=== PATIENT | female | born 1940 | race Caucasian/White ===

== ENCOUNTER 2017-11-19 22:36 | Inpatient (IN) | payer MEDICARE, OTHER, SELFPAY ==
[2017-11-19 22:40] VITALS: BP 149/77; PULSE 97; RESP 15; TEMP 36.3; O2SAT 97; BMI 29.2
--- NOTE | 2017-11-19 23:02 | ED.ABDPAIN ---
HPI - Abdominal Pain General Chief Complaint: Abdominal Pain Stated Complaint: BACK AND STOMACH PAIN Time Seen by Provider: 11/19/17 23:02 Source: patient and family Mode of arrival: ambulatory Limitations: no limitations History of Present Illness HPI narrative: Patient presents to the emergency department with a chief complaint of worsening generalized abdominal pain with nausea and vomiting since noon today. She has a history of small-bowel obstruction and states this feels similar. Patient denies fever but has had chills at home. MD complaint: abdominal pain Onset (ago): hour(s) Pain Consistency: constant Location: diffuse Severity: severe Severity scale (1-10): 10 Quality: stabbing and aching Radiation: none Migration to: no migration Relieving factors: nothing Exacerbating factors: nothing Related Data Home Medications Medication Instructions Recorded Confirmed CA PANTOTHENATE/FOLIC ACID/VIT 1 tab PO QDAY #0 tab 02/02/13 (MULTIVITAMIN) Glucosamine Sulfate (GLUCOSAMINE) 1,000 mg PO BID #0 02/02/13 [FATOUMATA RED] 300 mg PO QDAY #0 02/02/13 [POMEGRANATE] 1 cap PO BID #0 02/02/13 Previous Rx's Medication Instructions Recorded ASPIRIN (Aspirin EC) 81 mg PO DAILY #90 07/14/12 simvastatin 40 mg PO QDAYPM #90 tab 12/23/16 lisinopril 10 mg PO Q DAY #90 tab 01/21/17 carvedilol [Coreg] 3.125 mg PO BID #60 tab 02/09/17 diclofenac sodium 50 mg PO QDAY #90 tab 04/07/17 albuterol sulfate [Proventil HFA] 2 puff INH Q4HP PRN #1 inh 09/01/17 azithromycin [Zithromax] 0 OR SEE INSTRUCTIONS #6 tab 09/01/17 Allergies Allergy/AdvReac Type Severity Reaction Status Date / Time No Known Drug Allergies Allergy Verified 11/19/17 22:40 Review of Systems Review of Systems All systems reviewed & are unremarkable except as noted in HPI and below Constitutional Denies chills, Denies fever(s), Denies lethargy and Denies weakness Eyes Denies change in vision, Denies eye discharge, Denies irritation and Denies loss of vision ENT Ears, Nose, Mouth, and Throat: Denies change in voice, Denies neck pain and Denies sore throat Cardiovascular Denies chest pain, Denies irregular heart rhythm, Denies lightheadedness, Denies palpitations, Denies dyspnea, Denies dyspnea on exertion and Denies orthopnea Respiratory Denies cough, Denies dyspnea, Denies dyspnea on exertion and Denies wheezing Gastrointestinal Gastrointestinal: Reports abdominal pain, Denies change in bowel habits, Denies diarrhea, Reports nausea and Reports vomiting Genitourinary Denies hematuria, Denies flank pain, Denies urinary incontinence and Denies urinary urgency Musculoskeletal Denies neck pain Integumentary/Breasts Denies pruritus, Denies erythema, Denies rash and Denies wounds Neurologic Denies confusion, Denies loss of vision and Denies weakness Psychiatric Denies anxiety, Denies confusion, Denies depression, Denies homicidal ideation and Denies suicidal ideation Endocrine Denies palpitations Hematologic/Lymphatic Denies easy bruising Allergic/Immunologic Denies wheezing PFSH Surgical History Status post colonoscopy Status post hysterectomy Family History Brother Colorectal cancer, Onset Age: 68 Mother CAD (coronary artery disease) Social History Smoking Status: Never smoker Exam Narrative Exam Narrative: Pleasant 77-year-old female in significant distress, pacing in the room clutching her abdomen Initial Vital Signs Initial Vital Signs: Vital Signs Temperature 97.4 F L 11/19/17 22:40 Pulse Rate 97 H 11/19/17 22:40 Respiratory Rate 15 11/19/17 22:40 Blood Pressure 149/77 H 11/19/17 22:40 Pulse Oximetry 97 11/19/17 22:40 Const General: cooperative, well developed and acute distress Nutritional Appearance: well nourished Orientation: alert, awake, oriented x3 and not confused [facility] Head: normocephalic and atraumatic Ears: external ears normal and TM's normal bilaterally Nose: external nose normal and No nasal discharge Face and sinus: sinuses nontender, face symmetric, no sinus tenderness and No dry mucous membranes Mouth: oral mucosae normal and moist mucous membranes Teeth and gingiva: dentition normal Throat: tonsils normal and uvula midline Eyes General: appearance normal, both eyes and all related structures Eyelids: eyelids normal Conjunctivae: conjunctivae normal Sclera: sclerae normal Pupils: PERRL EOM: EOM intact bilaterally Chest Chest: normal inspection of the chest Cardio Rate: regular rate Rhythm: regular rhythm Heart Sounds: no click, no gallops, no murmurs and no rubs Pulses: normal peripheral pulses GI Inspection: distended Palpation: soft, no hepatosplenomegaly, No guarding, No pulsatile mass and tender Auscultation: normal bowel sounds Skin General: no rashes or lesions noted, No jaundice and No petechiae Neuro General: alert, oriented x3, gait normal and no focal motor deficits Speech: speech normal Course Orders Ordered: ED Orders 11/19/17 23:42 Complete Blood Count AUTO DIFF Stat Comprehensive Metabolic Panel Stat Lipase Stat 11/19/17 23:43 XR acute abdomen series Stat Troponin I Stat 11/19/17 23:53 Urinalysis and Microscopic Stat 11/20/17 00:52 CT abdomen pelvis w con Stat Ondansetron HCl (Zofran) 4 mg IV Q4HR PRN PRN Reason: Nausea And Vomiting Last Admin: 11/20/17 00:24 Dose: 4 mg Discontinued Medications Hydromorphone HCl (Dilaudid) 0.5 mg IV NOW ONE Stop: 11/19/17 23:44 Last Admin: 11/20/17 00:24 Dose: 0.5 mg Sodium Chloride (Normal Saline 0.9%) 1,000 mls @ 1,000 mls/hr IV BOLUS ONE Stop: 11/20/17 00:42 Last Infusion: 11/20/17 01:40 Dose: 0 mls/hr Admin: 11/20/17 00:24 Dose: 1,000 mls/hr Reevaluation(s) Reevaluation #1: Patient feeling tremendous improvement after Dilaudid Consultations Consultation #1: call to recreational therapy aide Gen Surgery (Dr. Dumont) regarding admission whom is happy to accept and asks that we place an NG tube prior to sending upstairs Vital Signs - 8 hr 11/19/17 22:40 Temperature 97.4 F L Pulse Rate 97 H Respiratory Rate 15 Blood Pressure 149/77 H Pulse Oximetry 97 MDM - Abdominal Pain Lab Data Result diagrams: 11/20/17 00:20 11/20/17 00:20 Lab Results 11/20/17 11/20/17 11/20/17 Range/Units 00:20 00:20 00:20 WBC 11.4 H (4.5-11.0) X10^3/uL RBC 4.90 (4.0-5.2) X10^6/uL Hgb 14.3 (12.0-16.0) g/dL Hct 43.5 (36-46) % MCV 88.8 (80-100) fL MCH 29.2 (26-34) PG MCHC 32.8 (30-36) % RDW 14.5 (11.6-14.8) % Plt Count 260 (150-400) X10^3/uL Neut % (Auto) 79.2 H (50-75) % Lymph % (Auto) 13.4 L (25-40) % [facility] % (Auto) 6.4 (3-14) % Eos % (Auto) 0.5 L (2-4) % Baso % (Auto) 0.5 (0-2) % Neut # (Auto) 9000 H (1210-5128) /uL Sodium 143 (137-145) mmol/L Potassium 4.7 (3.4-5.1) mmol/L Chloride 106 (98-107) mmol/L Carbon Dioxide 24 (22-32) mmol/L BUN 22 H (7-17) mg/dL Creatinine 0.70 (0.52-1.04) mg/dL Estimated GFR > 60.0 (>60) mL/min BUN/Creatinine Ratio 31.4 H (6-22) Glucose 156 H (80-110) mg/dL Calcium 9.4 (8.4-10.2) mg/dL Total Bilirubin 0.5 (0.2-1.3) mg/dL AST 34 (14-36) IU/L ALT 32 (9-52) IU/L Alkaline Phosphatase 70 (38-126) U/L Troponin I < 0.012 (0.01-0.034) ng/mL Total Protein 7.5 (6.3-8.2) g/dL Albumin 4.3 (3.5-5.0) g/dL Globulin 3.2 (1.7-4.1) g/dL Albumin/Globulin Ratio 1.3 (1.0-2.8) Lipase 96 (23-300) U/L Discharge Plan Departure Patient Disposition: Admitted As Inpatient Clinical Impression: Small bowel obstruction
--- NOTE | 2017-11-19 23:43 | DI.RAD.S_ITS ---
PROCEDURE: XR ACUTE ABDOMEN SERIES INDICATIONS: Abdominal pain, history of small bowel obstruction TECHNIQUE: One view chest and two views of the abdomen were acquired. COMPARISON: [facility], , ABDOMEN ACUTE SERIES, 02/06/2017, 20:52. FINDINGS: Surgical changes and devices: None. Chest: Lungs are clear. Heart size is normal. No pleural effusions. No pneumoperitoneum. Abdomen: There are air-fluid levels in the mid abdomen. The moderate amount of stool in proximal colon and paucity of bowel gas in distal colon. No suspicious calcifications. Visualized solid organ contours appear normal. Bones: No suspicious bony lesions. Scoliosis and degenerative changes in lumbar spine. IMPRESSION: Suspected early small bowel obstruction. Dictated by: Bahman Jsohua M.D. on 11/20/2017 at 7:43 Approved by: Bahman Joshua M.D. on 11/20/2017 at 7:44
[2017-11-20] VITALS (13 sets, daily range): BP systolic 95–157; BP diastolic 41–76; PULSE 71–92; RESP 11–18; TEMP 36.5–37.6; O2SAT 93–99; BMI 29.2
--- NOTE | 2017-11-20 | PATH_ITS ---
[facility] Accession Number: [id number] . 01 Material submitted: . SMALL BOWEL SEGMENT, POSSIBLE MASS . 02 Diagnosis: Segment of Small Bowel (6.2 cm in length): Localized ulcer measuring 2.1 x 0.3 cm with underlying fibrosis. Remainder of small bowel appears unremarkable. Negative for malignancy and significant atypia. Seven benign mesenteric lymph nodes. MRV/11/25/2017 . 02 Electronically signed: . Shashank Oneill MD, Pathologist NPI- [id number] . 01 Gross description: . Received in formalin, labeled [place], [place] and small bowel segment consists of a segment of small bowel, 6.2 cm in length and 3 cm in diameter. The segment has been previously opened. Each resection margin is received stapled closed with a long suture designating the proximal margin. There is a suture near the area of previous opening that designates an area of thickening. The radial margin is inked black. Opening of the segment reveals a slightly ulcerated area without folds at the area of designated wall thickening. The ulceration is 2.1 x 0.3 cm. The ulceration is 3.3 cm to the proximal margin and 2.2 cm to the distal margin. This ulceration is 3.2 cm to the nearest radial margin. 0.6 cm distal to the lesion is an area of submucosal pigmentation. The remainder of the mucosa has the usual felix folds. Sectioning and palpation of the attached fat reveals multiple possible lymph nodes. Sofa Cover Inspector sections of the specimen are submitted as follows: A1-proximal margin; A2-distal margin; A3-radial margin, en face; R7-4-kqfpybzoge and submucosal pigmentation; L5-6-wxzdnyfv lymph nodes in toto. (ELAINE:[id number]) /MRV . 02 Pathologist provided ICD-10: K63.3 . 02 CPT . 163185 Performed at: 01 [facility] [address] [place] [address], [place], [place] [id number] MD Mark Carson MD Phone: [phone] Performed at: 02 [facility] [address] [place], [place] [id number] MD Robin Salvador MD Phone: [phone]
[2017-11-20] MEDS: SODIUM CHLORIDE 0.9% 1,000 ML 1000 ML IV (00:24)
[2017-11-20] MEDS: ONDANSETRON 4 MG/2 ML INJ IV ×3 (00:24→13:32)
[2017-11-20] MEDS: HYDROMORPHONE 0.5 MG INJ IV ×2 (00:24→03:22)
[2017-11-20 00:32] LABS: Add Manual Diff / Slide Review NO; Basophils Percent Auto 0.5 % (0-2); Eosinophils Percent Auto 0.5 % (2-4); Hematocrit 43.5 % (36-46); Hemoglobin 14.3 g/dL (12.0-16.0); Lymphocytes Percent Auto 13.4 % (25-40); Mean Corpuscular HGB Conc 32.8 % (30-36); Mean Corpuscular Hemoglobin 29.2 PG (26-34); Mean Corpuscular Volume 88.8 fL (80-100); Monocytes Percent Auto 6.4 % (3-14); Neutrophils Absolute Auto 9000 /uL (3000-5900); Neutrophils Percent Auto 79.2 % (50-75); Platelet Count 260 X10^3/uL (150-400); Red Cell Distribution Width 14.5 % (11.6-14.8); White Blood Cell Count 11.4 X10^3/uL (4.5-11.0)
[2017-11-20 00:44] LABS: Alanine Aminotransferase 32 IU/L (9-52); Albumin 4.3 g/dL (3.5-5.0); Albumin Globulin Ratio 1.3 (1.0-2.8); Alkaline Phosphatase 70 U/L (38-126); Aspartate Aminotransferase 34 IU/L (14-36); BUN Creatinine Ratio 31.4 (6-22); Bilirubin Total 0.5 mg/dL (0.2-1.3); Blood Urea Nitrogen 22 mg/dL (7-17); Calcium 9.4 mg/dL (8.4-10.2); Carbon Dioxide 24 mmol/L (22-32); Chloride 106 mmol/L (98-107); Estimated Glomerular Filt Rate > 60.0 mL/min (>60); Globulin 3.2 g/dL (1.7-4.1); Glucose 156 mg/dL (80-110); HEMOLYSIS < 15 (0-50); Lipase 96 U/L (23-300); Potassium 4.7 mmol/L (3.4-5.1); Sodium 143 mmol/L (137-145); Total Protein 7.5 g/dL (6.3-8.2)
--- NOTE | 2017-11-20 00:52 | DI.CT.S_ITS ---
PROCEDURE: CT ABDOMEN PELVIS W CON INDICATIONS: severe abdominal pain,nausea, vomiting, history of obstruction TECHNIQUE: After the administration of intravenous contrast, 5 mm thick sections acquired from the diaphragm to the symphysis. 5 mm coronal and sagittal reformats were acquired. For radiation dose reduction, the following was used: automated exposure control, adjustment of mA and/or kV according to patient size. COMPARISON: [facility], CT, ABDOMEN/PELVIS WITH CONTRAST, 07/19/2017, 10:36. [facility], CR, XR ACUTE ABDOMEN SERIES, 11/19/2017, 23:24. FINDINGS: Image quality: Excellent. ABDOMEN: Lung bases: Lung bases are clear. Heart size is normal. Solid organs: Liver is normal in size and enhancement. Gallbladder is absent. Biliary system is non dilated. Pancreas enhances normally. Spleen is normal in size and enhancement. No adrenal nodules. Kidneys demonstrate normal size and enhancement, without hydronephrosis. Peritoneum and bowel: Stomach and proximal small bowel loops are filled with fluid and mildly distended. Proximal small bowel with measure up to 3.5 cm in diameter. Distal small bowel loops and colon loops are decompressed. The transitional zone is in the right lower quadrant. Appendix is not identified. There is a small amount of free fluid. No free air. Nodes and vessels: No retroperitoneal or mesenteric adenopathy by size criteria. Aorta and inferior vena cava are normal in size. Miscellaneous: No ventral hernias. PELVIS: Genitourinary: Bladder wall thickness is normal. Uterus is absent consistent with hysterectomy. No adnexal mass. A small amount of free fluid is noted in the cul-de-sac.. Miscellaneous: No inguinal hernias or adenopathy. Bones: No suspicious bony lesions. No vertebral body compression fractures. Scoliosis. There are degenerative changes in lumbar spine. IMPRESSION: 1. The CT findings are consistent with small bowel fashion. The transitional zone is in the right lower quadrant, presumably involving the distal ileum. 2. Small amount of free fluid. No free air. 3. Hysterectomy. No significant discrepancy with the monitoring tech radiology preliminary report. Dictated by: Bahman Joshua M.D. on 11/20/2017 at 7:53 Approved by: Bahman Joshua M.D. on 11/20/2017 at 8:00
[2017-11-20 00:56] LABS: Troponin I < 0.012 ng/mL (0.01-0.034)
--- NOTE | 2017-11-20 02:56 | DI.RAD.S_ITS ---
PROCEDURE: XR ABDOMEN 1V INDICATIONS: NG placement TECHNIQUE: One view of the abdomen acquired. COMPARISON: [facility], CR, XR ACUTE ABDOMEN SERIES, 11/19/2017, 23:24. FINDINGS: There is a nasogastric tube with the tip in the proximal stomach. The sidehole of the NG tube is at the GE junction. Surgical changes and devices: None. Bowel: Small bowel loops are mildly distended. Soft tissues: No suspicious abdominal calcifications. Visualized solid organ contours appear normal in size. Bones: No suspicious bony lesions. Scoliosis and degenerative changes in lumbar spine. IMPRESSION: NG tube is in the proximal stomach. Dictated by: Bahman Joshua M.D. on 11/20/2017 at 7:48 Approved by: Bahman Joshua M.D. on 11/20/2017 at 7:49
[2017-11-20] MEDS: SODIUM CHLORIDE 0.9% 1,000 ML 125 ML IV ×2 (04:13→11:36)
--- NOTE | 2017-11-20 04:38 | PC.NURSE ---
Pt admitted to unit AxOx3. Telemetry placed. NPO. IVF and FINISHING MACHINE OPERATOR connected as ordered. No complaints of pain at this time. No nausea/vomitting. NGT is a 16Fr connected to low intermittent suction. Pt states she is a exercise/diet controlled diabetic with some numbness in bilateral feet at baseline. Ambulatory. Bed alarm on. [place] blanchable skin to b/l buttocks. T&P q2h. Continuous pulse ox connected, tolerating room air at 95% with no resp distress noted. Call chisholm in reach.
[2017-11-20] MEDS: HYDROMORPHONE PCA 6 MG/30 ML PCA.VIAL IV (06:51)
--- NOTE | 2017-11-20 11:11 | PM.HP.1 ---
History of Present Illness Date Patient Seen: 11/20/17 Time Patient Seen: 09:00 Chief complaint: BACK AND STOMACH PAIN Narrative: 76-year-old female known to me from prior admissions for acute onset of abdominal pain, nausea, and vomiting consistent with small-bowel obstruction who presented several hours ago to the emergency department here at [facility] with recurrent such symptoms. She states that her episode began at approximately noon yesterday of acute onset. She was in her normal state of health yesterday morning. In the early afternoon yesterday she began to experience diffuse abdominal pain and nausea. Nausea persisted and is still present. She did have 1 episode emesis. She attempted to eat some crackers at approximately 1 o'clock yesterday afternoon but did not find this agreeable. She has since been anorexic and avoiding any type of oral intake. Pain progressed significantly and is now mainly in the right lower quadrant radiating to the back. Pain is described as sharp but intermittently cramping and unrelenting. Last bowel movement was reportedly normal yesterday morning. However, she has not really passed any significant flatus since then. Denies any dysuria or hematuria. She has been unable to find a comfortable position either sitting or lying down. Currently her pain is improving with intravenous narcotic medications. Denies any subjective fever or chills. Feels mildly subjectively distended currently. Patient History Medical History Coronary artery disease (Acute) Diabetic neuropathy (Acute) Hyperlipidemia (Acute) Myocardial infarction (Acute) Type 2 diabetes mellitus (Acute) Surgical History History of cholecystectomy (Acute) History of coronary artery stent placement (Acute) Status post coronary angiogram (Acute) Status post colonoscopy Status post hysterectomy Family & Social History Family History: Reviewed 11/20/17 by Nate Vo MD Social History: household members spouse Prior Living Arrangements House Safety & Behavioral: Feels Safe in Current Yes Environment Been Physically Hurt or No Threatened By a Person Suicidal Ideation Description None Suicide Plan Description No Plan Tobacco & Substance use: Smoking Status Never smoker alcohol intake frequency 0-2 drinks per day Substance Use Type does not use Meds Home Medications Medication Instructions Recorded Confirmed Type ASPIRIN (Aspirin EC) 81 mg PO DAILY #90 07/14/12 11/20/17 Rx CA PANTOTHENATE/FOLIC ACID/VIT 1 tab PO QDAY #0 tab 02/02/13 11/20/17 History (MULTIVITAMIN) Glucosamine Sulfate (GLUCOSAMINE) 1,000 mg PO BID #0 02/02/13 11/20/17 History [FATOUMATA RED] 300 mg PO QDAY #0 02/02/13 11/20/17 History [POMEGRANATE] 1 cap PO BID #0 02/02/13 11/20/17 History simvastatin 40 mg PO QDAYPM #90 tab 12/23/16 11/20/17 Rx lisinopril 10 mg PO Q DAY #90 tab 01/21/17 11/20/17 Rx carvedilol [Coreg] 3.125 mg PO BID #60 tab 02/09/17 11/20/17 Rx diclofenac sodium 50 mg PO QDAY #90 tab 04/07/17 11/20/17 Rx albuterol sulfate [Proventil HFA] 2 puff INH Q4HP PRN #1 inh 09/01/17 11/20/17 Rx Allergies Allergy/AdvReac Type Severity Reaction Status Date / Time No Known Drug Allergies Allergy Verified 11/19/17 22:40 Review of Systems Constitutional Constitutional: Denies chills, Reports fatigue, Denies fever(s) and Reports poor appetite Eyes Eyes: Denies change in vision and Reports requires corrective lenses ENT Ears, Nose, Mouth, and Throat: No change in voice and No throat swelling Cardiovascular Cardiovascular: Denies chest pain at rest, Denies chest pain with activity, Denies rapid, pounding, or irregular heartbeat and Denies shortness of breath Respiratory Respiratory: Denies dyspnea and Denies wheezing Gastrointestinal Gastrointestinal: Reports as per HPI, Denies melena and Denies hematochezia Genitourinary Genitourinary: Denies urinary hesitancy Musculoskeletal Musculoskeletal: Reports joint swelling, Denies numbness and Denies tingling Integumentary/Breasts Skin/Breast: Denies change in breast shape and Denies unusual bruising Neurologic Neurologic: Denies numbness, Denies tingling and Denies tremor(s) Psychiatric Psychiatric: Denies anxiety and Denies depression Endocrine Endocrine: Reports fatigue and Denies palpitations Hematologic/Lymphatic Hematologic/Lymphatic: Denies easy bleeding and Denies easy bruising Allergic/Immunologic Allergic/Immunologic: Denies throat swelling and Denies wheezing Exam Vital Signs (past 8 hours): - 11/20/17 03:39 11/20/17 08:00 Temperature 98.3 F 98.1 F Pulse Rate 79 71 Respiratory Rate 18 14 Blood Pressure 149/73 H 157/70 H Pulse Oximetry 94 96 Oxygen Delivery Method Room Air Narrative Exam Narrative: Well-nourished well-developed elderly female in no acute distress but does appear acutely ill. Lying in bed. She appears mildly uncomfortable. Alert oriented x3. Daughter is at the bedside for my entire visit. She has no fevers or tachycardia since admission Sclera nonicteric Nasogastric tube is present draining blood tinged bilious fluid. From the record I believe she has had approximately 600 cc output from the nasogastric tube since approximately 3 o'clock this morning. Neck is supple Chest clear to auscultation bilaterally. No crackles or wheezes. Regular rate and rhythm. Abdomen is distended and mildly tympanitic. She has hyperactive bowel sounds. She is focally tender in the right lateral abdomen with no involuntary guarding but she clearly has some element of voluntary guarding with deeper palpation. No masses. No hepatomegaly. Extremities show no clubbing, cyanosis, or edema. Dorsal pedis pulses are palpable bilaterally Objective Labs Result Diagrams: 11/20/17 00:20 11/20/17 00:20 Labs: Laboratory Results - last 24 hr 11/20/17 11/20/17 11/20/17 00:20 00:20 00:20 WBC 11.4 H RBC 4.90 Hgb 14.3 Hct 43.5 MCV 88.8 MCH 29.2 MCHC 32.8 RDW 14.5 Plt Count 260 Neut % (Auto) 79.2 H Lymph % (Auto) 13.4 L [place] % (Auto) 6.4 Eos % (Auto) 0.5 L Baso % (Auto) 0.5 Neut # (Auto) 9000 H Sodium 143 Potassium 4.7 Chloride 106 Carbon Dioxide 24 BUN 22 H Creatinine 0.70 Estimated GFR > 60.0 BUN/Creatinine Ratio 31.4 H Glucose 156 H Calcium 9.4 Total Bilirubin 0.5 AST 34 ALT 32 Alkaline Phosphatase 70 Troponin I < 0.012 Total Protein 7.5 Albumin 4.3 Globulin 3.2 Albumin/Globulin Ratio 1.3 Lipase 96 I have personally reviewed her acute abdominal series as well as her CT scan of the abdomen and pelvis done in the emergency department earlier this morning. Findings are consistent with small-bowel obstruction with air-fluid levels and dilated small bowel. There is some small amount of free fluid in the pelvis. No free air. No significant bowel wall thickening. 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 She has been symptomatic intermittently multiple times throughout the last 12 months. She has required hospitalization on a couple of occasions for such as well. She now has evidence of a significant bowel obstruction with associated mild leukocytosis and tenderness. I suspect the etiology is likely postoperative adhesions from prior surgeries. I discussed the findings and pathophysiology of small-bowel obstruction with the patient and her family once again. She clearly requires ongoing nasogastric tube decompression and IV fluid resuscitation. However, I suspect that she will require laparotomy with lysis of adhesions and possible bowel resection this admission. I discussed this with her at length. Technical details of such an operation were explained. Risks, benefits, alternatives were discussed. The alternative of observation only remains, but she has now failed to truly remain symptom free over the last several month's. Risks including but not limited to anesthesia, aspiration, bleeding, pain, need for transfusion, scars, infection, poor wound healing, need for bowel resection, anastomotic leak, need for ostomy, need for drains, bladder injury, ureter injury, liver injury small-bowel injury, colon injury, and need for further major abdominal surgery were explained at length. She also understands that she could have recurrent small-bowel obstructions in the future despite successful surgery this admission. Possibility of cardiopulmonary event was also explained. Anticipated postoperative course and recovery were reviewed as well. All questions were answered to her satisfaction, and she voiced understanding. She was agreeable to the plan. Orders were written. We will continue current regimen and resuscitation and I will reassess later today. If she shows no signs of improvement then surgery would be indicated. Quality VTE Deep Vein Thrombosis/Pulmonary Embolism Present on Admission: No
--- NOTE | 2017-11-20 12:28 | RT ---
When doing patients pre op EKG the results stated that there was anteroseptal myocardial infarction and that it was probaly recent I informed Huber WU of the results and he paged doctor Gilda immediately.
--- NOTE | 2017-11-20 15:18 | PC.NURSE ---
Addendum entered by Geoff Vargas R.N. 11/20/17 17:48: report was called to Karey WU in ICU. Original Note: Addendum entered by Geoff Vargas R.N. 11/20/17 17:44: patient is off the unit for surgery at this time, notified that patient will be going to ICU post-op from surgery. Family has been notified of room change and belongings were taken down to unit by nurse Sun. Original Note: Patient is A&O x3 pleasant and cooperative w/ staff and able to make needs known when nec. Patient denies any pain at this time but states nausea is still present dispite tx given. NG tube is set to intermed. suction, drainage is dark brick red in color. CERAMIC RESTORER Dilaudid at bedside patient has yet to use any. Sched. for surgery at some point this afternoon/evening. Patient is concerned that they have yet to come get her for surgery. Surgerical nurse arrived to room at 1532 to turkey picker patietn and trans. to surg. Patient was awake and talking when left, VSS, 99% on RA. Suction was unhooked and IV was saline locked for departure to surgery.
--- NOTE | 2017-11-20 15:26 | CM.DANOTE ---
DCP Chart Review Patient is a 77 year old female who was admitted on 11/20/17 for Back Pain. Pt has MCR and TEAM for insurance and her PCP is Dr. Espinoza. EMR was reviewed. Per MD, pt to have urgent surgery this afternoon and pt has had multiple admits for her bowel issues. SW unable to complete bedside assessment today due to pt being off the floor for surgical procedure. Pt has a hx of admits for similar medical needs and has been able to d/c home with no SW needs. Pt lives at home in [place] with her and is Independent with ADL's at baseline and does not use equipment to ambulate and still drives. Plan: SW to follow closely for bedside assessment tomorrow after her surgical procedure today towards determining d/c planning needs. ALFREDO Chavez
[2017-11-20] MEDS: LACTATED RINGERS 1,000 ML 1000 ML IV ×2 (15:45→17:17)
[2017-11-20] MEDS: CEFOTETAN 2 GM/50 ML PIGGYBACK IV (16:06)
--- NOTE | 2017-11-20 16:39 | SUR.OPER ---
Supine on padded OR bed, head on pillow, arms secured on padded arm boards at <90 degrees abduction, legs uncrossed, safety belt at thigh, tape over blanket over lower legs. gel pad under heels.
--- NOTE | 2017-11-20 17:30 | PM.PROC.1 ---
Procedures Date/Time Date of procedure: 11/20/17 Time of procedure: 15:48 General Procedure description: Thoracic epidural performed for post-op pain control after laparotomy, requested by General Surgery, Dr. Vo. Patient was taken into OR and sat up with ASA monitoring. 50mcg fentanyl and 1mg Versed were given for procedural sedation. Skin prepped with chlorhexidine and allowed to fully dry. Sterile drapes, gloves and mask used. 1% lidocaine was injected at T8-9 to make skin wheal. 18ga Saya[place]ead needle with canula was engaged into spinal ligaments in left paramedian approach. Saline loss of resistance technique used to locate epidural space. SHAKIR at 4.5 cm from skin. Catheter threaded to 9cm and taped to skin using large tegaderm. Cather was aspirated with negative draw back. 3mL of 1.5% lidocaine with epinephrine was injected for test dosing. Negative test dose. Patient tolerated the procedure well. No complications.
--- NOTE | 2017-11-20 17:37 | P.PCN_ITS ---
Procedures Date/Time Date of procedure: 11/20/17 Time of procedure: 15:48 General Procedure description: Thoracic epidural performed for post-op pain control after laparotomy, requested by General Surgery, Dr. Vo. Patient was taken into OR and sat up with ASA monitoring. 50mcg fentanyl and 1mg Versed were given for procedural sedation. Skin prepped with chlorhexidine and allowed to fully dry. Sterile drapes, gloves and mask used. 1% lidocaine was injected at T8 -9 to make skin wheal. 18ga [place] [employer] needle with canula was engaged into spinal ligaments in left paramedian approach. Saline loss of resistance technique used to locate epidural space. SHAKIR at 4.5 cm from skin. Catheter threaded to 9cm and taped to skin using large tegaderm. Cather was aspirated with negative draw back. 3mL of 1.5% lidocaine with epinephrine was injected for test dosing. Negative test dose. Patient tolerated the procedure well. No complications.
[2017-11-20] MEDS: SODIUM CHLORIDE 0.9% 1,000 ML 100 ML IV (18:58)
--- NOTE | 2017-11-20 19:06 | P.OP_ITS ---
Operative Date/Time/Diagnoses - Date of procedure: 11/20/17 Time of procedure: 18:51 Post-op diagnosis: same Procedure & Clinicians Procedure: 1. Exploratory laparotomy 2. Lysis of adhesions 3. Segmental small bowel resection of the ileum 4. Primary small bowel anastomosis Same procedure as scheduled: Yes Indications: 77-year-old female who presented earlier this morning in the emergency department with nausea, vomiting, anorexia, and progressive abdominal pain. She had not had flatus or bowel movement since yesterday. Examination and evaluation were consistent with bowel obstruction. This is actually her 3rd or 4th episode of such within the last year or so. She was therefore recommended to undergo laparotomy. Surgeon: Nate Vo Click Yes if Unassisted: Yes Anesthesia Type: General and Epidural (Placed per Anesthesiology for postoperative analgesia) Operative Notes Findings: 1. Pelvic adhesion between the sigmoid colon and right fallopian tube serving as point of obstruction within the ileum 2. Completely viable small bowel and colon 3. Small amount of serous fluid in the pelvis but no purulent material 4. 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 Widely patent small-bowel anastomosis at the conclusion of the case Specimen(s): other (Segment of small bowel) Implants & Drains: None Estimated Blood Loss (mL): 25 Blood products transfused: none Procedure in detail: After obtaining informed consent the patient was brought to the operating room placed supine on the table. After placement of the epidural catheter per Anesthesiology Service a Perez catheter was inserted once she had been placed under general anesthesia. Please see the anesthesia record for details. Abdomen was prepped and draped in usual sterile fashion. All pressure points were padded appropriately prior to the case as well. A SCOAP time-out was performed per standard protocol. Vertical midline incision was created with a 10. Scalpel blade from just above the umbilicus incorporating the upper portion of the existing midline hysterectomy scar. Bovie was used to achieve hemostasis and carried the dissection down to the subcutaneous tissue to the rectus fascia. Fascia was divided in the midline above the umbilicus in the surgeon's finger was inserted into the abdominal cavity. Remaining portion of the fascia for the length of the incision was opened with the Bovie over the Surgeons inserted fingers. Manual retraction was achieved with Da Silva retractors and the abdomen was explored. Findings are as above. Fluid was suctioned from the pelvis. The small bowel point of obstruction was easily reduced from the adhesion in the adhesion divided easily with the Bovie. Fallopian tubes and ovaries bilaterally were examined and noted be completely normal consistent with age. No evidence of masses. Small bowel was subsequently examined from the ligament of Treitz to the ileocecal valve. In fact, I examined the bowel on 3 separate occasions due to the findings of the possible stricture at the point of obstruction. Cecum, ascending colon, transverse colon, descending colon, and sigmoid colon to the rectosigmoid junction showed diverticulosis but no evidence of inflammation or palpable masses. No retroperitoneal masses were palpable. Stomach was normal with a nasogastric tube in good position. Liver could not be visualized due to significant adhesions from prior open cholecystectomy. Omentum was otherwise unremarkable as well. Pelvis was without masses. No other significant adhesions were identified. The questionable area of the small bowel at the point of obstruction was again meticulously examined and palpated. There appeared to be an associated stricture intraluminally but no obvious masses or other disease along the serosal surface. Entire small bowel mesentery was normal without masses or lymphadenopathy. Because of the small isolated segment of the small bowel that appeared to be strictured I elected to resect this portion and perform a primary anastomosis. Hemostats were used to create defect along the mesentery proximally and distally through which the 60 mm FINESSE stapler was inserted and fired. After dividing the bowel proximally and distally the mesentery was taken down between hemostats using Metzenbaum scissors. Three 0 silk ties were used to achieve hemostasis. Bowel was quite viable and there was adequate bleeding from the staple lines. Specimen was opened on the back table with a 15. Scalpel blade and again findings are as above. There was clearly a visible area of stricture within the mucosa and submucosa extending into the bowel wall. Again, however, this did not appear to be consistent with neoplasm but was obvious a point of obstruction. Gowns and gloves were changed. Primary anastomosis between the proximal and distal ileum was then performed by approximating the anti mesenteric sides of the bowel with interrupted 3 0 silk seromuscular Lembert sutures. Anti mesenteric corners of the staple lines proximally and distally were removed with curved Rai scissors and separate limbs of the 60 mm FINESSE stapler were then inserted and fired. The anastomosis was then performed in a [id number] fashion. Hemostasis was verified along the staple line. Great care was taken to avoid torsion of the bowel or inclusion of any part of the mesentery within the staple line at the anastomosis. The residual defect at the anastomosis was then closed with an inner running layer of 2 individual 3 0 Vicryl suture using [place] technique. The proximal and distal sutures were tied in the midline. The mucosa imbricated nicely. Sec layer of the anastomosis was then completed with interrupted 3 0 silk seromuscular Lembert sutures. The residual staple lines were also oversewn in a similar fashion. Mesenteric defect was closed with 2 individual figure-of- eight interrupted 3 0 silk sutures. Again, the bowel was noted to be without any tension whatsoever and was completely viable. Anastomosis was noted to be widely patent by palpation. In fact, enteric contents were easily milked through the anastomosis. Gloves and instruments were again changed. After verifying hemostasis bowel was replaced into the abdominal cavity and gently curving loops. Abdomen was irrigated with copious amounts of sterile saline solution which was suctioned and noted to be clear. Omentum was placed over the bowel and fascia was closed with 2 individual running #1 Prolene sutures tied in the midline. Subcutaneous tissue was irrigated and noted to be hemostatic. Skin was closed with meek. Sterile dressing was applied. Anesthesia was reversed and patient extubated in the operating room. She was taken recovery in stable condition. Complications: none Condition: stable Disposition: PACU Plan for aftercare: 1. Admit to ICU per hospital protocol due to epidural catheter 2. Await bowel function
[2017-11-20] MEDS: FENT 2MCG/BUPIV 0.125% EPI 2 MCG/100 ML PLAST..BAG 6 MCG EPIDURAL (19:45)
--- NOTE | 2017-11-20 19:50 | PC.NURSE ---
1850- Pt arrived via bed from PACU. Pt is alert and talking. Pt reports she is not having any pain. Pt abdomen has a dressing that is clean dry and intact. Pt is on 2l cannula saturation 97%. Perez draining clear yellow urine. Awaiting arrival of Dr. Mendoza to start the Epidural infusion. No pharmacist here to mix drip so Dr. Iyer is on his way. Pt able to move both lower extremities and states she has thigh sensation. lungs are clear to auscultation. Family is at bedside. Pt is in NSR. Will Monitor
[2017-11-21] VITALS (10 sets, daily range): BP systolic 112–125; BP diastolic 48–60; PULSE 75–96; RESP 15–20; TEMP 36.6–38; O2SAT 93–96
[2017-11-21] MEDS: SODIUM CHLORIDE 0.9% 1,000 ML 100 ML IV ×3 (01:17→21:24)
[2017-11-21] MEDS: INSULIN ASPART 100 UNIT/ML INSULN PEN SUBCUT ×3 (01:18→13:02)
[2017-11-21 05:47] LABS: Blood Urea Nitrogen 12 mg/dL (7-17); Calcium 7.7 mg/dL (8.4-10.2); Carbon Dioxide 30 mmol/L (22-32); Chloride 103 mmol/L (98-107); Estimated Glomerular Filt Rate > 60.0 mL/min (>60); Glucose 151 mg/dL (80-110); HEMOLYSIS < 15 (0-50); Potassium 3.8 mmol/L (3.4-5.1); Sodium 140 mmol/L (137-145)
[2017-11-21 05:48] LABS: Add Manual Diff / Slide Review NO; Basophils Percent Auto 0.1 % (0-2); Hematocrit 36.7 % (36-46); Hemoglobin 12.2 g/dL (12.0-16.0); Lymphocytes Percent Auto 10.4 % (25-40); Mean Corpuscular HGB Conc 33.1 % (30-36); Mean Corpuscular Hemoglobin 29.7 PG (26-34); Mean Corpuscular Volume 89.6 fL (80-100); Monocytes Percent Auto 9.4 % (3-14); Neutrophils Absolute Auto 8600 /uL (3000-5900); Neutrophils Percent Auto 80.1 % (50-75); Platelet Count 178 X10^3/uL (150-400); Red Cell Distribution Width 14.5 % (11.6-14.8); White Blood Cell Count 10.8 X10^3/uL (4.5-11.0)
[2017-11-21] MEDS: FENT 2MCG/BUPIV 0.125% EPI 2 MCG/100 ML PLAST..BAG 6 MCG EPIDURAL (08:25)
[2017-11-21] MEDS: ENOXAPARIN 40 MG/0.4 ML SYRINGE SUBCUT (09:42)
[2017-11-21] MEDS: PANTOPRAZOLE 40 MG VIAL IV (09:43)
--- NOTE | 2017-11-21 10:48 | CM.DANOTE ---
Discharge Planning/Care Management CM Discharge Assessment Start: 11/21/17 10:47 Freq: Status: Active Protocol: Document 11/21/17 10:47 (Rec: 11/21/17 10:48 [id number]) Discharge Planning Assessment History Provided By Patient Friend Significant Other Medical Record Has Patient been admitted in last 30 No days? Is this patient on Medicare? Yes Prior Living Arrangements House Household Members spouse Type of transporation used prior to Drives own vehicle admit Independent with ADL's Yes Is patient alert and oriented? Yes Referrals Initiated None needed Discharge Plan Home Review Status In Process Next Review Type Continued Stay Review Met with patient ,spouse and good friend: Patient reports no needs will be needed at discharge as she has a large family (3 kids, 13 grandchildren) who would assist with anything if needed. At this time patient is in ICU with NG tube in place. CM team to follow as needed.
--- NOTE | 2017-11-21 10:57 | P.PN_ITS ---
Subjective Date Patient Seen: 11/21/17 Time Patient Seen: 10:51 Interval history: Patient denies any pain. The epidural catheter is working well. No numbness or tingling in the lower extremities. She has ambulated this morning with assistance. Denies nausea or vomiting. No flatus. Denies chest pain or shortness of breath. Exam Vital Signs (past 8 hours): - 11/21/17 04:00 11/21/17 06:00 11/21/17 07:51 Temperature 99 F 100.1 F H Pulse Rate 96 H 94 H 92 H Respiratory Rate 15 16 18 Blood Pressure 117/48 L 113/53 L 112/52 L Pulse Oximetry 96 96 94 Oxygen Delivery Method Nasal Cannula Oxygen Flow Rate 1 Narrative Exam Narrative: Well-nourished well-developed elderly female sitting comfortably in the bedside chair in no acute distress. Alert oriented x3. Nasogastric tube is in good position draining bilious fluid. Total output has been approximately 1400 cc since surgery. Chest clear to auscultation bilaterally with regular rate and rhythm. No murmurs. No crackles or wheezes. Abdomen is distended and soft. She is appropriately tender with no guarding or rebound. Dressing is clean, dry, and intact. No bowel sounds. Extremities show no clubbing or cyanosis Perez catheter is in place draining clear yellow urine. Urine output has been adequate throughout the night. Objective Labs Result Diagrams: 11/21/17 05:00 11/21/17 05:00 Labs: Laboratory Results - last 24 hr 11/20/17 11/20/17 11/21/17 12:30 18:50 05:00 WBC 10.8 RBC 4.10 Hgb 12.2 Hct 36.7 MCV 89.6 MCH 29.7 MCHC 33.1 RDW 14.5 Plt Count 178 Neut % (Auto) 80.1 H Lymph % (Auto) 10.4 L Reeves % (Auto) 9.4 Eos % (Auto) 0.0 L Baso % (Auto) 0.1 Neut # (Auto) 8600 H Sodium Potassium Chloride Carbon Dioxide BUN Creatinine Estimated GFR BUN/Creatinine Ratio Glucose Calcium Nasal Screen MRSA (PCR) Negative for mrsa Blood Type A Positive Antibody Screen Negative 11/21/17 05:00 WBC RBC Hgb Hct MCV MCH MCHC RDW Plt Count Neut % (Auto) Lymph % (Auto) Reeves % (Auto) Eos % (Auto) Baso % (Auto) Neut # (Auto) Sodium 140 Potassium 3.8 Chloride 103 Carbon Dioxide 30 BUN 12 Creatinine 0.80 Estimated GFR > 60.0 BUN/Creatinine Ratio 15.0 Glucose 151 H Calcium 7.7 L Nasal Screen MRSA (PCR) Blood Type Antibody Screen No new radiographic studies for review Assessment & Plan Plan: Assessment/Plan Narrative: 77-year-old female postoperative day 1 from exploratory laparotomy with lysis of adhesions and partial small-bowel resection who is currently stable and doing well overall. She has ongoing anticipated postoperative ileus. Low- grade fever likely secondary to atelectasis. Encouraged ambulation and incentive spirometry today. I would discussed in detail the intraoperative findings and procedure with the patient at length. I will change the dressing tomorrow. Laboratory studies currently show no significant abnormalities. Her blood glucose is controlled on sliding scale insulin. Epidural catheter is working quite well. Continue the epidural and pain management per anesthesiology services. DVT prophylaxis consisting of SCDs and Lovenox are in place. Lovenox 1st dose was given today following epidural insertion. Await bowel function. Will discontinue the Perez catheter once the epidural catheter has been discontinued over the next 2-3 days. All the above discussed with the patient in detail. All questions answered to her satisfaction, and she voiced understanding. Quality VTE Deep Vein Thrombosis/Pulmonary Embolism Present on Admission: No
[2017-11-21] MEDS: HYDROMORPHONE 0.5 MG INJ IV (23:10)
[2017-11-21] MEDS: FENT 2MCG/BUPIV 0.125% EPI 2 MCG/100 ML PLAST..BAG 8 MCG EPIDURAL (23:35)
[2017-11-22] VITALS (7 sets, daily range): BP systolic 110–150; BP diastolic 47–65; PULSE 73–82; RESP 16–18; TEMP 36.4–38; O2SAT 91–97
--- NOTE | 2017-11-22 00:21 | PC.NURSE ---
Epidural running at 8ml/hr at 2330 assessment and was told by Thomas Shirley RN she had recieved an order to increase epidural gtt from Dr. Hurtado by phone. When trying to hang new bag was unable as order had not been entered, nursing co-ordinator called as well as [facility]. Order entered.
[2017-11-22] MEDS: INSULIN ASPART 100 UNIT/ML INSULN PEN SUBCUT ×2 (06:24→12:18)
[2017-11-22] MEDS: SODIUM CHLORIDE 0.9% 1,000 ML 100 ML IV (07:39)
[2017-11-22] MEDS: ENOXAPARIN 40 MG/0.4 ML SYRINGE SUBCUT (09:11)
[2017-11-22] MEDS: PANTOPRAZOLE 40 MG VIAL IV (09:11)
--- NOTE | 2017-11-22 10:31 | PM.PN.1 ---
Subjective Date Patient Seen: 11/22/17 Time Patient Seen: 08:00 Interval history: Patient slept well overnight. She has slightly increased discomfort today but no significant pain. No nausea or vomiting. No chest pain or shortness of breath. She does have some mild desaturations while sleeping which quickly corrects when she is awake. Denies flatus or bowel movement. No subjective fever or chills. Exam Vital Signs (past 8 hours): - 11/22/17 05:15 11/22/17 07:55 Temperature 100.4 F H 98.2 F Pulse Rate 82 81 Respiratory Rate 16 18 Blood Pressure 120/58 L 129/55 H Pulse Oximetry 97 95 Oxygen Delivery Method Nasal Cannula Oxygen Flow Rate 3 Narrative Exam Narrative: Well-nourished well-developed female in no acute distress lying comfortably in the bed. Alert oriented x3. Low-grade temperature but now 98.2. No tachycardia. Blood pressure normal. Urine output adequate Nasogastric tube output 600 cc overnight. Fluid remains bilious. Chest clear to auscultation bilaterally Abdomen is slightly distended and tympanitic but soft. She is appropriately tender. Incision is clean, dry, and intact without erythema or ecchymoses. I personally change the dressing. Extremities show no clubbing, cyanosis, or edema Objective Labs Result Diagrams: 11/21/17 05:00 11/21/17 05:00 Labs: No new laboratory radiographic studies for review today Assessment & Plan Plan: Assessment/Plan Narrative: 77-year-old female now postoperative day 2 from exploratory laparotomy with lysis of adhesions and partial small-bowel resection for small-bowel obstruction who is overall doing well. Low-grade temperature likely secondary to atelectasis. I discussed this with her and encouraged coughing, deep breathing, and incentive spirometry. We will repeat her laboratory studies tomorrow. Change IV fluids to maintenance and discontinue the normal saline. Decrease IV fluid rate currently. Continue to monitor urine output. Continue nasogastric tube until she has signs of returning bowel function. She continues to have postoperative ileus which is not unanticipated. Continue sliding scale insulin and DVT prophylaxis. Appreciate epidural catheter management per anesthesiology service. Pain control is optimal. I discussed all the above with the patient and the nursing staff in detail. All questions were answered to the patient's satisfaction, and she voiced understanding. Orders were written. Quality VTE Deep Vein Thrombosis/Pulmonary Embolism Present on Admission: No
[2017-11-22] MEDS: DEXTROSE 5%-0.45NS W/KCL 40MEQ 1,000 ML 84 MEQ IV (12:17)
[2017-11-22] MEDS: FENT 2MCG/BUPIV 0.125% EPI 2 MCG/100 ML PLAST..BAG 8 MCG EPIDURAL ×2 (12:22→23:57)
[2017-11-23] MEDS: DEXTROSE 5%-0.45NS W/KCL 40MEQ 1,000 ML 84 MEQ IV ×2 (00:30→12:28)
[2017-11-23 05:00] VITALS: BP 128/53; PULSE 80; RESP 16; TEMP 37.1; O2SAT 92
--- NOTE | 2017-11-23 05:38 | PC.NURSE ---
mini shifter: 0230, pt awake for assist to reposition. Pt continues to feel dull numbness to abdomen and is now reporting some increased soreness to lower abdomen. This RN checked MAR to see available PRN pain control options and when pt observed again, she was resting and appeared comfortable Will allow to sleep and not disturb at this time. NG to LIS with clear pinkish orange drainage.
[2017-11-23] MEDS: INSULIN ASPART 100 UNIT/ML INSULN PEN SUBCUT ×3 (06:34→18:05)
[2017-11-23 07:37] VITALS: BP 137/49; PULSE 65; RESP 16; TEMP 36.6; O2SAT 92
--- NOTE | 2017-11-23 08:42 | PM.PN.1 ---
Subjective Date Patient Seen: 11/23/17 Time Patient Seen: 08:42 Interval history: Denies nausea or vomiting. Small amount of flatus but no bowel movement. Pain controlled. Did have some bloody saturation of her dressing yesterday but this has resolved overnight. Denies chest pain or shortness of breath. Exam Vital Signs (past 8 hours): - 11/23/17 05:00 11/23/17 07:37 Temperature 98.7 F 97.9 F Pulse Rate 80 65 Respiratory Rate 16 16 Blood Pressure 128/53 H 137/49 H Pulse Oximetry 92 92 Oxygen Delivery Method Room Air Oxygen Flow Rate 0 Narrative Exam Narrative: Well-nourished well-developed female lying comfortably in bed in no acute distress. Alert oriented x3. Remains afebrile and hemodynamically stable without tachycardia. Blood pressure normal. Stable on room air currently with saturations of approximately 92-94%. Nasogastric tube output is more clear and much less bilious today. Output is not completely reliable due to her intake of ice chips orally. However, output has significantly diminished since surgery. Good urine output which remains clear within the Perez bag. Chest clear to auscultation bilaterally with regular rate and rhythm. No murmurs, gallops, rubs. No crackles or wheezes. Abdomen is relatively quiet with minimal hypoactive bowel sounds. She is less distended today however. Minimally tympanitic. Dressing is clean, dry, and intact currently. I did not change it this morning as it was just done recently by the nursing staff. She is appropriately tender to palpation without guarding or rebound. Extremities show no clubbing or cyanosis Objective Labs Result Diagrams: 11/21/17 05:00 11/21/17 05:00 Labs: No new laboratory or radiographic studies review Her fingerstick blood sugars remain less than 180 consistently Assessment & Plan Plan: Assessment/Plan Narrative: 77-year-old female now postoperative day 3 from laparotomy with lysis of adhesions and partial small bowel resection for obstruction who is doing quite well. I will hold the Lovenox due to the bleeding incident. In addition, we will begin to wean the epidural and plan to remove it within the next 12-24 hours per anesthesiology. I will discuss this with them. Check laboratory studies tomorrow. Dressing changes as needed. Clamp the NG tube today and see how she does with regard any nausea or vomiting. If she continues to have returning bowel function with toleration of NG tube clamping then possibly discontinue the tube tomorrow. Continue current sliding scale insulin and IV fluid resuscitation. Once the epidural is out she will likely need a [employer] MANAGER for pain control. I discussed this with her in detail. Otherwise continue aggressive ambulation and pulmonary toilet. All questions were answered to her satisfaction, and she voiced understanding. Orders were written. Quality VTE Deep Vein Thrombosis/Pulmonary Embolism Present on Admission: No
--- NOTE | 2017-11-23 08:47 | P.PN_ITS ---
Subjective Date Patient Seen: 11/23/17 Time Patient Seen: 08:42 Interval history: Denies nausea or vomiting. Small amount of flatus but no bowel movement. Pain controlled. Did have some bloody saturation of her dressing yesterday but this has resolved overnight. Denies chest pain or shortness of breath. Exam Vital Signs (past 8 hours): - 11/23/17 05:00 11/23/17 07:37 Temperature 98.7 F 97.9 F Pulse Rate 80 65 Respiratory Rate 16 16 Blood Pressure 128/53 H 137/49 H Pulse Oximetry 92 92 Oxygen Delivery Method Room Air Oxygen Flow Rate 0 Narrative Exam Narrative: Well-nourished well-developed female lying comfortably in bed in no acute distress. Alert oriented x3. Remains afebrile and hemodynamically stable without tachycardia. Blood pressure normal. Stable on room air currently with saturations of approximately 92-94%. Nasogastric tube output is more clear and much less bilious today. Output is not completely reliable due to her intake of ice chips orally. However, output has significantly diminished since surgery. Good urine output which remains clear within the Perez bag. Chest clear to auscultation bilaterally with regular rate and rhythm. No murmurs , gallops, rubs. No crackles or wheezes. Abdomen is relatively quiet with minimal hypoactive bowel sounds. She is less distended today however. Minimally tympanitic. Dressing is clean, dry, and intact currently. I did not change it this morning as it was just done recently by the nursing staff. She is appropriately tender to palpation without guarding or rebound. Extremities show no clubbing or cyanosis Objective Labs Result Diagrams: 11/21/17 05:00 11/21/17 05:00 Labs: No new laboratory or radiographic studies review Her fingerstick blood sugars remain less than 180 consistently Assessment & Plan Plan: Assessment/Plan Narrative: 77-year-old female now postoperative day 3 from laparotomy with lysis of adhesions and partial small bowel resection for obstruction who is doing quite well. I will hold the Lovenox due to the bleeding incident. In addition, we will begin to wean the epidural and plan to remove it within the next 12-24 hours per anesthesiology. I will discuss this with them. Check laboratory studies tomorrow. Dressing changes as needed. Clamp the NG tube today and see how she does with regard any nausea or vomiting. If she continues to have returning bowel function with toleration of NG tube clamping then possibly discontinue the tube tomorrow. Continue current sliding scale insulin and IV fluid resuscitation. Once the epidural is out she will likely need a INTERNAL REVENUE SERVICE AGENT for pain control. I discussed this with her in detail. Otherwise continue aggressive ambulation and pulmonary toilet. All questions were answered to her satisfaction, and she voiced understanding. Orders were written. Quality VTE Deep Vein Thrombosis/Pulmonary Embolism Present on Admission: No
[2017-11-23] MEDS: PANTOPRAZOLE 40 MG VIAL IV (09:28)
[2017-11-23 12:10] VITALS: BP 142/55; PULSE 60; RESP 20; TEMP 36.6; O2SAT 95
--- NOTE | 2017-11-23 13:30 | PC.NURSE ---
Day Shift Note Pt up and walking in halls with FWW, SBA. Steady on feet. Epidural stopped and capped at [address] Hurtado. At 1300 pt reported increase in pain in my back and lower abdomen, unable to rate on pain scale but reported pain was manageable but there. Dr. Hurtado notified and order received to reconnect epidural with rate at 8 ml/hr. Pt resting in bed at this time. Dressing to abdomen is C/D/I, no saturation noted.
[2017-11-23] MEDS: FENT 2MCG/BUPIV 0.125% EPI 2 MCG/100 ML PLAST..BAG 8 MCG EPIDURAL (14:31)
[2017-11-23 14:45] VITALS: BMI 31.1
--- NOTE | 2017-11-23 15:08 | CM.DPC ---
DCP/continued: Reviewed chart. Patient remains in room# 106. Patient currently with epidural and NG tube. At this time d/c date unknown. Current plan is for patient to return home. Notes report patient has family support. P: CM team to follow closely for any d/c planning needs that may arise. ALFREDO Ahuja
[2017-11-23 16:08] VITALS: BP 141/56; PULSE 60; RESP 14; TEMP 37; O2SAT 97
[2017-11-23 19:59] VITALS: BP 138/59; PULSE 63; RESP 16; TEMP 37.7; O2SAT 92
[2017-11-24] VITALS (7 sets, daily range): BP systolic 134–152; BP diastolic 54–79; PULSE 52–68; RESP 16–20; TEMP 36.3–37.3; O2SAT 92–95
[2017-11-24] MEDS: DEXTROSE 5%-0.45NS W/KCL 40MEQ 1,000 ML 84 MEQ IV ×2 (00:37→12:32)
[2017-11-24] MEDS: FENT 2MCG/BUPIV 0.125% EPI 2 MCG/100 ML PLAST..BAG 8 MCG EPIDURAL (02:26)
[2017-11-24 05:17] LABS: Add Manual Diff / Slide Review NO; Basophils Percent Auto 0.6 % (0-2); Eosinophils Percent Auto 6.7 % (2-4); Hematocrit 30.5 % (36-46); Hemoglobin 10.1 g/dL (12.0-16.0); Lymphocytes Percent Auto 23.2 % (25-40); Mean Corpuscular Hemoglobin 29.5 PG (26-34); Mean Corpuscular Volume 89.4 fL (80-100); Monocytes Percent Auto 9.4 % (3-14); Neutrophils Absolute Auto 4000 /uL (3000-5900); Neutrophils Percent Auto 60.1 % (50-75); Platelet Count 154 X10^3/uL (150-400); Red Blood Cell Count 3.41 X10^6/uL (4.0-5.2); Red Cell Distribution Width 13.8 % (11.6-14.8); White Blood Cell Count 6.6 X10^3/uL (4.5-11.0)
[2017-11-24 05:25] LABS: BUN Creatinine Ratio 11.4 (6-22); Blood Urea Nitrogen 8 mg/dL (7-17); Carbon Dioxide 29 mmol/L (22-32); Chloride 102 mmol/L (98-107); Estimated Glomerular Filt Rate > 60.0 mL/min (>60); Glucose 138 mg/dL (80-110); HEMOLYSIS < 15 (0-50); Potassium 4.3 mmol/L (3.4-5.1); Sodium 138 mmol/L (137-145)
[2017-11-24] MEDS: INSULIN ASPART 100 UNIT/ML INSULN PEN SUBCUT ×3 (06:08→18:01)
[2017-11-24] MEDS: PANTOPRAZOLE 40 MG VIAL IV (09:02)
--- NOTE | 2017-11-24 09:32 | CM.DPC ---
DCP Cont: Per MD, pt continues to progress and attempt weaning of NG and epidural. Per RN, pt's NG is clamped and epidural to come out today sometime and still no bowel movement and pt currently NPO still. Pt has been ambulating halls well and supportive family bedside. Plan: SW to continue to follow after epidural removed and for eventual advancement of diet towards likely d/c home with lots of supportive family when medically stable. ALFREDO Chavez
[2017-11-24] MEDS: HYDROMORPHONE PCA 6 MG/30 ML PCA.VIAL IV ×2 (13:41→22:41)
--- NOTE | 2017-11-24 13:51 | PC.NURSE ---
Day Shift Note Epidural stopped and capped at [address] Hurt[address]. Dilaudid LIVE GAMES DEALER initiated at this time as well (0.2). Pt instructed on LIVE GAMES DEALER use and acknowledged understanding. Pt reports pain at acceptable level this afternoon (-07/03). Epidural discontinued at [address] Tse. Catheter tip intact, pt tolerated well. Walking in halls SBA w/ FWW, steady on feet. Dressing removed by Dr. Tse and is open to air at this time. No leaking from incision noted, meek intact. Currently sitting up in chair. Call light within reach.
--- NOTE | 2017-11-24 16:46 | P.PN_ITS ---
Subjective Date Patient Seen: 11/24/17 Time Patient Seen: 10:24 Interval history: Improving after laparotomy with short segment small bowel resection for bowel obstruction. Feeling better every day. NGT has been clamped since yesterday afternoon. Mccoy catheter is draining clear yellow fluid. Epidural has been turned off and patient is tolerating it well. She has a Dilaudid CENTRAL STERILE SUPPLY TECHNICIAN now and has used it only once. Exam Vital Signs (past 8 hours): - 11/24/17 12:02 11/24/17 15:50 Temperature 97.3 F L 98.3 F Pulse Rate 63 52 L Respiratory Rate 18 18 Blood Pressure 152/79 H 134/54 H Pulse Oximetry 94 93 Oxygen Delivery Method Room Air Oxygen Flow Rate 0 Narrative Exam Narrative: Lungs: clear bilaterally CV: RRR Abd: soft, wounds are clean and dry and there is no evidence of continued oozing. Minimal drainage on the dressing. No erythema or drainage. Active bowel sounds. Objective Labs Result Diagrams: 11/24/17 04:45 11/24/17 04:45 Labs: Laboratory Results - last 24 hr 11/24/17 11/24/17 04:45 04:45 WBC 6.6 RBC 3.41 L Hgb 10.1 L Hct 30.5 L MCV 89.4 MCH 29.5 MCHC 33.0 RDW 13.8 Plt Count 154 Neut % (Auto) 60.1 Lymph % (Auto) 23.2 L Dixon % (Auto) 9.4 Eos % (Auto) 6.7 H Baso % (Auto) 0.6 Neut # (Auto) 4000 Sodium 138 Potassium 4.3 Chloride 102 Carbon Dioxide 29 BUN 8 Creatinine 0.70 Estimated GFR > 60.0 BUN/Creatinine Ratio 11.4 Glucose 138 H Calcium 8.0 L Assessment & Plan Plan: Assessment/Plan Narrative: 1. Remove NGT 2. Remove Epidural and then mccoy catheter later this afternoon 3. OK to shower and pat the wound dry Quality VTE Deep Vein Thrombosis/Pulmonary Embolism Present on Admission: No
--- NOTE | 2017-11-24 18:45 | PC.NURSE ---
1845- Patient to move to room 217. Report given to Justine WU. Patient is aware of her transfer. Stable
[2017-11-25] MEDS: DEXTROSE 5%-0.45NS W/KCL 40MEQ 1,000 ML 84 MEQ IV (00:27)
[2017-11-25] MEDS: INSULIN ASPART 100 UNIT/ML INSULN PEN SUBCUT ×2 (01:05→08:17)
[2017-11-25 06:05] VITALS: BP 147/70; PULSE 62; RESP 18; TEMP 36.4; O2SAT 97
[2017-11-25] MEDS: HYDROMORPHONE PCA 6 MG/30 ML PCA.VIAL IV (06:19)
--- NOTE | 2017-11-25 06:41 | PC.NURSE ---
Pt is AxOx3, resting comfortably. Positive for Flatus, No BM yet. NPO except ice chips Dilaudid KILN TENDER pump running, patient used 0.4mg for the shift, reporting no pain. IVF running as ordered. Truman to abdomen are clean, dry, and intact. No dressing present, open to air. Well Approximated. No drainage noted. Fingerstick checked and within normal range. No signs of hypoglycemia. SCD's bilaterally on. 1x assist to bathroom, No problems voiding.
[2017-11-25 07:55] VITALS: BP 146/57; PULSE 63; RESP 16; TEMP 36.6; O2SAT 94
[2017-11-25] MEDS: PANTOPRAZOLE 40 MG VIAL IV (08:18)
[2017-11-25] MEDS: ENOXAPARIN 40 MG/0.4 ML SYRINGE SUBCUT (08:18)
--- NOTE | 2017-11-25 08:20 | PM.PN.1 ---
Subjective Date Patient Seen: 11/25/17 Time Patient Seen: 08:21 Interval history: Denies pain. She actually only used her Dilaudid MEDICAL RECORDS TECHNICIAN twice in the last 12-14 hours. Denies nausea or vomiting. Passing flatus. No bowel movement as yet. Passing urine without difficulty following removal of the Perez catheter. No subjective fever or chills. Ambulating without difficulty. Showered yesterday. Feels much less distended. Exam Vital Signs (past 8 hours): - 11/25/17 06:05 Temperature 97.5 F L Pulse Rate 62 Respiratory Rate 18 Blood Pressure 147/70 H Pulse Oximetry 97 Oxygen Delivery Method Room Air Oxygen Flow Rate 0 Narrative Exam Narrative: Well-nourished well-developed elderly female sitting comfortably in bedside chair. Alert oriented x3. Chest clear to auscultation bilaterally without crackles or wheezes. Regular rate and rhythm. No murmurs. Abdomen is soft and much less distended. She is not tympanitic today. Incision is clean, dry, and intact without ecchymoses or erythema. No drainage or bleeding. She is minimally tender to palpation. No guarding or rebound. She has a few active bowel sounds. Extremities show no clubbing or cyanosis Objective Labs Result Diagrams: 11/24/17 04:45 11/24/17 04:45 Labs: No new laboratory or radiographic studies reviewed today. Assessment & Plan Plan: Assessment/Plan Narrative: 77-year-old female now postoperative day 5 from laparotomy with lysis of adhesions and partial small-bowel resection who is overall doing well. She is beginning to have some return of bowel function. We will assist bowel function today and place her on a bowel regimen. Allow clear liquids with no concentrated carbohydrates. Continue sliding scale insulin until we can restart her usual home medications, possibly tomorrow. If she tolerates clear liquids today and then would advance diet as tolerated to diabetic regimen. Discontinue the IV fluids and MEDICAL RECORDS TECHNICIAN. Convert oral analgesia. Continue to ambulate aggressively. I suspected if she continues to do this well she may be able to discharge home in the next 2 days or so. I discussed this with her. All questions were answered to her satisfaction, and she voiced understanding. Orders were written. Quality VTE Deep Vein Thrombosis/Pulmonary Embolism Present on Admission: No
--- NOTE | 2017-11-25 08:24 | P.PN_ITS ---
Subjective Date Patient Seen: 11/25/17 Time Patient Seen: 08:21 Interval history: Denies pain. She actually only used her Dilaudid ATTENDANT CAMPGROUND twice in the last 12-14 hours. Denies nausea or vomiting. Passing flatus. No bowel movement as yet. Passing urine without difficulty following removal of the Perez catheter. No subjective fever or chills. Ambulating without difficulty. Showered yesterday. Feels much less distended. Exam Vital Signs (past 8 hours): - 11/25/17 06:05 Temperature 97.5 F L Pulse Rate 62 Respiratory Rate 18 Blood Pressure 147/70 H Pulse Oximetry 97 Oxygen Delivery Method Room Air Oxygen Flow Rate 0 Narrative Exam Narrative: Well-nourished well-developed elderly female sitting comfortably in bedside chair. Alert oriented x3. Chest clear to auscultation bilaterally without crackles or wheezes. Regular rate and rhythm. No murmurs. Abdomen is soft and much less distended. She is not tympanitic today. Incision is clean, dry, and intact without ecchymoses or erythema. No drainage or bleeding. She is minimally tender to palpation. No guarding or rebound. She has a few active bowel sounds. Extremities show no clubbing or cyanosis Objective Labs Result Diagrams: 11/24/17 04:45 11/24/17 04:45 Labs: No new laboratory or radiographic studies reviewed today. Assessment & Plan Plan: Assessment/Plan Narrative: 77-year-old female now postoperative day 5 from laparotomy with lysis of adhesions and partial small-bowel resection who is overall doing well. She is beginning to have some return of bowel function. We will assist bowel function today and place her on a bowel regimen. Allow clear liquids with no concentrated carbohydrates. Continue sliding scale insulin until we can restart her usual home medications, possibly tomorrow. If she tolerates clear liquids today and then would advance diet as tolerated to diabetic regimen. Discontinue the IV fluids and ATTENDANT CAMPGROUND. Convert oral analgesia. Continue to ambulate aggressively. I suspected if she continues to do this well she may be able to discharge home in the next 2 days or so. I discussed this with her. All questions were answered to her satisfaction, and she voiced understanding. Orders were written. Quality VTE Deep Vein Thrombosis/Pulmonary Embolism Present on Admission: No
[2017-11-25] MEDS: MAGNESIUM HYDROXIDE 30 ML UDC PO (10:11)
[2017-11-25] MEDS: DOCUSATE 100 MG CAPSULE PO ×2 (10:11→20:39)
[2017-11-25 12:05] VITALS: BP 140/89; PULSE 59; RESP 16; TEMP 36.4; O2SAT 93
[2017-11-25 15:20] VITALS: BP 144/67; PULSE 57; RESP 16; TEMP 37.1; O2SAT 97
[2017-11-25 19:40] VITALS: BP 159/69; PULSE 63; RESP 17; TEMP 36.9; O2SAT 96
[2017-11-25] MEDS: SENNOSIDES 8.6 MG TABLET PO (20:39)
--- NOTE | 2017-11-25 20:54 | PC.NURSE ---
Olga Lidia shift note: Awake and alert, pleasant and cooperative. No c/o pain, nausea or vomiting. Tolerating clear liquid diet, no insulin coverage required this shift. Midline incision to mid abdomen, with well approximate edges/meek open to air, no abnormal drainage or bleeding. x3 soft/formed small BM. Up out of bed with 1 person assist. Voiding. VSS and afebrile.
[2017-11-25 23:59] VITALS: BP 159/54; PULSE 64; RESP 16; TEMP 36.9; O2SAT 96
[2017-11-26 06:00] VITALS: BP 145/67; PULSE 66; RESP 16; TEMP 36.7; O2SAT 97
--- NOTE | 2017-11-26 06:02 | PC.NURSE ---
Pt is AxOx3. No complaints of pain. Sutures to abdomen are clean, dry, and intact; open to air; well approximated; no drainage. Ambulates to bathroom with a standby assist. No nausea/vomiting. Tolerating Clear liquids. Vital signs stable. Small bowel movement this morning. Call chisholm within reach
[2017-11-26 07:30] VITALS: BP 151/71; PULSE 64; RESP 16; TEMP 36.7; O2SAT 97
[2017-11-26] MEDS: ENOXAPARIN 40 MG/0.4 ML SYRINGE SUBCUT (08:20)
[2017-11-26] MEDS: DOCUSATE 100 MG CAPSULE PO (08:21)
[2017-11-26] MEDS: PANTOPRAZOLE 40 MG VIAL IV (08:21)
[2017-11-26 12:00] VITALS: BP 150/70; PULSE 100; RESP 16; TEMP 36.3; O2SAT 100
--- NOTE | 2017-11-26 13:25 | PM.PN.1 ---
Subjective Date Patient Seen: 11/26/17 Time Patient Seen: 13:25 Interval history: Feeling pretty well today. Has tolerated clear liquids without difficulty. Denies any nausea. Continues to pass flatus. Has not been out of bed except to walk around in her room or to the bathroom. Exam Vital Signs (past 8 hours): - 11/26/17 06:00 11/26/17 07:30 11/26/17 12:00 Temperature 98.1 F 98.0 F 97.4 F L Pulse Rate 66 64 100 H Respiratory Rate 16 16 16 Blood Pressure 145/67 H 151/71 H 150/70 H Pulse Oximetry 97 97 100 Oxygen Delivery Method Room Air Oxygen Flow Rate 0 Narrative Exam Narrative: Lungs: Clear bilaterally no crackles Heart: Regular rate and rhythm Abdomen: Soft, incision is clean dry and intact with clips in place. No erythema or drainage. Active bowel sounds. Appropriate tenderness. Extremities: No edema Objective Labs Result Diagrams: 11/24/17 04:45 11/24/17 04:45 Assessment & Plan Plan: Assessment/Plan Narrative: 1. She must ambulate today in the halls 2. Change her to a diabetic diet 3. Discharge home in the next day or so if she continues to do well. Quality VTE Deep Vein Thrombosis/Pulmonary Embolism Present on Admission: No
[2017-11-26 15:20] VITALS: BP 151/78; PULSE 63; RESP 17; TEMP 37.2; O2SAT 96
[2017-11-26 19:30] VITALS: BP 125/61; PULSE 71; RESP 16; TEMP 37; O2SAT 95
[2017-11-26 23:38] VITALS: BP 157/73; PULSE 68; RESP 16; TEMP 36.6; O2SAT 94
[2017-11-27 05:56] VITALS: BP 157/70; PULSE 63; RESP 16; TEMP 37.1; O2SAT 97
[2017-11-27 08:00] VITALS: BP 149/74; PULSE 60; RESP 16; TEMP 37.1; O2SAT 96
[2017-11-27] MEDS: ENOXAPARIN 40 MG/0.4 ML SYRINGE SUBCUT (08:39)
--- NOTE | 2017-11-27 08:51 | P.DS_ITS ---
History of Present Illness Date Patient Seen: 11/27/17 Time Patient Seen: 08:48 Chief complaint: BACK AND STOMACH PAIN Narrative: Very pleasant 77-year-old lady presented to on the day of admission with abdominal pain and nausea and vomiting. She was diagnosed with small- bowel obstruction and admitted for care. Discharge Providers Date of admission: 11/20/17 03:48 Primary care physician: Riley Espinoza MD Consults: 11/20/17 16:36 Consult to Discharge Planning Routine Comment: Discharge provider: Yue Tse MD Summary Discharge Diagnosis: Small-bowel obstruction Hospital Course: Mrs. Russell was admitted on November 19 with the diagnosis of small-bowel obstruction. The problem was initially managed conservatively but when her symptoms became more concerning, she was taken to the operating room on November 20 for exploratory laparotomy with a segmental resection of the small bowel. Pathology revealed an ulceration but no ischemia or malignancy. Her postoperative course was predictable in fairly smooth. Today she is eating a regular diet, she has not been taking pain meds for several days, and she is able to walk carefully but unassisted. She is ready for discharge to her home in the care of her family. Status at Discharge Cognitive/behavioral status at discharge: Within normal limits Functional status at discharge: independent ambulation Time Spent with Patient Less than 30 minutes Exam Vital Signs (past 8 hours): - 11/27/17 05:56 Temperature 98.7 F Pulse Rate 63 Respiratory Rate 16 Blood Pressure 157/70 H Pulse Oximetry 97 Oxygen Delivery Method Room Air Oxygen Flow Rate 0 Narrative Exam Narrative: Well-nourished and well-developed elderly lady in no distress. She reports she slept well last night HEENT: Normocephalic and atraumatic, pupils equal round and reactive to light accommodation with anicteric sclera Lungs: Clear to auscultation bilaterally Heart: Regular rate and rhythm Abdomen: Soft, lower midline incision is well approximated without erythema or drainage, active bowel sounds. Extremities: Warm and well perfused. Objective Labs Result Diagrams: 11/24/17 04:45 11/24/17 04:45 Discharge Plan Discharge Plan Patient Disposition: Home, Self-Care Provider Discharge Instructions Diet: Diet as Tolerated Activity: Do not lift more than 5 pounds for at least 1 month. Increase activity only after discussion with your surgeon Cold/Heat Therapy: As desired Wound Care Report to your healthcare provider any signs of infection, such as:: chills, fever, night sweats, increased pain and unusual drainage Discharge Data Primary Care Provider: Riley Espinoza Attending Provider: Stan Dumont Admit Date/Time: 11/20/17 03:48 Quality VTE Deep Vein Thrombosis/Pulmonary Embolism Present on Admission: No
--- NOTE | 2017-11-27 12:12 | PC.NURSE ---
Pt given dc instructions on how to care for wound, no scripts required. Dtr will make appt on Wednesday. Pt taken by wheelchair to ER entrance.
--- NOTE | 2017-11-27 14:04 | CM.DPNOTE ---
DC Note: DC order in place, pt eager to return home and feeling relieved that there was some conclusion to 9 hard months of pain, discomfort, etc. Pt's dtr in the room with her and explains she feels confident about pt returning home. ELSIE was reviewed and signed by pt. Home w/family to assist prn. MARTY
== END 2017-11-27 11:00 | disposition home or self-care (01) | DRG 330 ==
LOC: ED 11-20 01:22 → AC 11-20 08:24 → ICU 11-21 14:35 → AC 11-22 10:58 → ICU 11-22 10:58 → AC 11-24 19:12
PROVIDERS: Surgery; Admitting Provider Surgery; Emergency Provider Emergency Medicine; Family Provider Family Medicine; PCP Family Medicine; Visit Provider Surgery
PROC: 0DNW0ZZ Release Peritoneum, Open Approach (ICD-10-PCS; CPT 49000; principal; 2017-11-20 15:45)
DX: K56.50 Intestinal adhesions [bands], unspecified as to partial versus complete obstruction (principal); K63.3 Ulcer of intestine; I25.10 Atherosclerotic heart disease of native coronary artery without angina pectoris; E78.5 Hyperlipidemia, unspecified; E11.40 Type 2 diabetes mellitus with diabetic neuropathy, unspecified
CPT/HCPCS: 36415; 36591; 36592; 43753; 74018; 74022; 74177; 80048; 80053; 82962; 83690; 84484; 85025; 86850; 86900; 86901; 87797; 88307; 93005; 94762; 99283; C9113; J1170; J1650; J2250; J2405; J2704; J3010; Q9967

== ENCOUNTER → 2018-03-29 11:30 | Outpatient (CLI) | payer MEDICARE, OTHER, SELFPAY ==
[2017-11-20 03:57] VITALS: BMI 29.2
[2018-03-29 12:16] LABS: Hemoglobin A1C% w Est Avg Glu 7.1 % (4.0-6.0)
[2018-03-29 12:24] LABS: Alanine Aminotransferase 39 IU/L (9-52); Albumin 4.4 g/dL (3.5-5.0); Albumin Globulin Ratio 1.6 (1.0-2.8); Alkaline Phosphatase 65 U/L (38-126); Aspartate Aminotransferase 33 IU/L (14-36); Bilirubin Total 0.3 mg/dL (0.2-1.3); Blood Urea Nitrogen 33 mg/dL (7-17); Calcium 9.3 mg/dL (8.4-10.2); Carbon Dioxide 26 mmol/L (22-32); Chloride 104 mmol/L (98-107); Cholesterol 152 mg/dL (140-199); Estimated Glomerular Filt Rate 53.5 mL/min (>60); Globulin 2.8 g/dL (1.7-4.1); Glucose 119 mg/dL (80-110); HDL Cholesterol 44 mg/dL (40-60); HEMOLYSIS < 15 (0-50); LDL Cholesterol Calculated 85 mg/dL (<100); Potassium 4.9 mmol/L (3.4-5.1); Sodium 143 mmol/L (137-145); Total Protein 7.2 g/dL (6.3-8.2); Triglycerides 113 mg/dL (35-150)
== END ==
PROVIDERS: Family Provider Internal Medicine Cardiovascular Disease; Visit Provider Internal Medicine
DX: E11.9 Type 2 diabetes mellitus without complications (principal); E78.2 Mixed hyperlipidemia
CPT/HCPCS: 36415; 80053; 80061; 83036

== ENCOUNTER → 2018-07-29 10:58 | Outpatient (CLI) | payer MEDICARE, OTHER, SELFPAY ==
[2017-11-20 03:57] VITALS: BMI 29.2
[2018-07-29 11:36] LABS: Alanine Aminotransferase 36 IU/L (9-52); Albumin 4.3 g/dL (3.5-5.0); Albumin Globulin Ratio 1.3 (1.0-2.8); Alkaline Phosphatase 69 U/L (38-126); Aspartate Aminotransferase 29 IU/L (14-36); Bilirubin Total 0.2 mg/dL (0.2-1.3); Blood Urea Nitrogen 31 mg/dL (7-17); Calcium 9.4 mg/dL (8.4-10.2); Carbon Dioxide 26 mmol/L (22-32); Chloride 105 mmol/L (98-107); Cholesterol 147 mg/dL (140-199); Estimated Glomerular Filt Rate 53.5 mL/min (>60); Globulin 3.2 g/dL (1.7-4.1); Glucose 137 mg/dL (80-110); HDL Cholesterol 44 mg/dL (40-60); HEMOLYSIS < 15 (0-50); LDL Cholesterol Calculated 79 mg/dL (<100); Potassium 5.2 mmol/L (3.4-5.1); Sodium 139 mmol/L (137-145); Total Protein 7.5 g/dL (6.3-8.2); Triglycerides 119 mg/dL (35-150)
== END ==
PROVIDERS: PCP Internal Medicine; Visit Provider Internal Medicine Cardiovascular Disease
DX: E78.2 Mixed hyperlipidemia (principal)
CPT/HCPCS: 36415; 80053; 80061

== ENCOUNTER → 2018-09-28 12:04 | Outpatient (CLI) | payer MEDICARE, OTHER, SELFPAY ==
[2017-11-20 03:57] VITALS: BMI 29.2
--- NOTE | 2018-09-28 12:09 | DI.RAD.S_ITS ---
PROCEDURE: XR CHEST 2V INDICATIONS: cough TECHNIQUE: 2 views of the chest were acquired. COMPARISON: [facility], , CHEST 1 VIEW, 10/09/2015, 22:56. FINDINGS: Surgical changes and devices: None. Lungs and pleura: Mild streaky opacities in the medial right lower lobe although technically age-indeterminate. No pleural effusions or pneumothorax. Mediastinum: Mediastinal contours are normal. Heart size is normal. Bones and chest wall: Scoliosis and diffuse spondylosis. IMPRESSION: Streaky opacities involving the right medial lower lobe, which could be mild scarring/atelectasis/aspiration. No acute consolidation. Dictated by: Dewey Lilly M.D. on 09/28/2018 at 15:42 Approved by: Dewey Lilly M.D. on 09/28/2018 at 15:59
== END ==
PROVIDERS: PCP Internal Medicine; Visit Provider Nurse Practitioner
DX: R05 Cough (principal)
CPT/HCPCS: 71046

== ENCOUNTER → 2018-10-04 11:50 | Outpatient (CLI) | payer MEDICARE, OTHER, SELFPAY ==
[2017-11-20 03:57] VITALS: BMI 29.2
[2018-10-04 12:43] LABS: Hemoglobin A1C% w Est Avg Glu 7.1 % (4.0-6.0)
[2018-10-04 13:26] LABS: Alanine Aminotransferase 30 IU/L (9-52); Albumin 4.3 g/dL (3.5-5.0); Albumin Globulin Ratio 1.3 (1.0-2.8); Alkaline Phosphatase 82 U/L (38-126); Aspartate Aminotransferase 31 IU/L (14-36); BUN Creatinine Ratio 42.2 (6-22); Bilirubin Total 0.4 mg/dL (0.2-1.3); Blood Urea Nitrogen 38 mg/dL (7-17); Carbon Dioxide 24 mmol/L (22-32); Chloride 104 mmol/L (98-107); Cholesterol 157 mg/dL (140-199); Estimated Glomerular Filt Rate > 60.0 mL/min (>60); Globulin 3.3 g/dL (1.7-4.1); Glucose 135 mg/dL (80-110); HDL Cholesterol 37 mg/dL (40-60); HEMOLYSIS < 15 (0-50); LDL Cholesterol Calculated 96 mg/dL (<100); Sodium 139 mmol/L (137-145); Total Protein 7.6 g/dL (6.3-8.2); Triglycerides 121 mg/dL (35-150)
[2018-10-04 13:30] LABS: Potassium 5.7 mmol/L (3.4-5.1)
[2018-10-04 14:37] LABS: Creatinine Urine Random 177.1 mg/dL
[2018-10-04 14:43] LABS: Microalbumi Creatinin Ratio Ur 7.3 ug/mg CR (<30); Microalbumin Urine Random 1.3 mg/dL (0-1.6)
== END ==
PROVIDERS: PCP Internal Medicine; Visit Provider Internal Medicine
DX: E11.40 Type 2 diabetes mellitus with diabetic neuropathy, unspecified (principal); E11.9 Type 2 diabetes mellitus without complications; E78.2 Mixed hyperlipidemia; I25.10 Atherosclerotic heart disease of native coronary artery without angina pectoris
CPT/HCPCS: 36415; 80053; 80061; 82043; 82570; 83036

== ENCOUNTER → 2018-12-03 09:03 | Outpatient (CLI) | payer MEDICARE, OTHER, SELFPAY ==
[2017-11-20 03:57] VITALS: BMI 29.2
[2018-12-03 10:18] LABS: BUN Creatinine Ratio 27.5 (6-22); Blood Urea Nitrogen 22 mg/dL (7-17); Calcium 9.3 mg/dL (8.4-10.2); Carbon Dioxide 28 mmol/L (22-32); Chloride 105 mmol/L (98-107); Estimated Glomerular Filt Rate > 60.0 mL/min (>60); Glucose 134 mg/dL (80-110); HEMOLYSIS < 15 (0-50); Potassium 4.2 mmol/L (3.4-5.1); Sodium 141 mmol/L (137-145)
== END ==
PROVIDERS: PCP Internal Medicine; Visit Provider Internal Medicine
DX: E11.9 Type 2 diabetes mellitus without complications (principal); E78.2 Mixed hyperlipidemia; I25.5 Ischemic cardiomyopathy
CPT/HCPCS: 36415; 80048

== ENCOUNTER 2018-12-14 22:35 | Inpatient (IN) | payer MEDICARE, OTHER, SELFPAY ==
[2017-11-20 03:57] VITALS: BMI 29.2
[2018-12-14 22:57] VITALS: BP 167/79; PULSE 90; RESP 18; TEMP 36.8; O2SAT 98; BMI 29.5
--- NOTE | 2018-12-14 23:02 | DI.RAD.S_ITS ---
PROCEDURE: XR CHEST 1V INDICATIONS: chest pain TECHNIQUE: One view of the chest was acquired. COMPARISON: [facility], , CHEST 2 VIEW, 08/07/2009, 9:58. [facility], CHEST 1 VIEW, 10/09/2015, 22:56. [facility], , XR CHEST 2V, 09/28/2018, 12:15. FINDINGS: Surgical changes and devices: None. Lungs and pleura: Lungs are clear. No pleural effusions or pneumothorax. Mediastinum: Mediastinal contours appear normal. Heart size is normal. Bones and chest wall: No suspicious bony lesions. Overlying soft tissues appear unremarkable. IMPRESSION: No acute cardiopulmonary disease. Dictated by: Bahman Joshua M.D. on 12/15/2018 at 8:35 Approved by: Bahman Joshua M.D. on 12/15/2018 at 8:36
--- NOTE | 2018-12-14 23:04 | ED_ITS ---
HPI - Back Pain/Injury General Chief Complaint: Back Pain/Injury Stated Complaint: BACK PAIN, HX VA, BOWEL BLOCKAGE Time Seen by Provider: 12/14/18 22:45 Source: patient and family Mode of arrival: ambulatory Limitations: no limitations History of Present Illness HPI Narrative: 78-year-old female nonsmoker with history of cardiac disease and bowel obstruction presents with generalized crampy in worsening abdominal pain with radiation to her back. She has nausea but denies any vomiting. Her pain is worse when she moves improves with rest. She last had a bowel movement earlier today. She states this feels like prior bowel obstructions. She states she cannot find a position of comfort. She has had no fever or chills MD Complaint: other Onset (ago): day(s) Duration: constant Similar Symptoms Previously: Yes Severity: moderate Related Data Home Medications Medication Instructions Recorded Confirmed Glucosamine Sulfate (GLUCOSAMINE) 1,000 mg PO BID #0 02/02/13 12/14/18 [F[place] RED] 350 mg PO QDAY #0 02/02/13 12/14/18 [POMEGRANATE] 250 mg PO BID #0 02/02/13 12/14/18 Previous Rx's Medication Instructions Recorded ASPIRIN (Aspirin EC) 81 mg PO DAILY #90 07/14/12 carvedilol [Coreg] 3.125 mg PO BID #60 tab 02/09/17 albuterol sulfate [Proventil HFA] 2 puff INH Q4HP PRN #1 inh 09/01/17 simvastatin 40 mg tablet 40 mg PO QDAYPM #90 tab 04/05/18 diclofenac sodium 50 mg 50 mg PO QDAY #90 tab 04/18/18 tablet,delayed release Allergies Allergy/AdvReac Type Severity Reaction Status Date / Time lisinopril AdvReac Intermediate cough, Verified 12/06/18 13:48 hyperkalemia Review of Systems Constitutional Denies chills, Denies fever(s), Denies lethargy and Denies weakness Eyes Denies change in vision, Denies eye discharge, Denies irritation and Denies loss of vision ENT Ears, Nose, Mouth, and Throat: Denies change in voice, Denies neck pain and Denies sore throat Cardiovascular Denies chest pain, Denies irregular heart rhythm, Denies lightheadedness, Denies palpitations, Denies dyspnea, Denies dyspnea on exertion and Denies orthopnea Respiratory Denies cough, Denies dyspnea, Denies dyspnea on exertion and Denies wheezing Gastrointestinal Gastrointestinal: Reports abdominal pain, Denies change in bowel habits, Denies diarrhea, Reports nausea and Denies vomiting Genitourinary Denies hematuria, Denies flank pain, Denies urinary incontinence and Denies urinary urgency Musculoskeletal Denies neck pain Integumentary/Breasts Denies pruritus, Denies erythema, Denies rash and Denies wounds Neurologic Denies confusion, Denies loss of vision and Denies weakness Psychiatric Denies anxiety, Denies confusion, Denies depression, Denies homicidal ideation and Denies suicidal ideation Endocrine Denies palpitations Hematologic/Lymphatic Denies easy bruising Allergic/Immunologic Denies wheezing [facility] Medical History Type 2 diabetes mellitus (Chronic 06/30/12) Diabetic neuropathy (Chronic) Ischemic cardiomyopathy (Chronic 2015) Coronary artery disease involving [place] coronary artery of [place] heart without angina pectoris (Chronic 10/2003) Mixed hyperlipidemia (Chronic) Nonrheumatic mitral valve regurgitation (Chronic) VA (myocardial infarction) (Resolved 10/2003) Myocardial infarction (Resolved) Small bowel obstruction (Resolved) Small bowel obstruction (Resolved 2016) Small bowel obstruction (Resolved 11/20/17) Surgical History History of appendectomy (Resolved 1973) History of cholecystectomy (Resolved 1973) History of coronary artery stent placement (Resolved 10/2003) Status post colonoscopy (Resolved 2005) Status post coronary angiogram (Resolved) Status post epidural steroid injection (Resolved 11/20/17) Status post exploratory laparotomy (Resolved 11/20/17) Status post hysterectomy (Resolved 1999) Family History Brother Colorectal cancer Mother CAD (coronary artery disease) Social History marital status: number of children: 5 household members: spouse lives independently: Yes caregiver/support person: No housing: house pets and animals: No education level: high school occupational status: other (Retired) 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 Anything that can be done with hands.) Smoking Status: Never smoker Tobacco: How many years used: 0 quit status: quit date established (Never Started) second hand exposure: No alcohol intake: current substance use type: does not use Exam Narrative Exam Narrative: GENERAL: 78F appears stated age, clearly unwell, rubbing her abdomen. HEAD: Atraumatic. Normocephalic. No temporal or scalp tenderness. EYES: Pupils equal round and reactive. Extraocular motions intact. No scleral icterus. No injection or drainage. ENT: Nose without bleeding, purulent drainage or septal hematoma. Throat without erythema, tonsillar hypertrophy or exudate. Uvula midline. Airway patent. NECK: Trachea midline. No JVD or lymphadenopathy. Supple, nontender, no meningeal signs. CARDIOVASCULAR: Regular rate and rhythm without murmurs, gallops, or rubs. RESPIRATORY: Clear to auscultation. Breath sounds equal bilaterally. No wheezes, rales, or rhonchi. GASTROINTESTINAL: Abdomen soft, generalized tenderness, nondistended. No hepato- splenomegaly, or palpable masses. No guarding. EXTREMITIES: No clubbing, cyanosis, or edema. No joint tenderness, effusion, or edema noted. BACK: Nontender without deformity or crepitance. No flank tenderness. NEURO: AOx3. SKIN: No rash or erythema. Initial Vital Signs Initial Vital Signs: Vital Signs Temperature 98.2 F 12/14/18 22:57 Pulse Rate 90 12/14/18 22:57 Respiratory Rate 18 12/14/18 22:57 Blood Pressure 167/79 H 12/14/18 22:57 Pulse Oximetry 98 12/14/18 22:57 Course Orders Ordered: Albuterol (Ventolin) 2.5 mg INH QCO2QLYE [facility] Last Admin: 12/15/18 21:26 Dose: 2.5 mg Admin: 12/15/18 20:37 Dose: Not Given Carvedilol (Coreg) 3.125 mg PO BID [facility] Last Admin: 12/15/18 21:29 Dose: 3.125 mg Sodium Chloride (Normal Saline 0.9%) 1,000 mls @ 150 mls/hr IV CONT [facility] Last Admin: 12/16/18 00:14 Dose: 150 mls/hr Infusion: 12/15/18 23:33 Dose: 150 mls/hr Admin: 12/15/18 16:52 Dose: 150 mls/hr Infusion: 12/15/18 16:51 Dose: 150 mls/hr Admin: 12/15/18 08:30 Dose: 150 mls/hr Infusion: 12/15/18 08:20 Dose: 0 mls/hr Admin: 12/15/18 01:36 Dose: 150 mls/hr Infusion: 12/15/18 00:49 Dose: 0 mls/hr Infusion: 12/14/18 23:38 Dose: 1,000 mls/hr Admin: 12/14/18 23:28 Dose: 150 mls/hr Ketorolac Tromethamine (Toradol) 15 mg IV Q8H [facility] Stop: 12/20/18 01:00 Last Admin: 12/15/18 20:13 Dose: 15 mg Ondansetron HCl (Zofran) 4 mg IV Q4HR PRN PRN Reason: Nausea And Vomiting Last Admin: 12/14/18 23:31 Dose: 4 mg Discontinued Medications Aspirin (Aspirin Chew) 324 mg PO NOW ONE Stop: 12/14/18 23:03 Last Admin: 12/14/18 23:28 Dose: 324 mg Hydromorphone HCl (Dilaudid) 0.5 mg IV NOW ONE Stop: 12/14/18 23:26 Last Admin: 12/14/18 23:32 Dose: 0.5 mg Sodium Chloride (Normal Saline 0.9%) 500 mls @ 1,000 mls/hr IV BOLUS ONE Stop: 12/14/18 23:54 Last Admin: 12/14/18 23:38 Dose: Not Given Ketorolac Tromethamine (Toradol) 15 mg IV Q8HR [facility] Stop: 12/20/18 05:59 Ketorolac Tromethamine (Toradol) 15 mg IV Q8H ARTEMIO Stop: 12/20/18 01:59 Last Admin: 12/15/18 11:05 Dose: 15 mg Ketorolac Tromethamine (Toradol) 15 mg IV Q8H [facility] Stop: 12/20/18 01:59 Last Admin: 12/15/18 16:52 Dose: Not Given Metoprolol Tartrate (Lopressor) 5 mg IV Q6H [facility] Last Admin: 12/15/18 14:45 Dose: 5 mg Admin: 12/15/18 10:25 Dose: 5 mg Consultations Consultation #1: call to Dr. Cordon, he is happy to accept. Requests NG Vital Signs - 8 hr 12/15/18 21:26 12/15/18 21:42 12/15/18 23:00 Temperature 98.1 F 98.3 F Pulse Rate 71 73 Respiratory Rate 17 16 Blood Pressure 147/72 H 122/53 L Pulse Oximetry 98 96 91 MDM - Back Pain/Injury Lab Data Result diagrams: 12/14/18 23:07 12/14/18 23:07 Lab Results 12/14/18 12/14/18 Range/Units 23:07 23:07 WBC 11.3 H (4.5-11.0) X10^3/uL RBC 4.84 (4.0-5.2) X10^6/uL Hgb 14.2 (12.0-16.0) g/dL Hct 42.8 (36-46) % MCV 88.5 (80-100) fL MCH 29.3 (26-34) PG MCHC 33.1 (30-36) % RDW 14.2 (11.6-14.8) % Plt Count 239 (150-400) X10^3/uL Neut % (Auto) 77.0 H (50-75) % Lymph % (Auto) 13.6 L (25-40) % [place] % (Auto) 7.5 (3-14) % Eos % (Auto) 1.1 L (2-4) % Baso % (Auto) 0.8 (0-2) % Neut # (Auto) 8700 H (9167-4641) /uL Lymph # (Auto) 1500 (6416-6520) /uL [place] # (Auto) 900 (0-900) /uL Eos # (Auto) 100 (0-450) /uL Baso # (Auto) 100 (0-100) /uL Sodium 140 (137-145) mmol/L Potassium 4.0 (3.4-5.1) mmol/L Chloride 105 (98-107) mmol/L Carbon Dioxide 25 (22-32) mmol/L BUN 20 H (7-17) mg/dL Creatinine 0.80 (0.52-1.04) mg/dL Estimated GFR > 60.0 (>60) mL/min BUN/Creatinine Ratio 25.0 H (6-22) Glucose 182 H (80-110) mg/dL Calcium 9.2 (8.4-10.2) mg/dL Total Bilirubin 0.5 (0.2-1.3) mg/dL AST 37 H (14-36) IU/L ALT 34 (9-52) IU/L Alkaline Phosphatase 81 (38-126) U/L Total Creatine Kinase 86 (30-135) U/L CK-MB (CK-2) TNP CK-MB (CK-2) Rel Index TNP Troponin I < 0.012 (0.01-0.034) ng/mL B-Natriuretic Peptide < 100 (<100) Total Protein 7.4 (6.3-8.2) g/dL Albumin 4.2 (3.5-5.0) g/dL Globulin 3.2 (1.7-4.1) g/dL Albumin/Globulin Ratio 1.3 (1.0-2.8) Lipase 98 (23-300) U/L Point of Care Testing Glucose POC [address] scan - abdomen: Radiologist's impression: [address] [address] [address] Scan Report Signed Patient: Vilma Russell JMR#: [id number] : 9Acct:[id number] Age/Sex: 78 / FDate of Service: 12/14/18 Loc: MF337-8 Accession Number: [id number] Procedure: CT abdomen pelvis w con Ordering Provider: Barney Moore D.O. PROCEDURE: CT ABDOMEN PELVIS W CON INDICATIONS: severe abdominal pain TECHNIQUE: After the administration of intravenous contrast, 5 mm thick sections acquired from the diaphragm to the symphysis. 5 mm coronal and sagittal reformats were acquired. For radiation dose reduction, the following was used: automated exposure control, adjustment of mA and/or kV according to patient size. COMPARISON: [facility], CT, ABDOMEN/PELVIS WITH CONTRAST, 07/19/2017, 10:36. [facility], CT, CT ABDOMEN PELVIS W CON, 11/20/2017, 0:52. FINDINGS: Image quality: Excellent. ABDOMEN: Lung bases: There is a cluster of groundglass nodules in the right lower lobe measuring up to 1 cm. A 7 mm subpleural nodule seen in the left lower lobe Heart size is normal. Solid organs: Liver is normal in size and enhancement. Gallbladder is surgically absent. Mild intrahepatic biliary dilation. Common bile duct is prominent measuring 9 mm. Pancreas enhances normally. Spleen is normal in size and enhancement. No adrenal nodules. Kidneys demonstrate normal size and enhancement, without hydronephrosis. Peritoneum and bowel: There is a surgical suture related to small bowel anastomosis in the lower abdomen at midline. Proximally, stomach and proximal small intestine are dilated and filled with fluid. Distally, the small bowel loops are decompressed. The findings are consistent with small obstruction. A small amount of free fluid is present. No free air. There are scattered colonic diverticula. Nodes and vessels: No retroperitoneal or mesenteric adenopathy by size criteria. Aorta and inferior vena cava are normal in size. Miscellaneous: No ventral hernias. PELVIS: Genitourinary: Bladder wall thickness is normal. Uterus is absent consistent with hysterectomy. Ovaries are unremarkable. There is a small amount of free fluid in pelvis. Miscellaneous: No inguinal hernias or adenopathy. Bones: Scoliosis and degenerative changes in lumbar spine. No vertebral body compression fractures. IMPRESSION: 1. Moderately severe small bowel obstruction. The transitional point is in the mid abdomen at the surgical anastomosis. 2. Diverticulosis without acute diverticulitis. 3. There is mild intrahepatic and extrahepatic biliary dilation, likely related to cholecystectomy. Please correlate with serum bilirubin. 4. A cluster of groundglass nodules in the right lower lobe and a 7 mm nodule subpleural in the left lung base. Recommend CT followup (please see enclosed recommendation) Fleischner Society criteria for SUB-SOLID lung nodule followup. Solitary pure ground-glass nodules5 mm or lessNo followup needed. >5 mm3 mo follow-up CT to confirm persistence. Then annual CT for 3 years. Part-solid nodules3 mo follow-up CT to confirm persistence. If persistent with solid component <5 mm, annual CT for at least 3 years. If solid component is 5 mm or more, biopsy or surgical resection. Consider PET-CT for lesions > 10 mm. Multiple sub-solid nodulesPure ground glass nodules [address] at 2 and 4 years. Pure ground glass nodules >5 mm without dominant lesion. [address] to confirm persistence, then annual followup CT for at least 3 years. Dominant nodule(s) with part-solid or solid component. [address] to confirm persistence. If persistent, consider biopsy or surgical resection, sadia if lesions have >5 mm solid component. No significant discrepancy with the regional business manager radiology preliminary report. Dictated by: Bahman Joshua M.D. on 12/15/2018 at 8:24 Approved by: Bahman Joshua M.D. on 12/15/2018 at 8:33 Discharge Plan Departure Patient Disposition: Admitted As Inpatient Clinical Impression: Partial obstruction of small intestine Discharge Date/Time: 12/15/18 01:13 Interventions: ED Discharge Assessment Last Done: 12/15/18 01:04 Admit Date/Time: 12/15/18 00:42 Admit Provider: Fabien Cordon
[2018-12-14 23:16] VITALS: BP 161/77; PULSE 76; RESP 15; O2SAT 96
[2018-12-14 23:17] LABS: Add Manual Diff / Slide Review NO; Basophils Absolute Auto 100 /uL (0-100); Basophils Percent Auto 0.8 % (0-2); Eosinophils Absolute Auto 100 /uL (0-450); Eosinophils Percent Auto 1.1 % (2-4); Hematocrit 42.8 % (36-46); Hemoglobin 14.2 g/dL (12.0-16.0); Lymphocytes Absolute Auto 1500 /uL (1100-4500); Lymphocytes Percent Auto 13.6 % (25-40); Mean Corpuscular HGB Conc 33.1 % (30-36); Mean Corpuscular Hemoglobin 29.3 PG (26-34); Mean Corpuscular Volume 88.5 fL (80-100); Monocytes Absolute Auto 900 /uL (0-900); Monocytes Percent Auto 7.5 % (3-14); Neutrophils Absolute Auto 8700 /uL (1500-7000); Platelet Count 239 X10^3/uL (150-400); Red Blood Cell Count 4.84 X10^6/uL (4.0-5.2); Red Cell Distribution Width 14.2 % (11.6-14.8); White Blood Cell Count 11.3 X10^3/uL (4.5-11.0)
[2018-12-14 23:24] LABS: Alanine Aminotransferase 34 IU/L (9-52); Albumin 4.2 g/dL (3.5-5.0); Albumin Globulin Ratio 1.3 (1.0-2.8); Alkaline Phosphatase 81 U/L (38-126); Aspartate Aminotransferase 37 IU/L (14-36); Bilirubin Total 0.5 mg/dL (0.2-1.3); Blood Urea Nitrogen 20 mg/dL (7-17); Calcium 9.2 mg/dL (8.4-10.2); Carbon Dioxide 25 mmol/L (22-32); Chloride 105 mmol/L (98-107); Creatine Kinase 86 U/L (30-135); Estimated Glomerular Filt Rate > 60.0 mL/min (>60); Globulin 3.2 g/dL (1.7-4.1); Glucose 182 mg/dL (80-110); HEMOLYSIS < 15 (0-50); Lipase 98 U/L (23-300); Sodium 140 mmol/L (137-145); Total Protein 7.4 g/dL (6.3-8.2)
--- NOTE | 2018-12-14 23:26 | DI.CT.S_ITS ---
PROCEDURE: CT ABDOMEN PELVIS W CON INDICATIONS: severe abdominal pain TECHNIQUE: After the administration of intravenous contrast, 5 mm thick sections acquired from the diaphragm to the symphysis. 5 mm coronal and sagittal reformats were acquired. For radiation dose reduction, the following was used: automated exposure control, adjustment of mA and/or kV according to patient size. COMPARISON: [facility], CT, ABDOMEN/PELVIS WITH CONTRAST, 07/19/2017, 10:36. [facility], CT, CT ABDOMEN PELVIS W CON, 11/20/2017, 0:52. FINDINGS: Image quality: Excellent. ABDOMEN: Lung bases: There is a cluster of groundglass nodules in the right lower lobe measuring up to 1 cm. A 7 mm subpleural nodule seen in the left lower lobe Heart size is normal. Solid organs: Liver is normal in size and enhancement. Gallbladder is surgically absent. Mild intrahepatic biliary dilation. Common bile duct is prominent measuring 9 mm. Pancreas enhances normally. Spleen is normal in size and enhancement. No adrenal nodules. Kidneys demonstrate normal size and enhancement, without hydronephrosis. Peritoneum and bowel: There is a surgical suture related to small bowel anastomosis in the lower abdomen at midline. Proximally, stomach and proximal small intestine are dilated and filled with fluid. Distally, the small bowel loops are decompressed. The findings are consistent with small obstruction. A small amount of free fluid is present. No free air. There are scattered colonic diverticula. Nodes and vessels: No retroperitoneal or mesenteric adenopathy by size criteria. Aorta and inferior vena cava are normal in size. Miscellaneous: No ventral hernias. PELVIS: Genitourinary: Bladder wall thickness is normal. Uterus is absent consistent with hysterectomy. Ovaries are unremarkable. There is a small amount of free fluid in pelvis. Miscellaneous: No inguinal hernias or adenopathy. Bones: Scoliosis and degenerative changes in lumbar spine. No vertebral body compression fractures. IMPRESSION: 1. Moderately severe small bowel obstruction. The transitional point is in the mid abdomen at the surgical anastomosis. 2. Diverticulosis without acute diverticulitis. 3. There is mild intrahepatic and extrahepatic biliary dilation, likely related to cholecystectomy. Please correlate with serum bilirubin. 4. A cluster of groundglass nodules in the right lower lobe and a 7 mm nodule subpleural in the left lung base. Recommend CT followup (please see enclosed recommendation) Fleischner Society criteria for SUB-SOLID lung nodule followup. Solitary pure ground-glass nodules5 mm or lessNo followup needed. >5 mm3 mo follow-up CT to confirm persistence. Then annual CT for 3 years. Part-solid nodules3 mo follow-up CT to confirm persistence. If persistent with solid component <5 mm, annual CT for at least 3 years. If solid component is 5 mm or more, biopsy or surgical resection. Consider PET-CT for lesions > 10 mm. Multiple sub-solid nodulesPure ground glass nodules [address] at 2 and 4 years. Pure ground glass nodules >5 mm without dominant lesion. [address] to confirm persistence, then annual followup CT for at least 3 years. Dominant nodule(s) with part-solid or solid component. [address] to confirm persistence. If persistent, consider biopsy or surgical resection, sadia if lesions have >5 mm solid component. No significant discrepancy with the hourly shift radiology preliminary report. Dictated by: Bahman Joshua M.D. on 12/15/2018 at 8:24 Approved by: Bahman Joshua M.D. on 12/15/2018 at 8:33
[2018-12-14] MEDS: SODIUM CHLORIDE 0.9% 1,000 ML 150 ML IV (23:28)
[2018-12-14] MEDS: ASPIRIN 81 MG TAB 324 MG PO (23:28)
[2018-12-14] MEDS: ONDANSETRON 4 MG/2 ML INJ IV (23:31)
[2018-12-14] MEDS: HYDROMORPHONE 0.5 MG INJ IV (23:32)
[2018-12-14 23:36] LABS: Troponin I < 0.012 ng/mL (0.01-0.034)
[2018-12-14 23:37] LABS: B Type Natriuretic Peptide < 100 (<100)
[2018-12-15] VITALS (13 sets, daily range): BP systolic 122–152; BP diastolic 53–82; PULSE 64–85; RESP 9–17; TEMP 36.4–36.9; O2SAT 91–98; BMI 29.5
--- NOTE | 2018-12-15 01:05 | PC.NURSE ---
She has nightgown,cell phone,glasses,2 rings and bracelet with her.
[2018-12-15] MEDS: SODIUM CHLORIDE 0.9% 1,000 ML 150 ML IV ×3 (01:36→16:52)
--- NOTE | 2018-12-15 07:30 | DI.RAD.S_ITS ---
PROCEDURE: FL SMALL BOWEL FOLLOW THROUGH INDICATIONS: SBO. Therapeutic. COMPARISON: [facility], , SMALL BOWEL FOLLOW THROUGH, 08/09/2017, 13:12. FINDINGS: Enteric tube tip terminates in the gastric fundus. Suture material in the right lower quadrant. KUB: Preprocedural bilingual sales consultant film demonstrates minimally prominent loops of small bowel. Stomach is not distended. No suspicious abdominal calcifications. Visualized solid organ contours appear normal. No suspicious bony abnormalities. Excreted contrast in the urinary bladder from recent CT scan. Small bowel: There is rapid transit time of barium through the small bowel. Small bowel loops are within normal limits in size. Gastrografin contrast reaches the right colon at approximately one hour. Mucosal folds are smooth and of normal thickness. No focal stenosis or obvious mass demonstrated. IMPRESSION: Resolved small bowel obstruction. Enteric contrast reaches the colon at 1 hour. The exam was well-tolerated by the patient. Dictated by: Malik Madsen M.D. on 12/15/2018 at 17:03 Approved by: Malik Madsen M.D. on 12/15/2018 at 17:08
--- NOTE | 2018-12-15 07:42 | PM.HP.1 ---
History of Present Illness Date Patient Seen: 12/15/18 Time Patient Seen: 07:19 Chief complaint: BACK PAIN, HX [place], BOWEL BLOCKAGE Narrative: The patient is a woman who has had bowel obstructions in the past. For the last several months she has been having intermittent symptoms of crampy pain across her abdomen. They usually went away and she continued about her business. However yesterday evening they would not go away. They extended across her back. She came to the emergency room was found to have a bowel obstruction was admitted. Last bowel movement was yesterday prior to coming to the hospital. No flatus since then either. 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 Patient History Medical History Type 2 diabetes mellitus (Chronic 06/30/12) Diabetic neuropathy (Chronic) Ischemic cardiomyopathy (Chronic 2015) Coronary artery disease involving [place] coronary artery of [place] heart without angina pectoris (Chronic 10/2003) Mixed hyperlipidemia (Chronic) Nonrheumatic mitral valve regurgitation (Chronic) [place] (myocardial infarction) (Resolved 10/2003) Myocardial infarction (Resolved) Small bowel obstruction (Resolved) Small bowel obstruction (Resolved 2016) Small bowel obstruction (Resolved 11/20/17) Surgical History History of appendectomy (Resolved 1973) History of cholecystectomy (Resolved 1973) History of coronary artery stent placement (Resolved 10/2003) Status post colonoscopy (Resolved 2005) Status post coronary angiogram (Resolved) Status post epidural steroid injection (Resolved 11/20/17) Status post exploratory laparotomy (Resolved 11/20/17) Status post hysterectomy (Resolved 1999) Family History Brother Colorectal cancer Mother CAD (coronary artery disease) Social History marital status: number of children: 5 household members: spouse lives independently: Yes caregiver/support person: No housing: house pets and animals: No education level: high school occupational status: other (Retired) 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 Anything that can be done with hands.) Smoking Status: Never smoker Tobacco: How many years used: 0 quit status: quit date established (Never Started) second hand exposure: No alcohol intake: current substance use type: does not use Family & Social History Family History Brother Colorectal cancer Mother CAD (coronary artery disease) Social History: household members spouse Prior Living Arrangements House lives independently Yes caregiver/support person No Safety & Behavioral: Feels Safe in Current Yes Environment Been Physically Hurt or No Threatened By a Person Suicidal Ideation Description None Suicide Plan Description No Plan Tobacco & Substance use: Smoking Status Never smoker alcohol intake current alcohol intake frequency other Substance Use Type does not use Meds Home Medications Medication Instructions Recorded Confirmed Type ASPIRIN (Aspirin EC) 81 mg PO DAILY #90 07/14/12 12/14/18 Rx Glucosamine Sulfate (GLUCOSAMINE) 1,000 mg PO BID #0 02/02/13 12/14/18 History [[place] RED] 350 mg PO QDAY #0 02/02/13 12/14/18 History [POMEGRANATE] 250 mg PO BID #0 02/02/13 12/14/18 History carvedilol [Coreg] 3.125 mg PO BID #60 tab 02/09/17 12/14/18 Rx albuterol sulfate [Proventil HFA] 2 puff INH Q4HP PRN #1 inh 09/01/17 12/14/18 Rx simvastatin 40 mg tablet 40 mg PO QDAYPM #90 tab 04/05/18 12/14/18 Rx diclofenac sodium 50 mg 50 mg PO QDAY #90 tab 04/18/18 12/14/18 Rx tablet,delayed release Allergies Allergy/AdvReac Type Severity Reaction Status Date / Time lisinopril AdvReac Intermediate cough, Verified 12/06/18 13:48 hyperkalemia Review of Systems Review of Systems Patient denies double vision pain arise cough cold. Denies chest pain she. She has had a stent in the distant past. Does have known cardiac issues. No black or bloody bowel movements. No seizures or blackouts. When no unusual bruising or bleeding. Exam Vital Signs (past 8 hours): - 12/15/18 00:40 12/15/18 01:27 12/15/18 05:51 Temperature 97.6 F 98.5 F Pulse Rate 83 85 79 Respiratory Rate 9 L 16 16 Blood Pressure 146/78 H 149/64 H Blood Pressure [Left Arm] 141/82 H Pulse Oximetry 94 94 96 Oxygen Delivery Method Room Air Narrative Exam Narrative: Pleasant cooperative woman in no apparent distress. Eyes are nonicteric. Neck is supple. No nodes neck supraclavicular areas. Lungs are clear to auscultation without rales or rhonchi. Equal percussion heart regular rate and rhythm no murmur gallop no bruit in the neck abdomen is protuberant and soft. No tenderness or guarding at this time. Multiple scars including a subcostal mid abdominal scar noted. No obvious hernias are present. Patient is alert oriented and pleasant. Speech rate and content are appropriate. NG tube is noted but I think it is out a little far. Objective Labs Result Diagrams: 12/14/18 23:07 12/14/18 23:07 Labs: Laboratory Results - last 24 hr 12/14/18 12/14/18 23:07 23:07 WBC 11.3 H RBC 4.84 Hgb 14.2 Hct 42.8 MCV 88.5 MCH 29.3 MCHC 33.1 RDW 14.2 Plt Count 239 Neut % (Auto) 77.0 H Lymph % (Auto) 13.6 L [place] % (Auto) 7.5 Eos % (Auto) 1.1 L Baso % (Auto) 0.8 Neut # (Auto) 8700 H Lymph # (Auto) 1500 [place] # (Auto) 900 Eos # (Auto) 100 Baso # (Auto) 100 Sodium 140 Potassium 4.0 Chloride 105 Carbon Dioxide 25 BUN 20 H Creatinine 0.80 Estimated GFR > 60.0 BUN/Creatinine Ratio 25.0 H Glucose 182 H Calcium 9.2 Total Bilirubin 0.5 AST 37 H ALT 34 Alkaline Phosphatase 81 Total Creatine Kinase 86 CK-MB (CK-2) TNP CK-MB (CK-2) Rel Index TNP Troponin I < 0.012 B-Natriuretic Peptide < 100 Total Protein 7.4 Albumin 4.2 Globulin 3.2 Albumin/Globulin Ratio 1.3 Lipase 98 Assessment & Plan Assessment & Plan narrative: I reviewed the patient's CT scan and report. Also reviewed her chest x-ray. Agree with diagnosis. The stomach was markedly distended with fluid and NG tube has been placed. The patient reports initially 700 cc of fluid was obtained in her fat and belly felt much better. It became much softer. Will continue NG suction but I would like to get a small-bowel follow-through contrast to see not only if it is completely blocked but also for therapeutic reasons as it may open up. I discussed this with the patient. We will continue her cardiac medicines but will give him IV. Will continue her albuterol inhaler treatments as well. Will hold her simvastatin used for elevated cholesterol for now. Quality VTE Deep Vein Thrombosis/Pulmonary Embolism Present on Admission: No
--- NOTE | 2018-12-15 07:48 | P.HP_ITS ---
History of Present Illness Date Patient Seen: 12/15/18 Time Patient Seen: 07:19 Chief complaint: BACK PAIN, HX [place], BOWEL BLOCKAGE Narrative: The patient is a woman who has had bowel obstructions in the past. For the last several months she has been having intermittent symptoms of crampy pain across her abdomen. They usually went away and she continued about her business. However yesterday evening they would not go away. They extended across her back. She came to the emergency room was found to have a bowel obstruction was admitted. Last bowel movement was yesterday prior to coming to the hospital. No flatus since then either. 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 Patient History Medical History Type 2 diabetes mellitus (Chronic 06/30/12) Diabetic neuropathy (Chronic) Ischemic cardiomyopathy (Chronic 2015) Coronary artery disease involving [place] coronary artery of [place] heart without angina pectoris (Chronic 10/2003) Mixed hyperlipidemia (Chronic) Nonrheumatic mitral valve regurgitation (Chronic) [place] (myocardial infarction) (Resolved 10/2003) Myocardial infarction (Resolved) Small bowel obstruction (Resolved) Small bowel obstruction (Resolved 2016) Small bowel obstruction (Resolved 11/20/17) Surgical History History of appendectomy (Resolved 1973) History of cholecystectomy (Resolved 1973) History of coronary artery stent placement (Resolved 10/2003) Status post colonoscopy (Resolved 2005) Status post coronary angiogram (Resolved) Status post epidural steroid injection (Resolved 11/20/17) Status post exploratory laparotomy (Resolved 11/20/17) Status post hysterectomy (Resolved 1999) Family History Brother Colorectal cancer Mother CAD (coronary artery disease) Social History marital status: number of children: 5 household members: spouse lives independently: Yes caregiver/support person: No housing: house pets and animals: No education level: high school occupational status: other (Retired) 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 Anything that can be done with hands.) Smoking Status: Never smoker Tobacco: How many years used: 0 quit status: quit date established (Never Started) second hand exposure: No alcohol intake: current substance use type: does not use Family & Social History Family History Brother Colorectal cancer Mother CAD (coronary artery disease) Social History: household members spouse Prior Living Arrangements House lives independently Yes caregiver/support person No Safety & Behavioral: Feels Safe in Current Yes Environment Been Physically Hurt or No Threatened By a Person Suicidal Ideation Description None Suicide Plan Description No Plan Tobacco & Substance use: Smoking Status Never smoker alcohol intake current alcohol intake frequency other Substance Use Type does not use Meds Home Medications Medication Instructions Recorded Confirmed Type ASPIRIN (Aspirin EC) 81 mg PO DAILY #90 07/14/12 12/14/18 Rx Glucosamine Sulfate (GLUCOSAMINE) 1,000 mg PO BID #0 02/02/13 12/14/18 History [F[place] RED] 350 mg PO QDAY #0 02/02/13 12/14/18 History [POMEGRANATE] 250 mg PO BID #0 02/02/13 12/14/18 History carvedilol [Coreg] 3.125 mg PO BID #60 tab 02/09/17 12/14/18 Rx albuterol sulfate [Proventil HFA] 2 puff INH Q4HP PRN #1 inh 09/01/17 12/14/18 Rx simvastatin 40 mg tablet 40 mg PO QDAYPM #90 tab 04/05/18 12/14/18 Rx diclofenac sodium 50 mg 50 mg PO QDAY #90 tab 04/18/18 12/14/18 Rx tablet,delayed release Allergies Allergy/AdvReac Type Severity Reaction Status Date / Time lisinopril AdvReac Intermediate cough, Verified 12/06/18 13:48 hyperkalemia Review of Systems Review of Systems Patient denies double vision pain arise cough cold. Denies chest pain she. She has had a stent in the distant past. Does have known cardiac issues. No black or bloody bowel movements. No seizures or blackouts. When no unusual bruising or bleeding. Exam Vital Signs (past 8 hours): - 12/15/18 00:40 12/15/18 01:27 12/15/18 05:51 Temperature 97.6 F 98.5 F Pulse Rate 83 85 79 Respiratory Rate 9 L 16 16 Blood Pressure 146/78 H 149/64 H Blood Pressure [Left Arm] 141/82 H Pulse Oximetry 94 94 96 Oxygen Delivery Method Room Air Narrative Exam Narrative: Pleasant cooperative woman in no apparent distress. Eyes are nonicteric. Neck is supple. No nodes neck supraclavicular areas. Lungs are clear to auscultation without rales or rhonchi. Equal percussion heart regular rate and rhythm no murmur gallop no bruit in the neck abdomen is protuberant and soft. No tenderness or guarding at this time. Multiple scars including a subcostal mid abdominal scar noted. No obvious hernias are present. Patient is alert oriented and pleasant. Speech rate and content are appropriate. NG tube is noted but I think it is out a little far. Objective Labs Result Diagrams: 12/14/18 23:07 12/14/18 23:07 Labs: Laboratory Results - last 24 hr 12/14/18 12/14/18 23:07 23:07 WBC 11.3 H RBC 4.84 Hgb 14.2 Hct 42.8 MCV 88.5 MCH 29.3 MCHC 33.1 RDW 14.2 Plt Count 239 Neut % (Auto) 77.0 H Lymph % (Auto) 13.6 L [place] % (Auto) 7.5 Eos % (Auto) 1.1 L Baso % (Auto) 0.8 Neut # (Auto) 8700 H Lymph # (Auto) 1500 [place] # (Auto) 900 Eos # (Auto) 100 Baso # (Auto) 100 Sodium 140 Potassium 4.0 Chloride 105 Carbon Dioxide 25 BUN 20 H Creatinine 0.80 Estimated GFR > 60.0 BUN/Creatinine Ratio 25.0 H Glucose 182 H Calcium 9.2 Total Bilirubin 0.5 AST 37 H ALT 34 Alkaline Phosphatase 81 Total Creatine Kinase 86 CK-MB (CK-2) TNP CK-MB (CK-2) Rel Index TNP Troponin I < 0.012 B-Natriuretic Peptide < 100 Total Protein 7.4 Albumin 4.2 Globulin 3.2 Albumin/Globulin Ratio 1.3 Lipase 98 Assessment & Plan Assessment & Plan narrative: I reviewed the patient's CT scan and report. Also reviewed her chest x-ray. Agree with diagnosis. The stomach was markedly distended with fluid and NG tube has been placed. The patient reports initially 700 cc of fluid was obtained in her fat and belly felt much better. It became much softer. Will continue NG suction but I would like to get a small-bowel fo llow-through contrast to see not only if it is completely blocked but also for therapeutic reasons as it may open up. I discussed this with the patient. We will continue her cardiac medicines but will give him IV. Will continue her albuterol inhaler treatments as well. Will hold her simvastatin used for elevated cholesterol for now. Quality VTE Deep Vein Thrombosis/Pulmonary Embolism Present on Admission: No
--- NOTE | 2018-12-15 08:25 | PC.NURSE ---
Addendum entered by Yamile Dupree R.N. 12/15/18 13:24: patient left with her discharge paperwork in without s/sx's of distress by wc with her ride from [facility] [employer] here to pick her up. escorted by this proposal lead writer. Original Note: Dr Cordon called this am, instructed to advance NG tube 4 inches. This was done and tube was marked in ink at nares. Patient tolerated well. NG returned to LIS, and is Patent and Draining brownish/reddish fluid. Patient is up to recliner at this time. Denies nausea, denies flatus. Abd soft and non-tender. Bowel tones active.
[2018-12-15] MEDS: METOPROLOL TARTRATE 5 MG/5 ML INJ IV ×2 (10:25→14:45)
--- NOTE | 2018-12-15 10:56 | CM.DANOTE ---
DCP: Case received, EMR reviewed and met with patient. Introduced self and role. Was able to meet with patient and obtain baseline health history. DCP assessment completed with information currently available. Patient is a 78 year old female who admitted early this morning to the care of the hospitalist team. PCP: Dr. Ray. Payer: confirmed: Medicare/[employer]. Patient came to the hospital via family vehicle secondary to abdominal discomfort, as well as back pain. Patient holds diagnosis of partial bowel obstruction. She currently has NG tube in place. Met with her in her room. Pleasant. Stated, she has had this before. She also stated, since she has had the NG tube in, she is feeling some what better. Patient resides here in [place], and lives with her , Luis Fernando. She also has a daughter named Marilyn. She is independent, and drives. No DME as well. P: DCP to continue to follow and offer any resources needed. She should be able to go home when she is medically stable. Meghna Mauro RN/Acute Care Registered Nurse
[2018-12-15] MEDS: KETOROLAC 60 MG/2 ML VIAL 15 MG IV (11:05)
--- NOTE | 2018-12-15 13:57 | PC.NURSE ---
Addendum entered by Yamile Dupree R.N. 12/15/18 15:20: patient off of unit for study. Late entry: patient was placed on tele this am for first dose of ivp metoprolol per protocol. NSR at 80 bpm. vs taken prior and after ivp. see documentation on worklist. tolerated well. tele dc'd after 1st dose. Original Note: LATE ENTRY; ADVANCED NG TUBE 4 INCHES PER INSTRUCTION FROM DR. CR THIS AM AT APPROX 0830. RETURNED NG TO LIS, PATENT OF LIGHT BROWNISH/REDDISH DRAINAGE. NO FLATUS, ABD TENDER RUQ AND RLQ. SOFT. BOWEL TONES ACTIVE. FOLLOW THROUGH STUDY WILL BE DONE AT [facility]OX AT 1500.
[2018-12-15] MEDS: KETOROLAC 15 MG/ML VIAL IV (20:13)
[2018-12-15] MEDS: ALBUTEROL 2.5 MG/3 ML NEB (ADULT) INH (21:26)
[2018-12-15] MEDS: CARVEDILOL 3.125 MG TABLET PO (21:29)
[2018-12-16] MEDS: SODIUM CHLORIDE 0.9% 1,000 ML 150 ML IV ×3 (00:14→12:16)
[2018-12-16] MEDS: KETOROLAC 15 MG/ML VIAL IV ×2 (04:03→11:16)
--- NOTE | 2018-12-16 04:56 | PC.NURSE ---
Pt denies abd pain, increased bloating, nausea. Plan to start clear liquid diet with breakfast. Pt reports pain well controlled with scheduled IV toradol.
[2018-12-16 05:58] VITALS: BP 139/68; PULSE 65; RESP 16; TEMP 36.7; O2SAT 95
[2018-12-16 07:45] VITALS: BP 131/62; PULSE 60; RESP 18; TEMP 36.4; O2SAT 96
[2018-12-16] MEDS: CARVEDILOL 3.125 MG TABLET PO (08:37)
--- NOTE | 2018-12-16 10:13 | PC.NURSE ---
Addendum entered by Meghna Maria R.N. 12/16/18 14:51: dc - saline lock dc'd, reviewed dc instructions with pt, no new scripts, paperwork provided, belongings gathered, including glasses, tellez, wearing gold colored ring w/clear stone, cell phone and swatcher, tsf to and escorted by retail sales teammate to spouse's car. Addendum entered by Meghna Maria R.N. 12/16/18 14:51: DC - sl Addendum entered by Meghna Maria R.N. 12/16/18 14:02: GI - cheryl full liq lunch, denies nausea, voiding and a small smear brown stool, in and pt will dc home. Original Note: AM NOTE - pt up ambul to br w/void, has had liq stools, denies nausea and starting clear liq this am, cheryl well, ra 95%, p65.
[2018-12-16 11:46] VITALS: BP 142/66; PULSE 62; RESP 16; TEMP 36.4; O2SAT 96
--- NOTE | 2018-12-16 13:54 | PM.DS.1 ---
History of Present Illness Chief complaint: BACK PAIN, HX [place], BOWEL BLOCKAGE Narrative: The patient is a woman who has had bowel obstructions in the past. For the last several months she has been having intermittent symptoms of crampy pain across her abdomen. They usually went away and she continued about her business. However yesterday evening they would not go away. They extended across her back. She came to the emergency room was found to have a bowel obstruction was admitted. Last bowel movement was yesterday prior to coming to the hospital. No flatus since then either. 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 Discharge Providers Date of admission: 12/15/18 00:42 Discharge Date: 12/16/18 Primary care physician: Walt Ray MD Discharge provider: Fabien Cordon MD Summary Discharge Diagnosis: Acute Small bowel obstruction. Resolved. Probably adhesive in nature. type 2 diabetes chronic diet controlled Elevated cholesterol Chronic coronary artery disease History of an ischemic cardiomyopathy Hospital Course: Patient had an NG-tube placed and was admitted. She was in the hospital tonight. The day E following her night admission she underwent a small-bowel follow-through. Contrast went through within 1 hour. There was no evidence of an obstruction. Her NG was removed and she was begun on a clear liquid diet. This was advanced to a full liquid diet the following day and she was discharged at that time feeling normal, passing gas and having bowel movements. Status at Discharge Cognitive/behavioral status at discharge: at baseline, oriented Functional status at discharge: independent ambulation Overall status at discharge: patient is back to baseline Time Spent with Patient Less than 30 minutes Exam Vital Signs (past 8 hours): - 12/16/18 05:58 12/16/18 07:45 12/16/18 11:46 Temperature 98.1 F 97.5 F L 97.6 F Pulse Rate 65 60 62 Respiratory Rate 16 18 16 Blood Pressure 139/68 131/62 142/66 H Pulse Oximetry 95 96 96 Oxygen Delivery Method Room Air Oxygen Flow Rate 0 Narrative Exam Narrative: Operative no apparent distress. Normal vitals. Abdomen is soft nontender without guarding or mass. No hernias. Patient moves without difficulty. Objective Labs Result Diagrams: 12/14/18 23:07 12/14/18 23:07 Discharge Plan Discharge Plan Patient Disposition: Home Discharge comment: If her symptoms return come back to the emergency room. Discharge Med Rec/Prescriptions Prescriptions: Continued ASPIRIN (Aspirin EC) 81 mg PO DAILY Qty: 90 RF: 3 Glucosamine Sulfate (GLUCOSAMINE) 1,000 mg PO BID Qty: 0 RF: 0 [POMEGRANATE] 250 mg PO BID Qty: 0 RF: 0 [[place] RED] 350 mg PO QDAY Qty: 0 RF: 0 carvedilol [Coreg] 3.125 MG tablet 3.125 mg PO BID Qty: 60 RF: 0 diclofenac sodium 50 mg tablet,delayed release (DR/EC) 50 mg PO QDAY Qty: 90 RF: 3 simvastatin 40 mg tablet 40 mg PO QDAYPM Qty: 90 RF: 3 Discontinued albuterol sulfate [Proventil HFA] 90 MCG/PUFF HFA aerosol inhaler 2 puff INH Q4HP PRNQty: 1 RF: 2 Follow up/Referrals: Walt Ray MD [Primary Care Provider] - Provider Discharge Instructions Diet: Diet as Tolerated Activity: No restrictions Skin/Wound/Dressing Care Report to your healthcare provider any signs of infection, such as:: increased pain Visit Report/Discharge Packet Instructions: DI for Small Bowel Obstruction Discharge Data Primary Care Provider: Walt Ray Attending Provider: Fabien Cordon Admit Date/Time: 12/15/18 00:42 Quality VTE Deep Vein Thrombosis/Pulmonary Embolism Present on Admission: No
--- NOTE | 2018-12-16 15:41 | CM.DPC ---
DCP: continued: Case received, EMR reviewed. Discussed in Team Rounds. RN coordinator noted that the ileus appeared to have resolved and all expected Dr. Cordon to see pt later today and d/c her to home setting. He was here earlier this afternoon and a check in now shows that pt's spouse was here and pt did d/c home at aobut [id number].
== END 2018-12-16 14:30 | disposition home or self-care (01) | DRG 390 ==
LOC: ED 12-15 00:38 → AC 12-15 00:44
PROVIDERS: Admitting Provider Specialist; Emergency Provider Emergency Medicine; Family Provider Internal Medicine; PCP Internal Medicine; Visit Provider Specialist
DX: K56.51 Intestinal adhesions [bands], with partial obstruction (principal); I25.10 Atherosclerotic heart disease of native coronary artery without angina pectoris; E78.2 Mixed hyperlipidemia; E11.40 Type 2 diabetes mellitus with diabetic neuropathy, unspecified
CPT/HCPCS: 36591; 71045; 74177; 74250; 80053; 82550; 82962; 83690; 83880; 84484; 85025; 93005; 94640; 96361; 96374; 96375; 99221; 99238; 99283; 99285; J1170; J1885; J2405; J7613; Q9967

== ENCOUNTER → 2019-03-13 10:31 | Outpatient (CLI) | payer MEDICARE, OTHER, SELFPAY ==
[2018-12-15 02:09] VITALS: BMI 29.5
[2019-03-13 12:18] LABS: Hemoglobin A1C% w Est Avg Glu 7.2 % (4.0-6.0)
[2019-03-13 12:42] LABS: Alanine Aminotransferase 32 IU/L (9-52); Albumin 4.3 g/dL (3.5-5.0); Albumin Globulin Ratio 1.4 (1.0-2.8); Alkaline Phosphatase 75 U/L (38-126); Aspartate Aminotransferase 40 IU/L (14-36); BUN Creatinine Ratio 28.8 (6-22); Bilirubin Total 0.6 mg/dL (0.2-1.3); Blood Urea Nitrogen 23 mg/dL (7-17); Calcium 9.6 mg/dL (8.4-10.2); Carbon Dioxide 27 mmol/L (22-32); Chloride 105 mmol/L (98-107); Estimated Glomerular Filt Rate > 60.0 mL/min (>60); Glucose 139 mg/dL (80-110); HEMOLYSIS < 15 (0-50); Potassium 4.8 mmol/L (3.4-5.1); Sodium 141 mmol/L (137-145); Total Protein 7.3 g/dL (6.3-8.2)
== END ==
PROVIDERS: PCP Internal Medicine; Visit Provider Internal Medicine
DX: E11.9 Type 2 diabetes mellitus without complications (principal); E78.2 Mixed hyperlipidemia; I25.5 Ischemic cardiomyopathy
CPT/HCPCS: 36415; 80053; 83036

== ENCOUNTER → 2019-04-11 14:05 | Outpatient (CLI) | payer MEDICARE, OTHER, SELFPAY ==
[2018-12-15 02:09] VITALS: BMI 29.5
[2019-04-11 14:52] LABS: Blood Urea Nitrogen 27 mg/dL (7-17); Carbon Dioxide 34 mmol/L (22-32); Chloride 101 mmol/L (98-107); Estimated Glomerular Filt Rate > 60.0 mL/min (>60); Glucose 131 mg/dL (80-110); HEMOLYSIS < 15 (0-50); Potassium 4.9 mmol/L (3.4-5.1); Sodium 140 mmol/L (137-145)
== END ==
PROVIDERS: Family Provider Internal Medicine Cardiovascular Disease; PCP Internal Medicine; Visit Provider Internal Medicine
DX: R60.9 Edema, unspecified (principal)
CPT/HCPCS: 36415; 80048

== ENCOUNTER → 2019-07-14 11:02 | Outpatient (CLI) | payer MEDICARE, OTHER, SELFPAY ==
[2018-12-15 02:09] VITALS: BMI 29.5
[2019-07-14 12:55] LABS: Hemoglobin A1C% w Est Avg Glu 7.4 % (4.0-6.0)
[2019-07-14 13:39] LABS: Blood Urea Nitrogen 24 mg/dL (7-17); Calcium 9.6 mg/dL (8.4-10.2); Carbon Dioxide 23 mmol/L (22-32); Chloride 107 mmol/L (98-107); Estimated Glomerular Filt Rate > 60.0 mL/min (>60); Glucose 138 mg/dL (80-110); HEMOLYSIS < 15 (0-50); Potassium 4.6 mmol/L (3.4-5.1); Sodium 140 mmol/L (137-145)
== END ==
PROVIDERS: Family Provider Internal Medicine Cardiovascular Disease; PCP Internal Medicine; Referring Provider Internal Medicine; Visit Provider Internal Medicine
DX: E11.9 Type 2 diabetes mellitus without complications (principal); E78.2 Mixed hyperlipidemia; I25.5 Ischemic cardiomyopathy
CPT/HCPCS: 36415; 80048; 83036

== ENCOUNTER → 2020-01-10 11:21 | Outpatient (CLI) | payer MEDICARE, OTHER, SELFPAY ==
[2018-12-15 02:09] VITALS: BMI 29.5
[2020-01-10 13:08] LABS: Alanine Aminotransferase 30 IU/L (<35); Albumin 4.1 g/dL (3.5-5.0); Albumin Globulin Ratio 1.4 (1.0-2.8); Alkaline Phosphatase 69 U/L (38-126); Aspartate Aminotransferase 38 IU/L (14-36); BUN Creatinine Ratio 28.3 (6-22); Bilirubin Total 0.5 mg/dL (0.2-1.3); Blood Urea Nitrogen 26 mg/dL (7-17); Calcium 9.4 mg/dL (8.4-10.2); Carbon Dioxide 27 mmol/L (22-32); Chloride 109 mmol/L (98-107); Cholesterol 123 mg/dL (140-199); Estimated Glomerular Filt Rate 58.7 mL/min (>60); Glucose 135 mg/dL (80-110); HDL Cholesterol 35 mg/dL (40-60); HEMOLYSIS 15 (0-50); LDL Cholesterol Calculated 69 mg/dL (<100); Sodium 140 mmol/L (137-145); Total Protein 7.1 g/dL (6.3-8.2); Triglycerides 96 mg/dL (35-150)
[2020-01-10 13:55] LABS: Hemoglobin A1C% w Est Avg Glu 7.6 % (4.0-6.0)
== END ==
PROVIDERS: Family Provider Internal Medicine Cardiovascular Disease; PCP Internal Medicine; Referring Provider Internal Medicine; Visit Provider Internal Medicine
DX: E11.9 Type 2 diabetes mellitus without complications (principal); E78.2 Mixed hyperlipidemia; I10 Essential (primary) hypertension; R60.9 Edema, unspecified
CPT/HCPCS: 36415; 80053; 80061; 83036

== ENCOUNTER → 2020-04-05 10:36 | Outpatient (CLI) | payer MEDICARE, OTHER, SELFPAY ==
[2018-12-15 02:09] VITALS: BMI 29.5
[2020-04-05 11:42] LABS: Hemoglobin A1C% w Est Avg Glu 7.4 % (4.0-6.0)
[2020-04-05 11:59] LABS: HEMOLYSIS < 15 (0-50); Potassium 3.9 mmol/L (3.4-5.1)
[2020-04-05 12:00] LABS: BUN Creatinine Ratio 27.4 (6-22); Blood Urea Nitrogen 26 mg/dL (7-17); Calcium 9.1 mg/dL (8.4-10.2); Carbon Dioxide 28 mmol/L (22-32); Chloride 107 mmol/L (98-107); Estimated Glomerular Filt Rate 56.5 mL/min (>60); Glucose 130 mg/dL (80-110); Sodium 140 mmol/L (137-145)
== END ==
PROVIDERS: Family Provider Internal Medicine Cardiovascular Disease; PCP Internal Medicine; Referring Provider Internal Medicine; Visit Provider Internal Medicine
DX: E11.65 Type 2 diabetes mellitus with hyperglycemia (principal)
CPT/HCPCS: 36415; 80048; 83036

== ENCOUNTER → 2020-08-02 13:01 | Outpatient (CLI) | payer MEDICARE, OTHER, SELFPAY ==
[2018-12-15 02:09] VITALS: BMI 29.5
[2020-08-02] MEDS: COVID-19 VACC, Ad26(JANSSEN)/PF 0.5 ML IM (13:14)
== END ==
PROVIDERS: Family Provider Internal Medicine Cardiovascular Disease; PCP Internal Medicine; Visit Provider Internal Medicine
DX: Z23 Encounter for immunization (principal)
CPT/HCPCS: 0031A; 91303

== ENCOUNTER → 2020-10-04 11:09 | Outpatient (CLI) | payer MEDICARE, OTHER, SELFPAY ==
[2018-12-15 02:09] VITALS: BMI 29.5
[2020-10-04 12:39] LABS: Hemoglobin A1C% w Est Avg Glu 7.1 % (4.0-6.0)
[2020-10-04 12:57] LABS: BUN Creatinine Ratio 21.4 (6-22); Blood Urea Nitrogen 18 mg/dL (7-17); Calcium 9.8 mg/dL (8.4-10.2); Carbon Dioxide 24 mmol/L (22-32); Chloride 105 mmol/L (98-107); Estimated Glomerular Filt Rate > 60.0 mL/min (>60); Glucose 134 mg/dL (80-110); HEMOLYSIS < 15 (0-50); Potassium 4.5 mmol/L (3.4-5.1); Sodium 139 mmol/L (137-145)
== END ==
PROVIDERS: Family Provider Internal Medicine Cardiovascular Disease; PCP Internal Medicine; Referring Provider Internal Medicine; Visit Provider Internal Medicine
DX: E11.9 Type 2 diabetes mellitus without complications (principal); I10 Essential (primary) hypertension
CPT/HCPCS: 36415; 80048; 83036

== ENCOUNTER → 2021-04-05 10:27 | Outpatient (CLI) | payer MEDICARE, OTHER, SELFPAY ==
[2018-12-15 02:09] VITALS: BMI 29.5
[2021-04-05 11:57] LABS: Alanine Aminotransferase 38 IU/L (<35); Albumin 4.1 g/dL (3.5-5.0); Albumin Globulin Ratio 1.4 (1.0-2.8); Alkaline Phosphatase 64 U/L (38-126); Aspartate Aminotransferase 41 IU/L (14-36); BUN Creatinine Ratio 22.1 (6-22); Bilirubin Total 0.5 mg/dL (0.2-1.3); Blood Urea Nitrogen 19 mg/dL (7-17); Calcium 9.1 mg/dL (8.4-10.2); Carbon Dioxide 28 mmol/L (22-32); Chloride 104 mmol/L (98-107); Estimated Glomerular Filt Rate > 60.0 mL/min (>60); Glucose 135 mg/dL (80-110); HEMOLYSIS < 15 (0-50); Potassium 3.6 mmol/L (3.4-5.1); Sodium 139 mmol/L (137-145); Total Protein 7.1 g/dL (6.3-8.2)
[2021-04-05 12:24] LABS: Hemoglobin A1C% w Est Avg Glu 7.3 % (4.0-6.0)
== END ==
PROVIDERS: Family Provider Internal Medicine Cardiovascular Disease; PCP Internal Medicine; Referring Provider Internal Medicine; Visit Provider Internal Medicine
DX: E11.9 Type 2 diabetes mellitus without complications (principal); E78.2 Mixed hyperlipidemia; I10 Essential (primary) hypertension
CPT/HCPCS: 36415; 80053; 83036

== ENCOUNTER → 2021-10-30 13:12 | Outpatient (CLI) | payer MEDICARE, OTHER, SELFPAY ==
[2018-12-15 02:09] VITALS: BMI 29.5
[2021-10-30 15:02] LABS: Alanine Aminotransferase 30 IU/L (<35); Albumin 3.8 g/dL (3.5-5.0); Albumin Globulin Ratio 1.3 (1.0-2.8); Alkaline Phosphatase 64 U/L (38-126); Aspartate Aminotransferase 33 IU/L (14-36); BUN Creatinine Ratio 25.3 (6-22); Bilirubin Total 0.6 mg/dL (0.2-1.3); Blood Urea Nitrogen 20 mg/dL (7-17); Calcium 8.7 mg/dL (8.4-10.2); Carbon Dioxide 27 mmol/L (22-32); Chloride 103 mmol/L (98-107); Cholesterol 141 mg/dL (140-199); Estimated Glomerular Filt Rate > 60 mL/min (>60); Globulin 2.9 g/dL (1.7-4.1); Glucose 137 mg/dL (80-110); HDL Cholesterol 43 mg/dL (40-60); HEMOLYSIS < 15 (0-50); LDL Cholesterol Calculated 72 mg/dL (<100); Potassium 4.4 mmol/L (3.4-5.1); Sodium 140 mmol/L (137-145); Total Protein 6.7 g/dL (6.3-8.2); Triglycerides 131 mg/dL (35-150)
== END ==
PROVIDERS: Family Provider Internal Medicine Cardiovascular Disease; PCP Internal Medicine; Referring Provider Internal Medicine; Visit Provider Internal Medicine
DX: E11.65 Type 2 diabetes mellitus with hyperglycemia (principal); I10 Essential (primary) hypertension; R60.9 Edema, unspecified; E11.9 Type 2 diabetes mellitus without complications; E78.2 Mixed hyperlipidemia
CPT/HCPCS: 36415; 80053; 80061; 83036

== ENCOUNTER → 2022-01-28 11:15 | Outpatient (CLI) | payer MEDICARE, OTHER, SELFPAY ==
[2018-12-15 02:09] VITALS: BMI 29.5
[2022-01-28 12:24] LABS: Hemoglobin A1C% w Est Avg Glu 8.1 % (4.0-6.0)
[2022-01-28 12:26] LABS: BUN Creatinine Ratio 29.2 (6-22); Blood Urea Nitrogen 26 mg/dL (7-17); Calcium 8.9 mg/dL (8.4-10.2); Carbon Dioxide 26 mmol/L (22-32); Chloride 106 mmol/L (98-107); Estimated Glomerular Filt Rate > 60 mL/min (>60); Glucose 157 mg/dL (80-110); HEMOLYSIS < 15 (0-50); Potassium 4.5 mmol/L (3.4-5.1); Sodium 139 mmol/L (137-145)
== END ==
PROVIDERS: Family Provider Internal Medicine Cardiovascular Disease; PCP Internal Medicine; Referring Provider Internal Medicine; Visit Provider Internal Medicine
DX: E11.9 Type 2 diabetes mellitus without complications (principal); E11.65 Type 2 diabetes mellitus with hyperglycemia
CPT/HCPCS: 36415; 80048; 83036

== ENCOUNTER → 2022-04-15 11:19 | Outpatient (CLI) | payer MEDICARE, OTHER, SELFPAY ==
[2018-12-15 02:09] VITALS: BMI 29.5
[2022-04-15 12:35] LABS: Hemoglobin A1C% w Est Avg Glu 7.4 % (4.0-6.0)
[2022-04-15 13:22] LABS: BUN Creatinine Ratio 29.3 (6-22); Blood Urea Nitrogen 24 mg/dL (7-17); Calcium 9.4 mg/dL (8.4-10.2); Carbon Dioxide 24 mmol/L (22-32); Chloride 105 mmol/L (98-107); Estimated Glomerular Filt Rate > 60 mL/min (>60); Glucose 145 mg/dL (80-110); HEMOLYSIS 21 (0-50); Potassium 4.5 mmol/L (3.4-5.1); Sodium 140 mmol/L (137-145)
== END ==
PROVIDERS: Family Provider Internal Medicine Cardiovascular Disease; PCP Internal Medicine; Referring Provider Internal Medicine; Visit Provider Internal Medicine
DX: E11.65 Type 2 diabetes mellitus with hyperglycemia (principal)
CPT/HCPCS: 36415; 80048; 83036

== ENCOUNTER → 2022-06-19 15:38 | Outpatient (CLI) | payer MEDICARE, OTHER, SELFPAY ==
[2018-12-15 02:09] VITALS: BMI 29.5
[2022-06-19 16:22] LABS: BUN Creatinine Ratio 30.4 (6-22); Blood Urea Nitrogen 24 mg/dL (7-17); Calcium 8.8 mg/dL (8.4-10.2); Carbon Dioxide 26 mmol/L (22-32); Chloride 104 mmol/L (98-107); Estimated Glomerular Filt Rate > 60 mL/min (>60); Glucose 188 mg/dL (80-110); HEMOLYSIS 49 (0-50); Potassium 4.4 mmol/L (3.4-5.1); Sodium 140 mmol/L (137-145)
== END ==
PROVIDERS: Family Provider Internal Medicine Cardiovascular Disease; PCP Internal Medicine; Referring Provider Internal Medicine Cardiovascular Disease; Visit Provider Internal Medicine Cardiovascular Disease
DX: I10 Essential (primary) hypertension (principal)
CPT/HCPCS: 36415; 80048

== ENCOUNTER → 2022-08-28 10:03 | Outpatient (CLI) | payer MEDICARE, OTHER, SELFPAY ==
[2018-12-15 02:09] VITALS: BMI 29.5
[2022-08-28 12:40] LABS: Alanine Aminotransferase 29 IU/L (<35); Albumin 4.2 g/dL (3.5-5.0); Albumin Globulin Ratio 1.5 (1.0-2.8); Alkaline Phosphatase 61 U/L (38-126); Aspartate Aminotransferase 31 IU/L (14-36); Bilirubin Total 0.6 mg/dL (0.2-1.3); Blood Urea Nitrogen 28 mg/dL (7-17); Calcium 9.2 mg/dL (8.4-10.2); Carbon Dioxide 25 mmol/L (22-32); Chloride 103 mmol/L (98-107); Estimated Glomerular Filt Rate 56 mL/min (>60); Globulin 2.8 g/dL (1.7-4.1); Glucose 118 mg/dL (80-110); HEMOLYSIS < 15 (0-50); Potassium 4.4 mmol/L (3.4-5.1); Sodium 138 mmol/L (137-145)
[2022-08-29 06:09] LABS: Labcorp Hemoglobin (Hb) A1c 7.2 % (4.8-5.6)
== END ==
PROVIDERS: Family Provider Internal Medicine Cardiovascular Disease; PCP Internal Medicine; Referring Provider Internal Medicine; Visit Provider Internal Medicine
DX: I10 Essential (primary) hypertension (principal); E11.9 Type 2 diabetes mellitus without complications
CPT/HCPCS: 36415; 80053; 83036

== ENCOUNTER 2022-09-04 20:53 | Inpatient (IN) | payer MEDICARE, OTHER, SELFPAY ==
[2018-12-15 02:09] VITALS: BMI 29.5
[2022-09-04] VITALS (13 sets, daily range): BP systolic 143–212; BP diastolic 59–95; PULSE 63–87; RESP 13–18; TEMP 36.1–36.7; O2SAT 93–97
[2022-09-04] MEDS: ONDANSETRON 4 MG/2 ML INJ IV (22:01)
[2022-09-04 22:09] LABS: Add Manual Diff / Slide Review NO; Basophils Absolute Auto 100 /uL (0-100); Basophils Percent Auto 0.6 % (0-2); Eosinophils Absolute Auto 100 /uL (0-450); Hematocrit 43.8 % (36-46); Hemoglobin 14.5 g/dL (12.0-16.0); Lymphocytes Absolute Auto 2000 /uL (1100-4500); Lymphocytes Percent Auto 15.8 % (25-40); Mean Corpuscular HGB Conc 33.1 % (30-36); Mean Corpuscular Hemoglobin 29.5 PG (26-34); Mean Corpuscular Volume 89.3 fL (80-100); Monocytes Absolute Auto 900 /uL (0-900); Monocytes Percent Auto 7.5 % (3-14); Neutrophils Absolute Auto 9300 /uL (1500-7000); Neutrophils Percent Auto 75.1 % (50-75); Platelet Count 217 X10^3/uL (150-400); Red Blood Cell Count 4.91 X10^6/uL (4.0-5.2); White Blood Cell Count 12.4 X10^3/uL (4.5-11.0)
[2022-09-04 22:10] LABS: Alanine Aminotransferase 40 IU/L (<35); Albumin 4.6 g/dL (3.5-5.0); Albumin Globulin Ratio 1.3 (1.0-2.8); Alkaline Phosphatase 75 U/L (38-126); Aspartate Aminotransferase 44 IU/L (14-36); BUN Creatinine Ratio 38.6 (6-22); Bilirubin Total 0.8 mg/dL (0.2-1.3); Blood Urea Nitrogen 32 mg/dL (7-17); Calcium 9.7 mg/dL (8.4-10.2); Carbon Dioxide 26 mmol/L (22-32); Chloride 101 mmol/L (98-107); Creatine Kinase 121 U/L (30-135); Estimated Glomerular Filt Rate > 60 mL/min (>60); Globulin 3.6 g/dL (1.7-4.1); Glucose 150 mg/dL (80-110); HEMOLYSIS 40 (0-50); Lipase 106 U/L (23-300); Potassium 4.9 mmol/L (3.4-5.1); Sodium 137 mmol/L (137-145); Total Protein 8.2 g/dL (6.3-8.2)
--- NOTE | 2022-09-04 22:18 | ED.ABDPAIN ---
HPI - Abdominal Pain General Chief Complaint: Abdominal Pain Stated Complaint: ABD pain, Thinks poss heart attack or GI blockage Time Seen by Provider: 09/04/22 21:52 Source: patient and family (daughter.) Mode of arrival: Ambulatory Limitations: no limitations History of Present Illness HPI narrative: This is an 82-year-old female comes emergency department with complaint of abdominal pain that started as mild right upper quadrant pain this morning at about noon started increasing and wrapping around to her back and then has now since wrapped around from the other side. Patient has had similar symptoms in the past in 2013 she had similar symptoms and was found to have a myocardial infarction. In about 2017 she had similar symptoms and was found to have a bowel obstruction. She states today after she ate dinner the pain rapidly worsened in her upper abdomen. She is had nausea, she had 1 episode of dry heaves here in the department. She denies fevers or chills, no diaphoresis. She denies pain up in her chest. She does not feel short of breath, she states no pleuritic pain. She has had normal bowel movements 3 times today which is her typical. Patient states typical have 3 or 4 bowel movements daily she states they are formed, no bright red, no melena. She denies dysuria, urgency or frequency. Patient does have a history of cardiac stents, she had a bowel resection after her prior bowel obstruction. She is had a remote cholecystectomy, tubal, hysterectomy and bladder sling. No known drug allergies. She is on aspirin 81 mg daily, simvastatin, losartan, glipizide, carvedilol, diclofenac topically and Lasix as needed. No tobacco, alcohol 2 times yearly, no illicit. Her primary care is Dr. Ray. Her police communications dispatcher is Dr. Franco. She has not had anything for pain today. Related Data Home Medications Medication Instructions Recorded Confirmed Glucosamine Sulfate (GLUCOSAMINE) 1,000 mg PO BID ##0 02/02/13 09/05/22 [FATOUMATA RED] 350 mg PO QDAY ##0 02/02/13 09/05/22 Protandum 1 tab PO DAILY 03/14/19 09/05/22 carvedilol 12.5 mg tablet 12.5 mg PO BID 08/31/22 09/05/22 furosemide 20 mg tablet 20 mg PO PRN PRN swelling 08/31/22 09/05/22 Previous Rx's Medication Instructions Recorded ASPIRIN (Aspirin EC) 81 mg PO DAILY ##90 07/14/12 blood sugar diagnostic (OneTouch #100 ea 11/06/21 Ultra Test strips) lancets 33 gauge #100 ea 11/06/21 simvastatin 40 mg tablet 40 mg PO QPM #90 tabs 12/30/21 diclofenac sodium 50 mg See Rx Instructions .Route 04/14/22 tablet,delayed release .COMPLEX #90 tabs glipizide 2.5 mg tablet, extended 2.5 mg PO DAILY #90 tabs 06/15/22 release 24 hr Allergies Allergy/AdvReac Type Severity Reaction Status Date / Time lisinopril AdvReac Intermediate cough, Verified 08/31/22 13:35 hyperkalemia metformin AdvReac Intermediate alopecia Verified 08/31/22 13:35 Review of Systems Review of Systems ROS Unobtainable: All systems reviewed & are unremarkable except as noted in HPI and below Patient History Medical History Coronary artery disease involving [place] coronary artery of [place] heart without angina pectoris (10/2003) Diabetic neuropathy Essential hypertension Ischemic cardiomyopathy (2015) [place] (myocardial infarction) (10/2003) Mixed hyperlipidemia Myocardial infarction Nonrheumatic mitral valve regurgitation Peripheral edema Small bowel obstruction Small bowel obstruction (2016) Small bowel obstruction (11/20/17) Type 2 diabetes mellitus (06/30/12) Surgical History History of appendectomy (1973) History of cholecystectomy (1973) History of coronary artery stent placement (10/2003) Status post colonoscopy (2005) Status post coronary angiogram Status post epidural steroid injection (11/20/17) Status post exploratory laparotomy (11/20/17) Status post hysterectomy (1999) Family History Brother Colorectal cancer Mother CAD (coronary artery disease) Social History marital status: number of children: 5 household members: spouse lives independently: Yes caregiver/support person: No housing: house pets and animals: No education level: high school occupational status: other (Retired) 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 Anything that can be done with hands.) Smoking Status: Never smoker Tobacco: How many years used: 0 quit status: quit date established (Never Started) second hand exposure: No alcohol intake: current substance use type: does not use Smoking Status: Never smoker alcohol intake frequency: other Substance Use Type: does not use Exam Narrative Exam Narrative: GENERAL: Alert and oriented x three, elderly female in moderate distress HEENT: Head normocephalic, atraumatic, EOMI, pupils reactive, face symmetric, moist mucous membranes NECK: Supple, full range of motion CARDIOVASCULAR: Regular rate and rhythm without murmurs, rubs or gallops. No JVD. No swelling bilateral lower extremities. RESPIRATORY: Breath sounds equal bilaterally, no wheezes rales or rhonchi. No tachypnea or accessory muscle use. ABDOMEN: Soft, generalized tenderness somewhat worse in the left upper quadrant. Normoactive bowel sounds all 4 quadrants. No guarding or rebound, rigidity, no mass, no pulsatile mass or bruit : No CVA tenderness EXTREMITIES: Normal range of motion, no clubbing or edema. 2+ pulses bilateral lower extremities. Neurovascularly intact NEUROLOGICAL: Cranial nerves II through XII grossly intact. Moving all extremities SKIN: Warm, dry, no petechiae, no rashes or lesions. Initial Vital Signs Initial Vital Signs: Vital Signs Pulse Rate 72 09/04/22 21:35 Respiratory Rate 17 09/04/22 21:35 Course Orders Ordered: ED Orders 09/04/22 21:41 Complete Blood Count AUTO DIFF Stat Comprehensive Metabolic Panel Stat Lactate (Lactic Acid) Stat Lipase Stat Troponin & CK Cardiac Panel Stat 09/04/22 21:53 EKG-12 Lead Stat 09/04/22 22:28 CT abdomen pelvis w con Stat 09/04/22 22:33 Chest [XR chest 1V] Stat 09/04/22 23:05 Blood Culture Stat 09/04/22 23:18 Consult to General Surgery Urgent Sodium Chloride (Normal Saline 0.9%) 1,000 mls @ 150 mls/hr IV CONT ARTEMIO Last Infusion: 09/04/22 23:47 Dose: 0 mls/hr Documented By: Admin: 09/04/22 22:45 Dose: 150 mls/hr Documented By: MAURICE Sodium Chloride (Normal Saline 0.9%) 1,000 mls @ 125 mls/hr IV CONT ARTEIMO Last Admin: 09/04/22 23:48 Dose: 125 mls/hr Documented By: MAURICE Morphine Sulfate (Morphine 2 Mg/Ml Inj) 2 mg IV Q2HR PRN PRN Reason: Pain, Moderate (4-6) Last Admin: 09/05/22 05:53 Dose: 2 mg Documented By: Admin: 09/05/22 01:14 Dose: 2 mg Documented By: Admin: 09/04/22 22:48 Dose: 2 mg Documented By: MAURICE Morphine Sulfate (Morphine 2 Mg/Ml Inj) 2 mg IV Q4HR PRN PRN Reason: pain Naloxone HCl (Naloxone 0.4 Mg/Ml Vial) 0.2 mg IV Q2MIN PRN PRN Reason: Opiate Reversal Ondansetron HCl (Ondansetron 4 Mg Odt) 4 mg PO NOW PRN PRN Reason: Nausea And Vomiting Ondansetron HCl (Ondansetron 4 Mg/2 Ml Inj) 4 mg IV NOW PRN PRN Reason: Nausea And Vomiting Last Admin: 09/04/22 22:01 Dose: 4 mg Documented By: MAURICE Ondansetron HCl (Ondansetron 4 Mg/2 Ml Inj) 4 mg IV Q4HR PRN PRN Reason: Nausea And Vomiting Last Admin: 09/05/22 05:53 Dose: 4 mg Documented By: Admin: 09/05/22 01:14 Dose: 4 mg Documented By: FORD Vital Signs Vital signs: Vital Signs - 8 hr 09/04/22 22:11 09/04/22 22:11 09/04/22 22:20 Pulse Rate 67 68 Respiratory Rate 13 Blood Pressure 181/78 H Pulse Oximetry 95 93 Oxygen Delivery Method 09/04/22 22:20 09/04/22 22:30 09/04/22 22:30 Pulse Rate 65 Respiratory Rate Blood Pressure 180/80 H 163/77 H Pulse Oximetry 96 Oxygen Delivery Method 09/04/22 23:00 09/04/22 23:12 09/04/22 23:12 Pulse Rate 68 66 Respiratory Rate Blood Pressure 146/65 H Pulse Oximetry 97 95 Oxygen Delivery Method 09/04/22 23:15 09/04/22 23:15 Pulse Rate 67 Respiratory Rate Blood Pressure 144/59 H Pulse Oximetry 94 Oxygen Delivery Method Room Air MDM - Abdominal Pain Lab Data 09/04/22 21:41 09/04/22 21:41 Labs: Lab Results 09/04/22 09/04/22 09/04/22 Range/Units 21:41 21:41 21:41 WBC 12.4 H (4.5-11.0) X10^3/uL RBC 4.91 (4.0-5.2) X10^6/uL Hgb 14.5 (12.0-16.0) g/dL Hct 43.8 (36-46) % MCV 89.3 (80-100) fL MCH 29.5 (26-34) PG MCHC 33.1 (30-36) % RDW 14.0 (11.6-14.8) % Plt Count 217 (150-400) X10^3/uL Neut % (Auto) 75.1 H (50-75) % Lymph % (Auto) 15.8 L (25-40) % [place] % (Auto) 7.5 (3-14) % Eos % (Auto) 1.0 L (2-4) % Baso % (Auto) 0.6 (0-2) % Neut # (Auto) 9300 H (7069-4591) /uL Lymph # (Auto) 2000 (5807-5508) /uL [place] # (Auto) 900 (0-900) /uL Eos # (Auto) 100 (0-450) /uL Baso # (Auto) 100 (0-100) /uL Sodium 137 (137-145) mmol/L Potassium 4.9 (3.4-5.1) mmol/L Chloride 101 (98-107) mmol/L Carbon Dioxide 26 (22-32) mmol/L BUN 32 H (7-17) mg/dL Creatinine 0.83 (0.52-1.04) mg/dL Estimated GFR > 60 (>60) mL/min BUN/Creatinine Ratio 38.6 H (6-22) Glucose 150 H (80-110) mg/dL Lactate (0.7-2.1) mmol/L Calcium 9.7 (8.4-10.2) mg/dL Total Bilirubin 0.8 (0.2-1.3) mg/dL AST 44 H (14-36) IU/L ALT 40 H (<35) IU/L Alkaline Phosphatase 75 (38-126) U/L Total Creatine Kinase 121 (30-135) U/L CK-MB (CK-2) 2.12 (<2.37) ng/mL CK-MB (CK-2) Rel Index 1.8 (1.5-5.0) % Troponin I < 0.012 (0.01-0.034) ng/mL Total Protein 8.2 (6.3-8.2) g/dL Albumin 4.6 (3.5-5.0) g/dL Globulin 3.6 (1.7-4.1) g/dL Albumin/Globulin Ratio 1.3 (1.0-2.8) Lipase 106 (23-300) U/L 09/04/22 Range/Units 21:41 WBC (4.5-11.0) X10^3/uL RBC (4.0-5.2) X10^6/uL Hgb (12.0-16.0) g/dL Hct (36-46) % MCV (80-100) fL MCH (26-34) PG MCHC (30-36) % RDW (11.6-14.8) % Plt Count (150-400) X10^3/uL Neut % (Auto) (50-75) % Lymph % (Auto) (25-40) % [place] % (Auto) (3-14) % Eos % (Auto) (2-4) % Baso % (Auto) (0-2) % Neut # (Auto) (9891-1628) /uL Lymph # (Auto) (5747-6331) /uL [place] # (Auto) (0-900) /uL Eos # (Auto) (0-450) /uL Baso # (Auto) (0-100) /uL Sodium (137-145) mmol/L Potassium (3.4-5.1) mmol/L Chloride (98-107) mmol/L Carbon Dioxide (22-32) mmol/L BUN (7-17) mg/dL Creatinine (0.52-1.04) mg/dL Estimated GFR (>60) mL/min BUN/Creatinine Ratio (6-22) Glucose (80-110) mg/dL Lactate 1.2 (0.7-2.1) mmol/L Calcium (8.4-10.2) mg/dL Total Bilirubin (0.2-1.3) mg/dL AST (14-36) IU/L ALT (<35) IU/L Alkaline Phosphatase (38-126) U/L Total Creatine Kinase (30-135) U/L CK-MB (CK-2) (<2.37) ng/mL CK-MB (CK-2) Rel Index (1.5-5.0) % Troponin I (0.01-0.034) ng/mL Total Protein (6.3-8.2) g/dL Albumin (3.5-5.0) g/dL Globulin (1.7-4.1) g/dL Albumin/Globulin Ratio (1.0-2.8) Lipase (23-300) U/L Imaging Data CT scan - abdomen/pelvis: Radiologist's Impression: [address] [address] [address] Scan Report Signed Patient: Vilma Russell MR#: [id number] : 1940 Acct:[id number] Age/Sex: 82 / F Date of Service: 09/04/22 Loc: ED Accession Number: [id number] ?? Procedure: CT abdomen pelvis w con Ordering Provider: Roz Daigle D.O. PROCEDURE:? CT ABDOMEN PELVIS W CON ? INDICATIONS:? RUQ pain wrapping around to other side, hx SBO felt same ? TECHNIQUE:? After the administration of IV contrast, axial sections were acquired from the lung bases to the pubic symphysis.? Coronal and sagittal reformats were performed.? For radiation dose reduction, the following was used:? automated exposure control, adjustment of mA and/or kV according to patient size. ? COMPARISON:? [facility], CT, CT ABDOMEN PELVIS W CON, 12/14/2018, 23:36. ? FINDINGS:? Image quality:? Excellent.? ? Lung bases:? Appear clear.? The nodular opacity seen on the prior CT is outside the field of view.? Resolution cannot be confirmed.? No pleural effusion.? ? Heart:? No significant findings. ? ? ABDOMEN: Liver:? Unremarkable.? ? Gallbladder:? Absent.? ? Biliary ducts:? Unremarkable.? ? Pancreas:? Unremarkable.? ? Spleen:? Unremarkable.? ? Adrenal Glands:? Unremarkable.? ? Kidneys and Ureters:? No hydronephrosis.? Trace excreted contrast in the right kidney. ? Stomach and Bowel:? Stomach is distended.? Small duodenal diverticulum.? Dilated loops of small bowel with transition point at the small bowel anastomosis in the right abdomen, ().? There is fecalization.? There is trace fluid adjacent to the small bowel in the right lower quadrant, (08/16), likely reactive.? Diverticulosis.? The appendix is not seen. Peritoneum:? No abnormal intraperitoneal fluid.? No free air.? ? Ventral Wall: ? No hernia.? Ventral scar.? Abdominal Nodes:? No retroperitoneal or mesenteric adenopathy by size criteria.? Vessels:? Aorta and inferior vena cava are normal in size.? ? PELVIS: Pelvic Organs:? Uterus is absent.? ? Bladder:? Small stone in the urinary bladder, (), unchanged.? ? Pelvic Nodes: No enlarged lymph nodes.? Miscellaneous: No inguinal hernias are seen. ? ? ? Bones:? No suspicious lesion.? DDD.? Scoliosis. ? ? IMPRESSION:? 1. Small bowel obstruction.? Transition point at the small bowel anastomosis in the right abdomen. ? 2. No pneumoperitoneum.? Trace free fluid. ? 3. Small stone in the urinary bladder, unchanged. ? ? Preliminary results discussed with Dr. Daigle at time of dictation.? ? Dictated by: Malik Madsen M.D. on 09/04/2022 at 22:50 ? ? Approved by: Malik Madsen M.D. on 09/04/2022 at 23:00?? ECG Data Attestation: I personally reviewed and interpreted this ECG as follows: Prior ECG tracings: available for review Interpretation: Sinus rhythm rate of 69 TN 172 QRS of 90, QTC 430. Left anterior fascicular block. No ST elevation. Patient has questionable T waves in V1 V2 but appears similar to 12/14/2018. Patient has T-wave is inverted in aVL not in 1. MDM Narrative Medical decision making narrative: This is an 82-year-old female who presents with complaint of pain that started in the right upper quadrant which wraps around to her back and on both sides. She states this feels like her prior heart attack and feels like her prior bowel obstruction that required resection that occurred on separate occasions many years ago. Patient's CBC shows a white count of 12, no anemia normal platelets, BUN 32, creatinine is normal at 0.83, electrolytes do not show major change bilirubin is 0.8, AST ALT are 44 and 40, lipase is normal. Lactate is 1.2 Blood cultures ordered Urine shows EKG does not show acute or dynamic changes. Chest x-ray and CT abdomen pelvis as patient seems what more tender in the left upper quadrant but with generalized tenderness throughout. She has had some nausea and vomiting this morning but has been stooling. Plan for fluids and pain medication. CXR: No acute chest CT shows changes consistent with small-bowel obstruction with a transition point at the small bowel anastomosis in the right upper abdomen. No free fluid. No pneumoperitoneum. Small stone in the bladder unchanged. Spoke with Dr. Du happy to consult. Spoke with MARILEE Sandhu 125 mL per hour, NPO, pain medication, Zofran. Asked for these to be put in his bridging orders. She accepts for admission. Discharge Plan Departure Patient Disposition: Admitted As Inpatient Clinical Impression: Partial small bowel obstruction Admit Date/Time: 09/04/22 23:19 Admit Provider: Tabby Stewart
[2022-09-04 22:22] LABS: Troponin I < 0.012 ng/mL (0.01-0.034)
[2022-09-04 22:26] LABS: CKMB % Relative Index 1.8 % (1.5-5.0); Creatine Kinase MB 2.12 ng/mL (<2.37)
--- NOTE | 2022-09-04 22:28 | DI.CT.S_ITS ---
PROCEDURE: CT ABDOMEN PELVIS W CON INDICATIONS: RUQ pain wrapping around to other side, hx SBO felt same TECHNIQUE: After the administration of IV contrast, axial sections were acquired from the lung bases to the pubic symphysis. Coronal and sagittal reformats were performed. For radiation dose reduction, the following was used: automated exposure control, adjustment of mA and/or kV according to patient size. COMPARISON: [facility], CT, CT ABDOMEN PELVIS W CON, 12/14/2018, 23:36. FINDINGS: Image quality: Excellent. Lung bases: Appear clear. The nodular opacity seen on the prior CT is outside the field of view. Resolution cannot be confirmed. No pleural effusion. Heart: No significant findings. ABDOMEN: Liver: Unremarkable. Gallbladder: Absent. Biliary ducts: Unremarkable. Pancreas: Unremarkable. Spleen: Unremarkable. Adrenal Glands: Unremarkable. Kidneys and Ureters: No hydronephrosis. Trace excreted contrast in the right kidney. Stomach and Bowel: Stomach is distended. Small duodenal diverticulum. Dilated loops of small bowel with transition point at the small bowel anastomosis in the right abdomen, (2/58). There is fecalization. There is trace fluid adjacent to the small bowel in the right lower quadrant, (3/26), likely reactive. Diverticulosis. The appendix is not seen. Peritoneum: No abnormal intraperitoneal fluid. No free air. Ventral Wall: No hernia. Ventral scar. Abdominal Nodes: No retroperitoneal or mesenteric adenopathy by size criteria. Vessels: Aorta and inferior vena cava are normal in size. PELVIS: Pelvic Organs: Uterus is absent. Bladder: Small stone in the urinary bladder, (4/46), unchanged. Pelvic Nodes: No enlarged lymph nodes. Miscellaneous: No inguinal hernias are seen. Bones: No suspicious lesion. DDD. Scoliosis. IMPRESSION: 1. Small bowel obstruction. Transition point at the small bowel anastomosis in the right abdomen. 2. No pneumoperitoneum. Trace free fluid. 3. Small stone in the urinary bladder, unchanged. Preliminary results discussed with Dr. Daigle at time of dictation. Dictated by: Malik Madsen M.D. on 09/04/2022 at 22:50 Approved by: Malik Madsen M.D. on 09/04/2022 at 23:00
--- NOTE | 2022-09-04 22:33 | DI.RAD.S_ITS ---
PROCEDURE: XR CHEST 1V INDICATIONS: abd pain TECHNIQUE: One view of the chest was acquired. COMPARISON: [facility], CT, CT ABDOMEN PELVIS W CON, 09/04/2022, 22:32. [facility], CR, XR CHEST 1V, 12/14/2018, 23:09. [facility], CR, XR CHEST 2V, 09/28/2018, 12:15. FINDINGS: Surgical changes and devices: None. Lungs and pleura: Lungs are clear. No pleural effusions or pneumothorax. Mediastinum: Mediastinal contours appear normal. Heart size appears prominent. Bones and chest wall: No suspicious bony lesions. Overlying soft tissues appear unremarkable. IMPRESSION: No acute cardiopulmonary abnormality. Dictated by: Malik Madsen M.D. on 09/04/2022 at 23:12 Approved by: Malik Madsen M.D. on 09/04/2022 at 23:13
[2022-09-04] MEDS: SODIUM CHLORIDE 0.9% 1,000 ML 150 ML IV (22:45)
[2022-09-04] MEDS: MORPHINE 2 MG/ML INJ IV (22:48)
[2022-09-04 23:03] LABS: Lactate (Lactic Acid) 1.2 mmol/L (0.7-2.1)
[2022-09-04] MEDS: SODIUM CHLORIDE 0.9% 1,000 ML 125 ML IV (23:48)
[2022-09-05] VITALS (7 sets, daily range): BP systolic 138–176; BP diastolic 56–81; PULSE 67–85; RESP 17–20; TEMP 36.4–37.2; O2SAT 93–99
[2022-09-05] MEDS: MORPHINE 2 MG/ML INJ IV ×6 (01:14→18:54)
[2022-09-05] MEDS: ONDANSETRON 4 MG/2 ML INJ IV ×4 (01:14→19:04)
[2022-09-05 01:48] LABS: COVID19 -Nasal RAPID Negative (Negative)
[2022-09-05] MEDS: SODIUM CHLORIDE 0.9% 1,000 ML 125 ML IV ×3 (06:46→23:10)
--- NOTE | 2022-09-05 10:30 | PM.CN ---
History of Present Illness Consult details Date Patient Seen: 09/05/22 Time Patient Seen: 10:46 Chief complaint: ABD pain Narrative: 82-year-old woman with a history of prior abdominal surgery admitted hospital with a small-bowel obstruction. She presented yesterday to the emergency department with complaint of abdominal pain and distention. Last bowel movement was yesterday with no flatus since. Nauseous no emesis. She is a history of prior small bowel obstruction requiring exploratory laparotomy 2018. She has had multiple episodes of partial small bowel obstruction which have resolved non operatively. Abdominal surgeries include exploratory laparotomy, open cholecystectomy and section. At admission afebrile vital signs within limits white blood cell count 12. CT abdomen pelvis demonstrates dilated loops of small bowel with a transition point in the right lower quadrant no free air or free fluid. Meds Home Medications and Allergies Home Medications Medication Instructions Recorded Confirmed Type ASPIRIN (Aspirin EC) 81 mg PO DAILY ##90 07/14/12 09/05/22 Rx Glucosamine Sulfate (GLUCOSAMINE) 1,000 mg PO BID ##0 02/02/13 09/05/22 History [FAT[place] RED] 350 mg PO QDAY ##0 02/02/13 09/05/22 History Protandum 1 tab PO DAILY 03/14/19 09/05/22 History blood sugar diagnostic (OneTouch #100 ea 11/06/21 09/05/22 Rx Ultra Test strips) lancets 33 gauge #100 ea 11/06/21 09/05/22 Rx simvastatin 40 mg tablet 40 mg PO QPM #90 tabs 12/30/21 09/05/22 Rx diclofenac sodium 50 mg See Rx Instructions .Route 04/14/22 09/05/22 Rx tablet,delayed release .COMPLEX #90 tabs glipizide 2.5 mg tablet, extended 2.5 mg PO DAILY #90 tabs 06/15/22 09/05/22 Rx release 24 hr carvedilol 12.5 mg tablet 12.5 mg PO BID 08/31/22 09/05/22 History furosemide 20 mg tablet 20 mg PO PRN PRN swelling 08/31/22 09/05/22 History Allergies Allergy/AdvReac Type Severity Reaction Status Date / Time lisinopril AdvReac Intermediate cough, Verified 08/31/22 13:35 hyperkalemia metformin AdvReac Intermediate alopecia Verified 08/31/22 13:35 Exam Vital Signs (past 8 hours): - 09/05/22 05:23 09/05/22 08:00 Temperature 97.7 F 99 F Pulse Rate 67 71 Respiratory Rate 18 18 Blood Pressure 148/62 H 138/56 L Pulse Oximetry 95 95 Oxygen Flow Rate 0 Oxygen Delivery Method Room Air Oxygen Flow Rate 0 Narrative Exam Narrative: General adult woman alert oriented no acute distress Chest nonlabored respiration Abdomen distended tender, compressible no peritonitis. Objective Labs 09/04/22 21:41 09/04/22 21:41 Labs: Laboratory Results - last 24 hr 09/04/22 09/04/22 09/04/22 21:41 21:41 21:41 WBC 12.4 H RBC 4.91 Hgb 14.5 Hct 43.8 MCV 89.3 MCH 29.5 MCHC 33.1 RDW 14.0 Plt Count 217 Neut % (Auto) 75.1 H Lymph % (Auto) 15.8 L [place] % (Auto) 7.5 Eos % (Auto) 1.0 L Baso % (Auto) 0.6 Neut # (Auto) 9300 H Lymph # (Auto) 2000 [place] # (Auto) 900 Eos # (Auto) 100 Baso # (Auto) 100 Sodium 137 Potassium 4.9 Chloride 101 Carbon Dioxide 26 BUN 32 H Creatinine 0.83 Estimated GFR > 60 BUN/Creatinine Ratio 38.6 H Glucose 150 H Lactate Calcium 9.7 Total Bilirubin 0.8 AST 44 H ALT 40 H Alkaline Phosphatase 75 Total Creatine Kinase 121 CK-MB (CK-2) 2.12 CK-MB (CK-2) Rel Index 1.8 Troponin I < 0.012 Total Protein 8.2 Albumin 4.6 Globulin 3.6 Albumin/Globulin Ratio 1.3 Lipase 106 SARS-CoV-2 (PCR) 09/04/22 09/05/22 21:41 01:33 WBC RBC Hgb Hct MCV MCH MCHC RDW Plt Count Neut % (Auto) Lymph % (Auto) [place] % (Auto) Eos % (Auto) Baso % (Auto) Neut # (Auto) Lymph # (Auto) [place] # (Auto) Eos # (Auto) Baso # (Auto) Sodium Potassium Chloride Carbon Dioxide BUN Creatinine Estimated GFR BUN/Creatinine Ratio Glucose Lactate 1.2 Calcium Total Bilirubin AST ALT Alkaline Phosphatase Total Creatine Kinase CK-MB (CK-2) CK-MB (CK-2) Rel Index Troponin I Total Protein Albumin Globulin Albumin/Globulin Ratio Lipase SARS-CoV-2 (PCR) Negative [facility] Medical History Coronary artery disease involving [place] coronary artery of [place] heart without angina pectoris (10/2003) Diabetic neuropathy Essential hypertension Ischemic cardiomyopathy (2016) [place] (myocardial infarction) (10/2003) Mixed hyperlipidemia Myocardial infarction Nonrheumatic mitral valve regurgitation Peripheral edema Small bowel obstruction Small bowel obstruction (2016) Small bowel obstruction (11/20/17) Type 2 diabetes mellitus (06/30/12) Surgical History History of appendectomy (1973) History of cholecystectomy (1973) History of coronary artery stent placement (10/2003) Status post colonoscopy (2005) Status post coronary angiogram Status post epidural steroid injection (11/20/17) Status post exploratory laparotomy (11/20/17) Status post hysterectomy (1999) Family History Brother Colorectal cancer Mother CAD (coronary artery disease) Social History marital status: number of children: 5 household members: spouse lives independently: Yes caregiver/support person: No housing: house pets and animals: No education level: high school occupational status: other (Retired) 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 Anything that can be done with hands.) Tobacco & Substance Use Smoking Status: Never smoker Tobacco: How many years used: 0 quit status: quit date established (Never Started) second hand exposure: No alcohol intake: current substance use type: does not use Assessment & Plan Assessment and plan (1) Partial small bowel obstruction: Status: Acute Assessment & Plan narrative: 82-year-old woman with a history of multiple prior abdominal surgeries who is admitted with al small bowel obstruction. No peritonitis on exam mild leukocytosis and CT demonstrating a small-bowel obstruction without free air or free fluid. No indication for surgical intervention at this time. Proceed with conservative management. -Gastrografin small-bowel follow-through ordered this a.m. -NPO IV fluids -if no progression of contrast into the colon after 8 hours it is likely she will need operative intervention.
--- NOTE | 2022-09-05 11:04 | DI.RAD.S_ITS ---
PROCEDURE: XR GASTROGRAFIN CHALLENGE COMPARISON: None. INDICATIONS: SBO FINDINGS: Oral contrast is seen distending stomach lumen. Oral contrast material is also noted throughout small bowel loops. No definite contrast within colon loops is seen. No oral contrast extravasation or gross free air. IMPRESSION: 1. Marked oral contrast distension of stomach lumen which may indicate gastroparesis suggest clinical correlation. 2. No high-grade small-bowel obstruction. No oral contrast extravasation or gross free air. Dictated by: Darrius Joiner M.D. on 09/05/2022 at 16:07 Approved by: Darrius Joiner M.D. on 09/05/2022 at 16:08
--- NOTE | 2022-09-05 14:13 | CM.DANOTE ---
Patient is an 82 yo female who was admitted on 09/04/22 for Abd Pain. Pt has [facility] and [employer] for insurance and her PCP is Dr. Walt Ray. EMR was reviewed. Per MD, pt with hx of SBO and VT and admitted for partial SBO. Per Surgeon Consult, recommend NPO and conservative tx for now and no current indication of surgical intervention at this time. SW met bedside with pt and explained role and she confirms she lives in [place] with her spouse and is very active and independent at baseline. Pt drives and does not use DME for ambulation and denies any hx of HH or SNF. Pt has 5 adult children that are mostly local and many involved grandchildren. Pt has a hx of multiple SBOs, one needed exploratory lap but the others were managed with conservative tx. Pt does not anticipate any needs at d/c and preference is home with her spouse who is also quite healthy and active and able to provide assist and pt will also have adult children checking on her as well. Plan: SW to follow closely for progress with SBO conservatively for plan of home with supportive family when medically stable and any further identified discharge planning needs. ALFREDO Chavez Discharge Planning/Care Management CM Discharge Assessment Start: 09/05/22 14:12 Freq: Status: Active Protocol: Document 09/05/22 14:12 BF (Rec: 09/05/22 14:13 BF [id number]) Discharge Planning Assessment Assigned Nurse Staff Industrial ALFREDO Rodriguez DPOA/Assigned Designee Name spouse Luis Fernando Contact Information [phone] Advance Directives? Yes Advance Directives on File No: [place]/Valerie Macedo History Provided By Patient,Friend,Significant Other,Medical Record Has Patient been admitted in last 30 No days? Prior Living Arrangements House Household Members spouse Type of transporation used prior to Drives own vehicle admit Independent with ADL's Yes Is patient alert and oriented? Yes Caregiver for Another No Barriers to Discharge No Discharge Plan Home Transportation Arrangement Spouse can transport at d/c Referrals Initiated None needed Additional Comment Pending conservative tx progress Whiteboard Updated in Patient Room with Yes name and ext. # of Nurse Staff Industrial Review Status In Process Please Provide Date Initial DC 09/05/22 Assessment Was Performed Next Review Type Continued Stay Review
--- NOTE | 2022-09-05 14:19 | P.HP_ITS ---
History of Present Illness History of Present Illness Date Patient Seen: 09/05/22 Time Patient Seen: 14:20 Date of Onset of Symptoms: 09/04/22 Chief complaint: ABD pain Narrative: This is a very pleasant 82-year-old female with a past medical history of coronary artery disease, ischemic cardiomyopathy, hyperlipidemia and type 2 diabetes who has a history of recurrent small-bowel obstructions and presented to the ER yesterday with day of onset abdominal pain associated with nausea and no flatus.? Last bowel movement was yesterday with no flatus since.? Nauseous no emesis.? She is a history of prior small bowel obstruction requiring exploratory laparotomy [address] Vo.? She has had multiple episodes of partial small bowel obstruction which have resolved non operatively. ER workup demonstrated that she had a partial bowel obstruction at the anastomosis in the right abdomen. This correlates to her pain. Patient had a previous event in 2003 that she thought was a partial bowel obstruction and turned out that she had coronary artery disease in his stent was placed. She sees Dr. Sellers while on a regular basis and recently saw him and he started her on carvedilol. Patient has otherwise been in her usual state of health. In fact she just saw her PCP, Dr. Ray who felt she was doing well and hemoglobin A1c was 7.4. Patient recently saw Dr. Verito kumar as well. Note was reviewed Patient denies any bloody stools or diarrhea. Patient denies any fever or unintentional weight loss or weight gain. Patient denies any chest pain or shortness of breath or PND or orthopnea. Patient denies any lower extremity edema. She does take furosemide as needed for edema but has not had to do that recently. Her blood pressure has been good and she is been feeling okay and the carvedilol. Past medical history: Assessment 1. Coronary artery disease she had a stent placed in 2003 and has been followed by Cardiology, Dr. Sellers well since then Assessment 2. Ischemic cardiomyopathy with ejection fraction of 30% that started associated with her acute IN. she is remained stable. She had hyperkalemia with spironolactone and she is been unable to afford Entresto or Jardiance. Assessment 3. Hyperlipidemia, well-controlled with last LDL in the 70s Assessment 4. Type 2 diabetes on low-dose sulfonylurea with recent hemoglobin A1c 7.4 Assessment 5. Hypertension well-controlled Assessment 6. Obesity Current medications are simvastatin 40 mg daily; losartan 25 mg daily; glipizide ER 2.5 mg daily; carvedilol 12.5 mg twice daily; diclofenac 50 mg as needed; baby aspirin daily; Lasix as needed Allergies: Lisinopril and metformin Past surgical history: Bilateral tubal ligation Normal spontaneous vaginal deliveries x5 Open cholecystectomy 2017 she would a colonic resection for bowel obstruction Total vaginal hysterectomy without BSO Bilateral carpal tunnel surgery Health related behavior Does not smoke and never has Does not use alcohol Is not active Family history Mom had 4 heart attacks at 87 also had renal cell carcinoma status post nephrectomy Father of prostate cancer at 80 Patient had a brother who at 68 from colon cancer Another brother had prostate issues Sister is paralyzed from complication of a back surgery but otherwise healthy Social history: Patient has 5 children who are actively involved in her life. She is and lives with her here in and [facility]. Twelve point review of systems is negative other than HPI PFSH Medical History Coronary artery disease involving [place] coronary artery of [place] heart without angina pectoris (10/2003) Diabetic neuropathy Essential hypertension Ischemic cardiomyopathy (2015) [place] (myocardial infarction) (10/2003) Mixed hyperlipidemia Myocardial infarction Nonrheumatic mitral valve regurgitation Peripheral edema Small bowel obstruction Small bowel obstruction (2016) Small bowel obstruction (11/20/17) Type 2 diabetes mellitus (06/30/12) Surgical History History of appendectomy (1973) History of cholecystectomy (1973) History of coronary artery stent placement (10/2003) Status post colonoscopy (2005) Status post coronary angiogram Status post epidural steroid injection (11/20/17) Status post exploratory laparotomy (11/20/17) Status post hysterectomy (1999) Family History Brother Colorectal cancer Mother CAD (coronary artery disease) Social History marital status: number of children: 5 household members: spouse lives independently: Yes caregiver/support person: No housing: house pets and animals: No education level: high school occupational status: other (Retired) 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 Anything that can be done with hands.) Smoking Status: Never smoker Tobacco: How many years used: 0 quit status: quit date established (Never Started) second hand exposure: No alcohol intake: current substance use type: does not use Meds Home Medications and Allergies Home Medications Medication Instructions Recorded Confirmed Type ASPIRIN (Aspirin EC) 81 mg PO DAILY ##90 07/14/12 09/05/22 Rx Glucosamine Sulfate (GLUCOSAMINE) 1,000 mg PO BID ##0 02/02/13 09/05/22 History [[place] RED] 350 mg PO QDAY ##0 02/02/13 09/05/22 History Protandum 1 tab PO DAILY 03/14/19 09/05/22 History blood sugar diagnostic (OneTouch #100 ea 11/06/21 09/05/22 Rx Ultra Test strips) lancets 33 gauge #100 ea 11/06/21 09/05/22 Rx simvastatin 40 mg tablet 40 mg PO QPM #90 tabs 12/30/21 09/05/22 Rx diclofenac sodium 50 mg See Rx Instructions .Route 04/14/22 09/05/22 Rx tablet,delayed release .COMPLEX #90 tabs glipizide 2.5 mg tablet, extended 2.5 mg PO DAILY #90 tabs 06/15/22 09/05/22 Rx release 24 hr carvedilol 12.5 mg tablet 12.5 mg PO BID 08/31/22 09/05/22 History furosemide 20 mg tablet 20 mg PO PRN PRN swelling 08/31/22 09/05/22 History Allergies Allergy/AdvReac Type Severity Reaction Status Date / Time lisinopril AdvReac Intermediate cough, Verified 08/31/22 13:35 hyperkalemia metformin AdvReac Intermediate alopecia Verified 08/31/22 13:35 Exam Vital Signs (past 8 hours): - 09/05/22 08:00 09/05/22 08:30 09/05/22 12:23 Temperature 99 F 98.3 F Pulse Rate 71 69 Respiratory Rate 18 18 Blood Pressure 138/56 L 145/61 H Pulse Oximetry 95 99 Oxygen Delivery Method Room Air Oxygen Flow Rate 0 0 Oxygen Delivery Method Room Air Oxygen Flow Rate 0 Narrative Exam Narrative: Patient is sleepy due to recent morphine delivery but she awakens is alert and oriented x3. She is resting comfortably in hospital bed and appears younger than stated age HEENT is unremarkable Neck: Supple without adenopathy or thyromegaly Chest: Clear to auscultation without wheezes rhonchi or crackles Cor: Regular rate and rhythm with distant S1-S2 Abdomen: Positive bowel sounds, obese, distended, bowel sounds left upper left lower quadrant but absent in the right lower quadrant slightly tympanitic: Mild tenderness in the right lower quadrant and lesser so on the left lower quadrant. No tenderness in the bilateral upper quadrants. No evidence of organomegaly. No rebound or guarding Extremities: No edema pulses intact Neurologic exam nonfocal Objective Labs 09/04/22 21:41 09/04/22 21:41 Labs: Laboratory Results - last 24 hr 09/04/22 09/04/22 09/04/22 21:41 21:41 21:41 WBC 12.4 H RBC 4.91 Hgb 14.5 Hct 43.8 MCV 89.3 MCH 29.5 MCHC 33.1 RDW 14.0 Plt Count 217 Neut % (Auto) 75.1 H Lymph % (Auto) 15.8 L [place] % (Auto) 7.5 Eos % (Auto) 1.0 L Baso % (Auto) 0.6 Neut # (Auto) 9300 H Lymph # (Auto) 2000 [place] # (Auto) 900 Eos # (Auto) 100 Baso # (Auto) 100 Sodium 137 Potassium 4.9 Chloride 101 Carbon Dioxide 26 BUN 32 H Creatinine 0.83 Estimated GFR > 60 BUN/Creatinine Ratio 38.6 H Glucose 150 H Lactate Calcium 9.7 Total Bilirubin 0.8 AST 44 H ALT 40 H Alkaline Phosphatase 75 Total Creatine Kinase 121 CK-MB (CK-2) 2.12 CK-MB (CK-2) Rel Index 1.8 Troponin I < 0.012 Total Protein 8.2 Albumin 4.6 Globulin 3.6 Albumin/Globulin Ratio 1.3 Lipase 106 SARS-CoV-2 (PCR) 09/04/22 09/05/22 21:41 01:33 WBC RBC Hgb Hct MCV MCH MCHC RDW Plt Count Neut % (Auto) Lymph % (Auto) [place] % (Auto) Eos % (Auto) Baso % (Auto) Neut # (Auto) Lymph # (Auto) [place] # (Auto) Eos # (Auto) Baso # (Auto) Sodium Potassium Chloride Carbon Dioxide BUN Creatinine Estimated GFR BUN/Creatinine Ratio Glucose Lactate 1.2 Calcium Total Bilirubin AST ALT Alkaline Phosphatase Total Creatine Kinase CK-MB (CK-2) CK-MB (CK-2) Rel Index Troponin I Total Protein Albumin Globulin Albumin/Globulin Ratio Lipase SARS-CoV-2 (PCR) Negative Assessment & Plan Assessment & Plan narrative: 82 year old itzel female with a history of coronary artery disease, ischemic cardiomyopathy, type 2 diabetes, hyperlipidemia, hypertension with bowel obstruction Assessment 1. Patient is admitted to the hospital. Surgery is consulted and appreciate their input. Patient is undergoing a Gastrografin study. She will remain NPO will hold her medications for now currently her vital signs are stable. Will continue with morphine as needed for pain. Will continue with IV fluids at 125 cc an hour recheck labs in the morning. Hopefully things will resolve with a Gastrografin. Assessment 2. Coronary artery disease without any acute symptoms but had atypical presentation 20 years ago at onset. CK and troponin were negative on admit. We will continue to monitor Continue outpatient medications when she is tolerating p.o.. Will monitor her blood pressure and heart rate and give IV metoprolol should these increase Assessment 3. Type 2 diabetes on low-dose glyburide Plan: Will hold this while she is NPO. Will do CBGS q.6 hours and gives low algorithm sliding scale insulin Assessment 4. Ischemic cardiomyopathy without any current issues Plan: We will monitor I's and O's closely watch for fluid overload. Assessment 5. Hyperlipidemia Plan: Start outpatient medications once tolerating p.o. Assessment 6. Hypertension currently stable. Will continue to monitor Code status is DNR. Patient does not want any heroics. 75 minutes spent with patient reviewing her chart discussing with nursing meeting with family discussing her history formulating a plan and documentation. Anticipate 2 night stay given presenting complaint DVT prophylaxis with SCDs due to possibility of surgical procedure. Will start Lovenox when able.
[2022-09-05] MEDS: ONDANSETRON 4 MG ODT PO (16:12)
--- NOTE | 2022-09-05 20:27 | PC.NURSE ---
1300: Assumed care of patient, she is resting quietly w/ eyes closed. continues w/ NS at 125/hour. had just received morphine and zofran. gastrograph contrast was given, and test at 1500. patient nauseated and 100 ml green emesis noted in basin. remains NPO. 1700: tolerated amb hallway w/ SBA. reports this helped her pain. 1800: nausated, 50cc greenish bile liquid emesis. MD notified of above and how the day has gone. anticipate surgery tomorrow. family members are here and need alot of reassurances that she is given any and every med possible that could help. patient is sitting on EOB and does not look comfortable but responded well to this RN rubbing her back and put a cold wet washcloth on her neck and face. report to ROMEO RN.
[2022-09-05] MEDS: HYDROMORPHONE 0.5 MG INJ IV (20:59)
[2022-09-06] VITALS (15 sets, daily range): BP systolic 96–177; BP diastolic 46–92; PULSE 69–100; RESP 10–88; TEMP 36.2–37.6; O2SAT 85–97; BMI 30.4
[2022-09-06] MEDS: HYDROMORPHONE 0.5 MG INJ IV ×8 (00:10→21:28)
[2022-09-06] MEDS: ONDANSETRON 4 MG/2 ML INJ IV ×3 (00:10→09:34)
[2022-09-06 05:25] LABS: Add Manual Diff / Slide Review NO; Basophils Absolute Auto 0 /uL (0-100); Basophils Percent Auto 0.2 % (0-2); Eosinophils Absolute Auto 0 /uL (0-450); Hematocrit 42.3 % (36-46); Lymphocytes Absolute Auto 700 /uL (1100-4500); Mean Corpuscular HGB Conc 33.2 % (30-36); Mean Corpuscular Hemoglobin 29.7 PG (26-34); Mean Corpuscular Volume 89.5 fL (80-100); Monocytes Absolute Auto 700 /uL (0-900); Monocytes Percent Auto 16.5 % (3-14); Neutrophils Absolute Auto 2900 /uL (1500-7000); Neutrophils Percent Auto 66.3 % (50-75); Platelet Count 209 X10^3/uL (150-400); Red Blood Cell Count 4.72 X10^6/uL (4.0-5.2); Red Cell Distribution Width 14.4 % (11.6-14.8); White Blood Cell Count 4.4 X10^3/uL (4.5-11.0)
[2022-09-06 05:33] LABS: Alanine Aminotransferase 28 IU/L (<35); Albumin 3.7 g/dL (3.5-5.0); Albumin Globulin Ratio 1.2 (1.0-2.8); Alkaline Phosphatase 59 U/L (38-126); Aspartate Aminotransferase 39 IU/L (14-36); BUN Creatinine Ratio 26.1 (6-22); Bilirubin Total 0.5 mg/dL (0.2-1.3); Blood Urea Nitrogen 23 mg/dL (7-17); Calcium 8.1 mg/dL (8.4-10.2); Carbon Dioxide 27 mmol/L (22-32); Chloride 107 mmol/L (98-107); Estimated Glomerular Filt Rate > 60 mL/min (>60); Globulin 3.2 g/dL (1.7-4.1); Glucose 200 mg/dL (80-110); HEMOLYSIS < 15 (0-50); Potassium 4.3 mmol/L (3.4-5.1); Sodium 141 mmol/L (137-145); Total Protein 6.9 g/dL (6.3-8.2)
[2022-09-06 05:39] LABS: NT-proBNP (BNP-Adult 18+) 499 pg/mL (<450)
[2022-09-06] MEDS: SODIUM CHLORIDE 0.9% 1,000 ML 125 ML IV ×3 (07:33→18:54)
--- NOTE | 2022-09-06 07:57 | DI.RAD.S_ITS ---
PROCEDURE: XR ABDOMEN 1V INDICATIONS: f/u gastrografin challenge TECHNIQUE: Gastrografin administered yesterday COMPARISON: [facility], CR, XR GASTROGRAFIN CHALLENGE, 09/05/2022, 15:28. [facility], CR, XR ABDOMEN 1V, 11/20/2017, 3:05. FINDINGS: Surgical changes and devices: None. Bowel: Gastrografin been administered. There is Gastrografin throughout a distended stomach multiple distended loops of small bowel. No contrast is seen in the right colon Soft tissues: No suspicious abdominal calcifications. Visualized solid organ contours appear normal in size. Bones: No suspicious bony lesions. IMPRESSION: Contrast the stomach and small bowel, however no definite contrast seen colon Dictated by: Marcelino Vizcarra M.D. on 09/06/2022 at 8:39 Approved by: Marcelino Vizcarra M.D. on 09/06/2022 at 8:41
[2022-09-06] MEDS: INSULIN REGULAR 100 UNIT/ML 3 ML VIAL SUBCUT (08:50)
--- NOTE | 2022-09-06 10:34 | P.PN_ITS ---
Subjective Subjective Date Patient Seen: 09/06/22 Time Patient Seen: 10:34 Interval history: Episode of emesis worsening abdominal pain and nausea. Gastrografin challenge demonstrates no contrast within the colon. Exam Vital Signs (past 8 hours): - 09/06/22 05:19 09/06/22 05:24 09/06/22 09:00 Temperature 97.6 F 98.6 F Pulse Rate 100 H 98 H 83 Respiratory Rate 17 16 Blood Pressure 170/84 H 156/70 H 162/79 H Pulse Oximetry 93 85 L Oxygen Delivery Method Room Air Oxygen Flow Rate 0 Narrative Exam Narrative: General elderly woman alert uncomfortable Chest nonlabored respiration Abdomen tender moderately distended Objective Labs 09/06/22 04:50 09/06/22 04:50 Labs: Laboratory Results - last 24 hr 09/06/22 09/06/22 09/06/22 04:50 04:50 04:50 WBC 4.4 L D RBC 4.72 Hgb 14.0 Hct 42.3 MCV 89.5 MCH 29.7 MCHC 33.2 RDW 14.4 Plt Count 209 Neut % (Auto) 66.3 Lymph % (Auto) 17.0 L [place] % (Auto) 16.5 H Eos % (Auto) 0.0 L Baso % (Auto) 0.2 Neut # (Auto) 2900 Lymph # (Auto) 700 L [place] # (Auto) 700 Eos # (Auto) 0 Baso # (Auto) 0 Sodium 141 Potassium 4.3 Chloride 107 Carbon Dioxide 27 BUN 23 H Creatinine 0.88 Estimated GFR > 60 BUN/Creatinine Ratio 26.1 H Glucose 200 H Calcium 8.1 L Total Bilirubin 0.5 AST 39 H ALT 28 Alkaline Phosphatase 59 NT-Pro-B Natriuret Pep 499 H Total Protein 6.9 Albumin 3.7 Globulin 3.2 Albumin/Globulin Ratio 1.2 PFSH Medical History Coronary artery disease involving [place] coronary artery of [place] heart without angina pectoris (10/2003) Diabetic neuropathy Essential hypertension Ischemic cardiomyopathy (2015) [place] (myocardial infarction) (10/2003) Mixed hyperlipidemia Myocardial infarction Nonrheumatic mitral valve regurgitation Peripheral edema Small bowel obstruction Small bowel obstruction (2016) Small bowel obstruction (11/20/17) Type 2 diabetes mellitus (06/30/12) Surgical History History of appendectomy (1973) History of cholecystectomy (1973) History of coronary artery stent placement (10/2003) Status post colonoscopy (2005) Status post coronary angiogram Status post epidural steroid injection (11/20/17) Status post exploratory laparotomy (11/20/17) Status post hysterectomy (1999) Family History Brother Colorectal cancer Mother CAD (coronary artery disease) Social History marital status: number of children: 5 household members: spouse lives independently: Yes caregiver/support person: No housing: house pets and animals: No education level: high school occupational status: other (Retired) 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 Anything that can be done with hands.) Smoking Status: Never smoker Tobacco: How many years used: 0 quit status: quit date established (Never Started) second hand exposure: No alcohol intake: current substance use type: does not use Assessment & Plan Assessment and plan (1) Bowel obstruction: Status: Acute Assessment & Plan narrative: 82-year-old woman with a history of multiple prior abdominal surgeries admitted with a small-bowel obstruction. I had a lengthy discussion with the patient and her family today in regards to the status of her bowel obstruction. I explained that the Gastrografin challenge demonstrates no movement of contrast out of the small bowel and she remains distended and tender on exam. At this point my recommendation is to proceed with an exploratory laparotomy possible bowel resection as she is unlikely to improve with further non operative management. She has multiple perioperative risk factors including congestive heart failure, last EF 35-40%, insulin dependent diabetes, advanced age, and multiple prior abdominal surgeries. Operative risks including hemorrhage, infection, enterotomy, anastomotic leak, damage to surrounding structures, stroke, heart attack and were discussed. Her questions have been answered and she is in agreement with this plan.
--- NOTE | 2022-09-06 10:43 | PC.NURSE ---
1000--Dr Du here to see pt; spoke w/ pt and family (, daughter, granddaughters); pt will be going to OR for exploratory lap this morning; questions answered and consent signed
--- NOTE | 2022-09-06 11:24 | PC.NURSE ---
Addendum entered by Paulina Coelho R.N. 09/06/22 11:25: family at bedside Original Note: 1110--pt to OR via bed; telemetry remains at bedside
[2022-09-06] MEDS: LACTATED RINGERS 1,000 ML 42 ML IV (11:25)
[2022-09-06] MEDS: PIPERACILLIN/TAZO 3.375 GM in SODIUM CHLORIDE 0.9% 100 ML IV (11:44)
--- NOTE | 2022-09-06 11:53 | CM.DPC ---
DCP/continued: Patient off floor for surgery today for SBO with Dr. Du. P: CM team to follow up after surgery to assist with d/c planning if needed. YUE
--- NOTE | 2022-09-06 12:05 | SUR.OPER ---
Supine on padded OR bed, head on pillow, arms secured on padded arm boards at <90 degrees abduction, legs uncrossed, safety belt at thigh, tape over blanket over lower legs. Gel pad under bilateral feet and gel pad placed between patients posterior upper leg and urinary catheter tubing. Patients glasses placed in black glass case and left with BARIATRIC PROGRAM COORDINATOR in PACU.
--- NOTE | 2022-09-06 13:13 | P.OP_ITS ---
Operative Date/Time/Diagnoses Date of procedure: 09/06/22 Time of procedure: 13:13 Pre-op diagnosis: Small-bowel obstruction Post-op diagnosis: same Procedure & Clinicians Procedure: Exploratory laparotomy Lysis of adhesions Same procedure as scheduled: Yes Indications: 82-year-old woman with multiple prior abdominal surgeries admitted for small- bowel obstruction. Gastrografin challenge was performed and there was note of transit of contrast into the colon after 24 hours. She had worsening abdominal pain and with the failed Gastrografin study we proceeded to the operating room. Surgeon: Shahzad Du Anesthesia Type: General Operative Notes Findings: Dilated loops of small bowel. Multiple adhesions in the pelvis. 20 cm section ischemic small bowel which improved with detorsion Specimen(s): none sent Estimated Blood Loss (mL): 20 Procedure in detail: Patient was brought to the operating placed supine on the table. General anesthesia was induced she was intubated with an endotracheal tube. Nasogastric tube was placed with drainage of several L of fecalized output. She received 3.375 g of Zosyn. Time-out was performed. Perez catheter was sterilely placed. She was prepped and draped in sterile fashion. The previous midline incision was opened. The subcutaneous tissue was divided. Fascia was elevated sharply incised the abdomen was entered atraumatically. Upon entry there were multiple dilated loops of small bowel there was no succus. There were multiple adhesions between the small bowel and the anterior abdominal wall. The adhesions were taken down with sharp dissection. There were dense adhesions within the pelvis and the right lower quadrant where a transition point was noted. The mid small bowel was ischemic, dusky, purple but without necrosis. The bowel was de torsed and irrigated with several L of sterile saline. The bowel was then run from the terminal ileum to the ligament of Treitz. There was a serosal tear in the small bowel which was imbricated with silk suture. We waited 15 minutes and then reassessed the perfusion of the small bowel. The previously ischemic intestine had pinked up significantly and stimulation of the bowel induced peristalsis. Its appearance was not perfect but significantly better. I considered the alternative, small bowel resection, but it was not deemed necessary and carried the risk of anastamotic leak in this patient with poor cardiac function. The abdomen was then irrigated with several liters of sterile saline. The bowel was returned to the abdomen. The fascia was then closed in a running fashion using 1. PDS suture. The subcutaneous tissue was reapproximated with 3-0 Vicryl and the skin closed with meek. She tolerated the procedure well was extubated and transferred to recovery in stable condition. Complications: none Post-operative Condition: stable Disposition: Acute Care
--- NOTE | 2022-09-06 15:02 | P.PN_ITS ---
Subjective Subjective Date Patient Seen: 09/06/22 Time Patient Seen: 15:02 Interval history: Patient underwent exploratory laparotomy with lysis of adhesions that showed ischemic bowel at the site release. The bowel pinked up immediately after adhesions removed. Patient did not have to have a resection. Patient currently has a NG tube in place. She received a total of 5 mg of metoprolol while in the OR. She has recently received Dilaudid and she is resting comfortably. The Gastrografin challenge showed no emptying of the stomach and almost 4 L of fluid was obtained at the time of surgery out of her stomach. She had a miserable night last night with lots of pain and nausea. I had ordered Dilaudid which seems to be more effective than the morphine. Otherwise she denies any complaints of chest pain or shortness of breath. Review of systems negative other than above, 12 point review of systems Patient with no flatus and passing no stool or liquid No hematemesis No chest pain or shortness of breath or PND or orthopnea or palpitations Exam Vital Signs (past 8 hours): - 09/06/22 09:00 09/06/22 11:23 09/06/22 13:06 Temperature 98.6 F 99.4 F 97.1 F L Pulse Rate 83 100 H 70 Respiratory Rate 16 88 H 14 Blood Pressure 162/79 H 177/92 H 134/49 L Pulse Oximetry 85 L 96 Oxygen Delivery Method Room Air Nasal Cannula Oxygen Flow Rate 2 09/06/22 13:11 09/06/22 13:16 09/06/22 13:25 Temperature Pulse Rate 69 69 71 Respiratory Rate 16 14 15 Blood Pressure 125/48 L 115/54 L 119/53 L Pulse Oximetry 97 96 97 Oxygen Delivery Method Nasal Cannula Nasal Cannula Nasal Cannula Oxygen Flow Rate 2 2 2 Oxygen Delivery Method Nasal Cannula Oxygen Flow Rate 2 Narrative Exam Narrative: Afebrile vital signs are stable. Patient is on 2 L nasal cannula since recovering from OR which was approximately 1-1/2 hours ago Objective Labs 09/06/22 04:50 09/06/22 04:50 Labs: Laboratory Results - last 24 hr 09/06/22 09/06/22 09/06/22 04:50 04:50 04:50 WBC 4.4 L D RBC 4.72 Hgb 14.0 Hct 42.3 MCV 89.5 MCH 29.7 MCHC 33.2 RDW 14.4 Plt Count 209 Neut % (Auto) 66.3 Lymph % (Auto) 17.0 L [place] % (Auto) 16.5 H Eos % (Auto) 0.0 L Baso % (Auto) 0.2 Neut # (Auto) 2900 Lymph # (Auto) 700 L [place] # (Auto) 700 Eos # (Auto) 0 Baso # (Auto) 0 Sodium 141 Potassium 4.3 Chloride 107 Carbon Dioxide 27 BUN 23 H Creatinine 0.88 Estimated GFR > 60 BUN/Creatinine Ratio 26.1 H Glucose 200 H Calcium 8.1 L Total Bilirubin 0.5 AST 39 H ALT 28 Alkaline Phosphatase 59 NT-Pro-B Natriuret Pep 499 H Total Protein 6.9 Albumin 3.7 Globulin 3.2 Albumin/Globulin Ratio 1.2 PFSH Medical History Coronary artery disease involving [place] coronary artery of [place] heart without angina pectoris (10/2003) Diabetic neuropathy Essential hypertension Ischemic cardiomyopathy (2015) [place] (myocardial infarction) (10/2003) Mixed hyperlipidemia Myocardial infarction Nonrheumatic mitral valve regurgitation Peripheral edema Small bowel obstruction Small bowel obstruction (2016) Small bowel obstruction (11/20/17) Type 2 diabetes mellitus (06/30/12) Surgical History History of appendectomy (1973) History of cholecystectomy (1973) History of coronary artery stent placement (10/2003) Status post colonoscopy (2005) Status post coronary angiogram Status post epidural steroid injection (11/20/17) Status post exploratory laparotomy (11/20/17) Status post hysterectomy (1999) Family History Brother Colorectal cancer Mother CAD (coronary artery disease) Social History marital status: number of children: 5 household members: spouse lives independently: Yes caregiver/support person: No housing: house pets and animals: No education level: high school occupational status: other (Retired) 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 Anything that can be done with hands.) Smoking Status: Never smoker Tobacco: How many years used: 0 quit status: quit date established (Never Started) second hand exposure: No alcohol intake: current substance use type: does not use Assessment & Plan Assessment & Plan narrative: 82 year old itzel female with a history of coronary artery disease, ischemic cardiomyopathy, type 2 diabetes, hyperlipidemia, hypertension with bowel obstruction Assessment 1. Patient is admitted to the hospital.? Surgery is consulted and appreciate their input.? Patient failed Gastrografin challenge and went to the OR for exploratory laparotomy and underwent lysis of adhesions and ischemic a reas of bowel improved immediately so resection was not done. Patient did well during surgery receive 5 mg of IV metoprolol. Currently has NG tube. Postop orders per surgery. NPO except for carvedilol orally Assessment 2. Coronary artery disease without any acute symptoms but had atypical presentation 20 years ago at onset.? CK and troponin were negative on admit.? We will continue to monitor Continue outpatient medications when she is tolerating p.o. Received metoprolol during surgery and will start oral carvedilol and resume remaining of medications once she is taking p.o. Assessment 3.? Type 2 diabetes on low-dose glyburide Plan: Will hold this while she is NPO.? Will do CBGS q.6 hours and gives low algorithm sliding scale insulin Assessment 4.? Ischemic cardiomyopathy without any current issues Plan:? We will monitor I's and O's closely watch for fluid overload. BNP was normal today. Patient showing no signs of fluid overload but we will continue to monitor closely. Patient did have 3 L of fluid out in her stomach today in surgery. Assessment 5. Hyperlipidemia Plan: Start outpatient medications once tolerating p.o. Assessment 6. Hypertension currently stable.? Will continue to monitor Assessment 7. FEN: Continue per surgery Assessment 8. DVT prophylaxis Plan start Lovenox when okay with surgery. Code status is DNR.? Patient does not want any heroics. 45 minutes spent with patient reviewing her chart discussing with nursing meeting with family discussing her history formulating a plan and documentation.
--- NOTE | 2022-09-06 15:52 | PC.NURSE ---
1402--pt back from OR, awake but drowsy; NG to right nare connected to LIWS; light felix drainage noted; aquacel to midline abd dressing CDI; abd binder on; reconnected to telemetry and VS obtained; SCDs on; Dr Du came and spoke with patient and family
[2022-09-07] VITALS (11 sets, daily range): BP systolic 104–137; BP diastolic 52–63; PULSE 88–110; RESP 15–19; TEMP 36.7–37.8; O2SAT 92–94
--- NOTE | 2022-09-07 | DI.US.S_ITS ---
PROCEDURE: US RENAL COMPLETE INDICATIONS: MERCED TECHNIQUE: Real-time scanning was performed of the kidneys and bladder, with image documentation. COMPARISON: [facility], CT, CT ABDOMEN PELVIS W CON, 09/04/2022, 22:32. FINDINGS: Kidneys: Challenging evaluation due to patient body habitus and inability to tolerate repositioning. Right kidney measures approximately 10.4 cm long, may be an over estimation; left kidney measures approximately 8.9 cm long. Right renal cortical thickness is 1.6 cm; left renal cortical thickness approximately 1.2 centimeters. Left kidney is overall not well visualized. No hydronephrosis. No stones identified sonographically. Appearance of a small right kidney cortical cyst however no definite correlate identified on recent CT, possibly artifact. Bladder: Decompressed with a Perez catheter and not well evaluated. Miscellaneous: No free pelvic fluid. IMPRESSION: Technically challenging exam due to patient body habitus and difficulty with positioning. No hydronephrosis. Dictated by: Soto Contreras M.D. on 09/07/2022 at 10:07 Approved by: Soto Contreras M.D. on 09/07/2022 at 10:14
[2022-09-07] MEDS: HYDROMORPHONE 0.5 MG INJ IV ×4 (00:13→11:18)
[2022-09-07] MEDS: SODIUM CHLORIDE 0.9% 1,000 ML 125 ML IV ×3 (03:05→19:25)
--- NOTE | 2022-09-07 03:55 | PC.NURSE ---
Pt has been b/p was 96/52 with a map of 65 around 1999, carvedilol her Dr. Du aware since he came in to check on pt. Pt BT are absent, minimal output from NGT. pt repositioned every 2 hours. b/p improving and taking dilaudid IVP 0.5 mg frequently.
--- NOTE | 2022-09-07 04:35 | PC.NURSE ---
pt pulled out NGT, this nurse tried to put NGT back in, NGT coiled on her throat, pt refusing to have NGT back in. Pt denies nausea/vomiting, had >100 ml on. pt urine has been low 300 ml dark/yellow. Dr. Du awared of all this, no new orders received. Dr. Du said if ok to leave NGT out for now.
[2022-09-07 05:21] LABS: BUN Creatinine Ratio 20.3 (6-22); Blood Urea Nitrogen 42 mg/dL (7-17); Calcium 7.1 mg/dL (8.4-10.2); Carbon Dioxide 26 mmol/L (22-32); Chloride 106 mmol/L (98-107); Estimated Glomerular Filt Rate 23 mL/min (>60); Glucose 198 mg/dL (80-110); HEMOLYSIS < 15 (0-50); Potassium 4.7 mmol/L (3.4-5.1); Sodium 141 mmol/L (137-145)
[2022-09-07 05:36] LABS: Hemoglobin 13.2 g/dL (12.0-16.0); Mean Corpuscular HGB Conc 32.1 % (30-36); Mean Corpuscular Hemoglobin 29.2 PG (26-34); Mean Corpuscular Volume 91.1 fL (80-100); Platelet Count 206 X10^3/uL (150-400); Red Cell Distribution Width 14.6 % (11.6-14.8); White Blood Cell Count 10.7 X10^3/uL (4.5-11.0)
[2022-09-07 05:38] LABS: Add Manual Diff / Slide Review YES
[2022-09-07 06:47] LABS: Neutrophils Absolute Manual 7062 /uL (3000-5900); Total Cells Counted 100
[2022-09-07 06:48] LABS: RBC Morphology Normal Morphology
--- NOTE | 2022-09-07 08:40 | PM.PN.1 ---
Subjective Subjective Date Patient Seen: 09/07/22 Time Patient Seen: 08:41 Interval history: Patient accidentally tore out an NG tube last night. She is still having pain and through the course of the day became more nauseous. A NG tube was placed and they obtained a 1000 cc of gastric fluid. She is having minimal bowel sounds. She is being treated with Dilaudid for pain in his making her very somnolent. She is not been moving or or really doing much today. Patient denies any shortness of breath. She denies any chest pain. She is tender in her abdomen. She is still feeling significantly nauseous Review of systems is otherwise-12 point Exam Vital Signs (past 8 hours): - 09/07/22 02:06 09/07/22 04:00 09/07/22 08:00 Temperature 99.6 F 98.5 F Pulse Rate 110 H 102 H Respiratory Rate 19 18 Blood Pressure 131/61 125/58 L 136/63 Pulse Oximetry 92 93 Oxygen Flow Rate 2 Oxygen Delivery Method Nasal Cannula Oxygen Flow Rate 2 Narrative Exam Narrative: T-max 100?. Currently afebrile vital signs are stable. Blood pressure 120s to 130s over 60s. O2 sat on 2 L nasal cannula is 93% patient had episode of low blood pressure 90 systolic last night. Her carvedilol was held HEENT shows mucous membranes moist and pink Neck: Supple Chest: Clear to auscultation with decreased breath sounds bibasilar but no wheezes or crackles or rhonchi Cor: Regular rate and rhythm with distant S1-S2 Abdomen: Distended, tender, no guarding or rebound she does have a binder in place no bowel sounds Extremities: No edema no peripheral edema or ankle edema. Actually improved Objective Labs 09/07/22 04:30 09/07/22 04:30 Labs: Laboratory Results - last 24 hr 09/07/22 09/07/22 04:30 04:30 WBC 10.7 D RBC 4.50 Hgb 13.2 Hct 41.0 MCV 91.1 MCH 29.2 MCHC 32.1 RDW 14.6 Plt Count 206 Neut % (Auto) Not Reportable Lymph % (Auto) Not Reportable [place] % (Auto) Not Reportable Eos % (Auto) Not Reportable Baso % (Auto) Not Reportable Lymph # (Auto) Not Reportable [place] # (Auto) Not Reportable Baso # (Auto) Not Reportable Total Counted 100 Seg Neutrophils % 56.0 Band Neutrophils % 10.0 H Lymphocytes % (Manual) 19.0 L Monocytes % (Manual) 14.0 H Metamyelocytes % 1.0 H Neutrophils # (Manual) 7062 H RBC Morphology Normal morphology Sodium 141 Potassium 4.7 Chloride 106 Carbon Dioxide 26 BUN 42 H Creatinine 2.07 H Estimated GFR 23 L BUN/Creatinine Ratio 20.3 Glucose 198 H Calcium 7.1 L PFSH Medical History Coronary artery disease involving [place] coronary artery of [place] heart without angina pectoris (10/2003) Diabetic neuropathy Essential hypertension Ischemic cardiomyopathy (2015) [place] (myocardial infarction) (10/2003) Mixed hyperlipidemia Myocardial infarction Nonrheumatic mitral valve regurgitation Peripheral edema Small bowel obstruction Small bowel obstruction (2016) Small bowel obstruction (11/20/17) Type 2 diabetes mellitus (06/30/12) Surgical History History of appendectomy (1973) History of cholecystectomy (1973) History of coronary artery stent placement (10/2003) Status post colonoscopy (2005) Status post coronary angiogram Status post epidural steroid injection (11/20/17) Status post exploratory laparotomy (11/20/17) Status post hysterectomy (1999) Family History Brother Colorectal cancer Mother CAD (coronary artery disease) Social History marital status: number of children: 5 household members: spouse lives independently: Yes caregiver/support person: No housing: house pets and animals: No education level: high school occupational status: other (Retired) 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 Anything that can be done with hands.) Smoking Status: Never smoker Tobacco: How many years used: 0 quit status: quit date established (Never Started) second hand exposure: No alcohol intake: current substance use type: does not use Assessment & Plan Assessment & Plan narrative: 82-year-old female admitted for bowel obstruction that failed conservative treatment she was taken to the OR for lysis of adhesion and had some ischemic bowel which quickly pinked up after lysis of adhesion. 1. Small-bowel obstruction. Postop day 1. Plan: Continue per surgery FEN per surgery We will recheck her kidney function and if creatinine continues at 2 or higher we will hold the Toradol. If there has been some improvement then will consider Toradol otherwise we will switch from Dilaudid to the morphine. Dilaudid is causing too much sedation. Will continue with Zofran and Reglan for nausea Continue with NG tube Labs in a.m. 2. Acute kidney injury. GFR is now in the 20s. This is new. Ultrasound was poor quality due to body habitus and positioning difficulty due to recent surgery. No obvious obstruction or abnormality. I am concerned about possible ischemic event with hypotension or poor perfusion. We will continue to monitor eyes and nose but need to be judicious about IV hydration due to history of systolic heart failure with ejection fraction 35-40. Will avoid nephrotoxic medications. Likely not give Toradol Assessment 3. Systolic congestive heart failure with no acute exacerbation. Patient on oxygen now but I think this is due to sedation Plan: Continue Coreg. Monitor fluid status. Will go ahead and check BNP in the morning. Assessment 4. Type 2 diabetes off glipizide Plan: Continue with sliding scale insulin and CBGS q.a.c. and q.h.s. Assessment 5. Hyperlipidemia Plan: Continue simvastatin DVT prophylaxis Start Lovenox per surgery 45 minutes spent with patient today discussing with nursing, family, reviewing chart, formulating a plan and documentation
[2022-09-07] MEDS: ONDANSETRON 4 MG/2 ML INJ IV ×2 (11:09→14:52)
[2022-09-07] MEDS: INSULIN REGULAR 100 UNIT/ML 3 ML VIAL SUBCUT ×2 (12:02→18:31)
--- NOTE | 2022-09-07 12:11 | PT-IP ANOTE ---
Addendum entered and electronically signed by Madina Gonzalez PT 09/07/22 15:22: Attempted to see pt again this PM but she is acutely ill-appearing, drowsy, and not able to participate with PT. Will follow up again at next service date - Wednesday earliest. Original Note: Received PT orders and completed chart review. Pt was admitted with SBO and underwent exploratory laparotomy with HEATH yesterday. Attempted to meet with pt who was not able to maintain wakefulness long enough to meaningfully participate with PT. Pt's daughter was in the room who confirmed pt is independent at baseline and lives with her spouse, Luis Fernando, in a single level home with single step to enter. PT spoke with RN and asked her to call if pt's alertness improved or if she had any mobility related needs. Will follow up when pt is more appropriate for PT eval.
--- NOTE | 2022-09-07 13:55 | CM.DPC ---
DCP Cont: Per MD, pt tolerated surgical procedure well and no resection was needed and had NGT but pt pulled it out and Surgeon confirmed alright to leave it out. Kidney function is poor today and pt not yet medically stable to discharge. PT ordered and pending as attempted to do bedside eval and pt too drowsy to remain awake long enough but Dtr was bedside and confirms she is independent at baseline with supportive spouse. PT will attempt again later. Plan: SW to follow for likely plan of home with spouse and lots of local supportive family and any PT recommendations to r/o HH. ALFREDO Chavez
--- NOTE | 2022-09-07 16:03 | P.PN_ITS ---
Subjective Subjective Date Patient Seen: 09/07/22 Time Patient Seen: 16:04 Interval history: Vilma continues to experience nausea and abdominal discomfort. Exam Vital Signs (past 8 hours): - 09/07/22 09:00 09/07/22 12:10 09/07/22 14:30 Temperature 100.0 F H 99.4 F Pulse Rate 102 H 104 H 88 Respiratory Rate 16 16 Blood Pressure 136/63 127/55 L 119/61 Pulse Oximetry 92 93 Oxygen Flow Rate 0 Oxygen Delivery Method Nasal Cannula Oxygen Flow Rate 0 Narrative Exam Narrative: Distended Tender to palpation Objective Labs 09/07/22 04:30 09/07/22 04:30 Labs: Laboratory Results - last 24 hr 09/07/22 09/07/22 04:30 04:30 WBC 10.7 D RBC 4.50 Hgb 13.2 Hct 41.0 MCV 91.1 MCH 29.2 MCHC 32.1 RDW 14.6 Plt Count 206 Neut % (Auto) Not Reportable Lymph % (Auto) Not Reportable [place] % (Auto) Not Reportable Eos % (Auto) Not Reportable Baso % (Auto) Not Reportable Lymph # (Auto) Not Reportable [place] # (Auto) Not Reportable Baso # (Auto) Not Reportable Total Counted 100 Seg Neutrophils % 56.0 Band Neutrophils % 10.0 H Lymphocytes % (Manual) 19.0 L Monocytes % (Manual) 14.0 H Metamyelocytes % 1.0 H Neutrophils # (Manual) 7062 H RBC Morphology Normal morphology Sodium 141 Potassium 4.7 Chloride 106 Carbon Dioxide 26 BUN 42 H Creatinine 2.07 H Estimated GFR 23 L BUN/Creatinine Ratio 20.3 Glucose 198 H Calcium 7.1 L PFSH Medical History Coronary artery disease involving [place] coronary artery of [place] heart without angina pectoris (10/2003) Diabetic neuropathy Essential hypertension Ischemic cardiomyopathy (2015) [place] (myocardial infarction) (10/2003) Mixed hyperlipidemia Myocardial infarction Nonrheumatic mitral valve regurgitation Peripheral edema Small bowel obstruction Small bowel obstruction (2016) Small bowel obstruction (11/20/17) Type 2 diabetes mellitus (06/30/12) Surgical History History of appendectomy (1973) History of cholecystectomy (1973) History of coronary artery stent placement (10/2003) Status post colonoscopy (2005) Status post coronary angiogram Status post epidural steroid injection (11/20/17) Status post exploratory laparotomy (11/20/17) Status post hysterectomy (1999) Family History Brother Colorectal cancer Mother CAD (coronary artery disease) Social History marital status: number of children: 5 household members: spouse lives independently: Yes caregiver/support person: No housing: house pets and animals: No education level: high school occupational status: other (Retired) 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 Anything that can be done with hands.) Smoking Status: Never smoker Tobacco: How many years used: 0 quit status: quit date established (Never Started) second hand exposure: No alcohol intake: current substance use type: does not use Assessment & Plan Assessment and plan (1) Bowel obstruction: Status: Acute Plan Likely has an ileus following exploratory laparotomy Replace NG tube for gastric decompression Add Toradol Reduce the dose of Dilaudid since it makes her loopy Heparin for DVT prophylaxis
[2022-09-07] MEDS: METOCLOPRAMIDE 10 MG/2 ML INJ 5 MG IV (18:22)
[2022-09-07 19:03] LABS: BUN Creatinine Ratio 32.1 (6-22); Blood Urea Nitrogen 44 mg/dL (7-17); Calcium 7.4 mg/dL (8.4-10.2); Carbon Dioxide 29 mmol/L (22-32); Chloride 107 mmol/L (98-107); Estimated Glomerular Filt Rate 38 mL/min (>60); Glucose 209 mg/dL (80-110); HEMOLYSIS < 15 (0-50); Potassium 4.2 mmol/L (3.4-5.1); Sodium 141 mmol/L (137-145)
[2022-09-07] MEDS: KETOROLAC 30 MG/ML VIAL IV (19:46)
[2022-09-07] MEDS: carvediloL 12.5 MG TABLET PO (21:18)
[2022-09-07] MEDS: HEPARIN 5,000 UNIT/ML VIAL 5000 UNIT SUBCUT (21:21)
[2022-09-08] VITALS (10 sets, daily range): BP systolic 127–182; BP diastolic 51–74; PULSE 79–98; RESP 16–18; TEMP 36.2–37.1; O2SAT 93–99
[2022-09-08] MEDS: MORPHINE 2 MG/ML INJ IV ×2 (01:40→09:45)
[2022-09-08] MEDS: SODIUM CHLORIDE 0.9% 1,000 ML 125 ML IV ×2 (03:33→11:25)
[2022-09-08 05:12] LABS: Add Manual Diff / Slide Review NO; Basophils Absolute Auto 0 /uL (0-100); Basophils Percent Auto 0.2 % (0-2); Eosinophils Absolute Auto 0 /uL (0-450); Hematocrit 34.1 % (36-46); Hemoglobin 11.2 g/dL (12.0-16.0); Lymphocytes Absolute Auto 1300 /uL (1100-4500); Lymphocytes Percent Auto 13.7 % (25-40); Mean Corpuscular HGB Conc 32.8 % (30-36); Mean Corpuscular Hemoglobin 30.1 PG (26-34); Mean Corpuscular Volume 91.7 fL (80-100); Monocytes Absolute Auto 1100 /uL (0-900); Monocytes Percent Auto 11.5 % (3-14); Neutrophils Absolute Auto 7100 /uL (1500-7000); Neutrophils Percent Auto 74.6 % (50-75); Platelet Count 160 X10^3/uL (150-400); Red Blood Cell Count 3.72 X10^6/uL (4.0-5.2); Red Cell Distribution Width 14.6 % (11.6-14.8); White Blood Cell Count 9.6 X10^3/uL (4.5-11.0)
[2022-09-08 05:22] LABS: Alanine Aminotransferase 24 IU/L (<35); Albumin 2.6 g/dL (3.5-5.0); Albumin Globulin Ratio 0.8 (1.0-2.8); Alkaline Phosphatase 50 U/L (38-126); Aspartate Aminotransferase 42 IU/L (14-36); BUN Creatinine Ratio 39.3 (6-22); Bilirubin Total 0.3 mg/dL (0.2-1.3); Blood Urea Nitrogen 44 mg/dL (7-17); Calcium 7.1 mg/dL (8.4-10.2); Carbon Dioxide 29 mmol/L (22-32); Chloride 112 mmol/L (98-107); Estimated Glomerular Filt Rate 49 mL/min (>60); Globulin 3.1 g/dL (1.7-4.1); Glucose 168 mg/dL (80-110); HEMOLYSIS < 15 (0-50); Potassium 3.8 mmol/L (3.4-5.1); Sodium 144 mmol/L (137-145); Total Protein 5.7 g/dL (6.3-8.2)
[2022-09-08 05:30] LABS: NT-proBNP (BNP-Adult 18+) 1090 pg/mL (<450)
--- NOTE | 2022-09-08 07:06 | P.PN_ITS ---
Subjective Subjective Date Patient Seen: 09/08/22 Time Patient Seen: 07:06 Interval history: Presentation and clinical course reviewed....required surgical intervention for SBO. Now post-op day 2, still with NG in place. Blood sugars a bit elevated, on insulin only for coverage. Also watching BP/HR with carvedilol given on/off, most recently last pm (due to NG/GI issues) NG tube apparently came out on its own or was pulled out and patient had recurrent issues and had to have it replaced. This morning is found to be nonfunctional and when readjusted and or suction readjusted she is had large drainage from her NG tube. She is feeling somewhat better. Per patient's daughter who is with her here today she also seem to be really quite affected by the Dilaudid give him for pain control previously she is been minimally responsive for quite some time although the last 12 hours has improved significantly and she seems to be at baseline for me here this morning Exam Vital Signs (past 8 hours): - 09/08/22 00:00 09/08/22 04:00 Temperature 98.6 F 98.6 F Pulse Rate 98 H 91 H Respiratory Rate 18 17 Blood Pressure 127/51 L 141/53 H Pulse Oximetry 93 94 Oxygen Flow Rate 2 2 Oxygen Delivery Method Nasal Cannula Oxygen Flow Rate 2 Narrative Exam Narrative: Abdomen-no bowel tones, mild distention no rebound or guarding Objective Labs 09/08/22 04:50 09/08/22 04:50 Labs: Laboratory Results - last 24 hr 09/07/22 09/08/22 09/08/22 18:35 04:50 04:50 WBC 9.6 RBC 3.72 L Hgb 11.2 L Hct 34.1 L MCV 91.7 MCH 30.1 MCHC 32.8 RDW 14.6 Plt Count 160 Neut % (Auto) 74.6 Lymph % (Auto) 13.7 L [place] % (Auto) 11.5 Eos % (Auto) 0.0 L Baso % (Auto) 0.2 Neut # (Auto) 7100 H Lymph # (Auto) 1300 [place] # (Auto) 1100 H Eos # (Auto) 0 Baso # (Auto) 0 Sodium 141 Potassium 4.2 Chloride 107 Carbon Dioxide 29 BUN 44 H Creatinine 1.37 H Estimated GFR 38 L BUN/Creatinine Ratio 32.1 H Glucose 209 H Calcium 7.4 L Total Bilirubin AST ALT Alkaline Phosphatase NT-Pro-B Natriuret Pep 1090 H Total Protein Albumin Globulin Albumin/Globulin Ratio 09/08/22 04:50 WBC RBC Hgb Hct MCV MCH MCHC RDW Plt Count Neut % (Auto) Lymph % (Auto) [place] % (Auto) Eos % (Auto) Baso % (Auto) Neut # (Auto) Lymph # (Auto) [place] # (Auto) Eos # (Auto) Baso # (Auto) Sodium 144 Potassium 3.8 Chloride 112 H Carbon Dioxide 29 BUN 44 H Creatinine 1.12 H Estimated GFR 49 L BUN/Creatinine Ratio 39.3 H Glucose 168 H Calcium 7.1 L Total Bilirubin 0.3 AST 42 H ALT 24 Alkaline Phosphatase 50 NT-Pro-B Natriuret Pep Total Protein 5.7 L Albumin 2.6 L Globulin 3.1 Albumin/Globulin Ratio 0.8 L PFSH Medical History Coronary artery disease involving [place] coronary artery of [place] heart without angina pectoris (10/2003) Diabetic neuropathy Essential hypertension Ischemic cardiomyopathy (2015) [place] (myocardial infarction) (10/2003) Mixed hyperlipidemia Myocardial infarction Nonrheumatic mitral valve regurgitation Peripheral edema Small bowel obstruction Small bowel obstruction (2016) Small bowel obstruction (11/20/17) Type 2 diabetes mellitus (06/30/12) Surgical History History of appendectomy (1973) History of cholecystectomy (1973) History of coronary artery stent placement (10/2003) Status post colonoscopy (2005) Status post coronary angiogram Status post epidural steroid injection (11/20/17) Status post exploratory laparotomy (11/20/17) Status post hysterectomy (1999) Family History Brother Colorectal cancer Mother CAD (coronary artery disease) Social History marital status: number of children: 5 household members: spouse lives independently: Yes caregiver/support person: No housing: house pets and animals: No education level: high school occupational status: other (Retired) 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 Anything that can be done with hands.) Smoking Status: Never smoker Tobacco: How many years used: 0 quit status: quit date established (Never Started) second hand exposure: No alcohol intake: current substance use type: does not use Assessment & Plan Assessment & Plan narrative: 1. POD 2, Lysis Adhesions for release of obstruction....still with NG, f/u care as per General Surgery. Hopefully this will be much shorter postoperative course verses last time when she actually had a resection of her small bowel as well 2. DM - advance insulin coverage to med dose algorithm. Continue to monitor 3. HTN - continue to give carvedilol as able, both for HTN and known CAD. Continue to monitor numbers for now 4. MERCED - improving renal function with hydration, etc. Continue to monitor
[2022-09-08] MEDS: INSULIN REGULAR 100 UNIT/ML 3 ML VIAL SUBCUT ×3 (08:44→18:40)
[2022-09-08] MEDS: HEPARIN 5,000 UNIT/ML VIAL 5000 UNIT SUBCUT ×2 (09:43→21:17)
[2022-09-08] MEDS: METOCLOPRAMIDE 10 MG/2 ML INJ 5 MG IV (09:44)
[2022-09-08] MEDS: KETOROLAC 30 MG/ML VIAL IV ×3 (09:45→22:45)
[2022-09-08] MEDS: carvediloL 12.5 MG TABLET PO ×2 (09:46→21:17)
--- NOTE | 2022-09-08 10:35 | PT.OIE ---
Current Diagnoses Partial intestinal obstruction, unspecified as to cause (09/04/22) Unspecified intestinal obstruction, unspecified as to partial versus complete obstruction (09/04/22) Past Medical History (Last Reviewed 09/05/22 @ 10:49 by Shahzad Du MD) Coronary artery disease involving [place] coronary artery of [place] heart without angina pectoris (10/2003) Diabetic neuropathy Essential hypertension Ischemic cardiomyopathy (2016) [place] (myocardial infarction) (10/2003) Mixed hyperlipidemia Myocardial infarction Nonrheumatic mitral valve regurgitation Peripheral edema Small bowel obstruction Small bowel obstruction (2016) Small bowel obstruction (11/20/17) Type 2 diabetes mellitus (06/30/12) Past Surgical History (Last Reviewed 09/05/22 @ 10:49 by Shahzad Du MD) History of appendectomy (1973) History of cholecystectomy (1973) History of coronary artery stent placement (10/2003) Status post colonoscopy (2005) Status post coronary angiogram Status post epidural steroid injection (11/20/17) Status post exploratory laparotomy (11/20/17) Status post hysterectomy (1999) Visit Care Team Role Provider Type Shahzad Du MD Other Providers Physician Specialty: General Surgery Address: [address] [place] [address], [address] Email: [email or web address] Bob Franco MD Family Provider Physician Specialty: Cardiology Address: [address] [place] [address], [address], [place], [address] Email: [email or web address] Daigle DO Emergency Provider Physician Referring Provider Specialty: Emergency Medicine Address: [address] [place] [address], [address] Email: [email or web address] Walt Ray MD Attending Provider Physician Primary Care Provider Specialty: Internal Medicine Address: [address] [place] [address], [address], [place], [address] Email: [email or web address] Tabby Stewart MD Admit Provider Physician Other Providers Specialty: Family Practice Address: [address] [place] [address], [address] Email: [email or web address]
--- NOTE | 2022-09-08 10:35 | PT.IIE ---
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], with partial obstruction (09/04/22) Acute kidney failure, unspecified (09/04/22) Hypoxemia (09/04/22) Contact with and (suspected) exposure to COVID-19 (09/04/22) Do not resuscitate (09/04/22) snf (current) use of oral hypoglycemic drugs (09/04/22) Surgery Performed Operation Date: 09/06/22 11:15 Actual Procedures p Exploratory Laparotomy GEN(Not Applicable) - Shahzad Du MD Surgical History (Last Reviewed 09/11/22 @ 13:49 by Walt Ray MD) History of appendectomy (1973) History of cholecystectomy (1973) History of coronary artery stent placement (10/2003) Status post colonoscopy (2005) Status post coronary angiogram Status post epidural steroid injection (11/20/17) Status post exploratory laparotomy (11/20/17) Status post hysterectomy (1999) Medical History (Last Reviewed 09/11/22 @ 13:49 by Walt Ray MD) Coronary artery disease involving [place] coronary artery of [place] heart without angina pectoris (10/2003) Diabetic neuropathy Essential hypertension Ischemic cardiomyopathy (2015) [place] (myocardial infarction) (10/2003) Mixed hyperlipidemia Myocardial infarction Nonrheumatic mitral valve regurgitation Peripheral edema Small bowel obstruction Small bowel obstruction (2016) Small bowel obstruction (11/20/17) Type 2 diabetes mellitus (06/30/12) Physical Therapy Inpatient Evaluation/Re-Eval M1 PT/OT-IP Prior Functional Status Start: 09/06/22 14:41 Freq: NEEDED Status: Discharge Protocol: Document 09/14/22 10:35 LRN (Rec: 09/08/22 17:08 LRN [id number]) Medical Review Prior Functional Status Medical History Reviewed Yes Diet/Fluid Consistency Regular Communication Normal Mobility and Gait Independent without assistive device. Activities of Daily Living and IADL's Independent. Social History Household Members spouse Living Arrangements House Number of Floors (Floors) One Floor Number of Stairs To Enter/Railing? 1 Home Environment Standard Height Toilet,Tub/ Shower Home Equipment Straight Cane Additional Social History Comment Pt sleeps in recliner chair due to history of chronic back pain. M2 PT-IP Current Condition Start: 09/06/22 14:41 Freq: NEEDED Status: Discharge Protocol: Document 09/14/22 10:35 LRN (Rec: 09/08/22 17:08 LRN [id number]) Physical Therapy Current Condition Current Condition Evaluation Date 09/08/22 Treatment Diagnosis po day 1, Exploratory laparotomy, decreased mobility , end[place] Onset Date 09/07/22 M3 PT-IP Subjective Start: 09/06/22 14:41 Freq: NEEDED Status: Discharge Protocol: Document 09/14/22 10:35 LRN (Rec: 09/08/22 17:08 LRN [id number]) Subjective Physical Therapy Visit Type Type Initial Evaluation Visit Start Time 09:59 Visit Stop Time 10:35 Total Visit Minutes 36 Notes 1 Physical Therapy Visit Comments Patient Comments Pt reports no back or abdominal pain at rest or after mobilization. Patient Goals Pt goal is to be discharged home. Therapy Pain Assessment Pain When Pain Assessed At Rest Location abdomen Intensity 0 Scale Used Numeric (0 - 10) M4 PT-IP Mobility and Gait Start: 09/06/22 14:41 Freq: NEEDED Status: Discharge Protocol: Document 09/14/22 10:35 LRN (Rec: 09/08/22 17:08 LRN [id number]) PT-Bed Mobility Assessment Rolling Type of Rolling Log Rolling Level of Assist Minimal Assistance Supine to Sit Supine to Sit Minimal Assistance Scooting Scooting to Edge of Bed Standby Assistance PT-Transfer Assessment Sit to and From Stand Sit to and from Stand Standby Assistance,Contact Guard Assistance,1 Person Assistance Equipment Transfer Assistive Device Front Wheeled Walker Orthotic/Prosthetic Devices or Brace: No Transfers Transfer Destination Chair Transfer Technique Stand Step Pivot Transfer Ability Level of Assist Standby Assistance,Contact Guard Assistance,1 Person Assistance Comments Mobility Comments SCD's removed. Counter pressure placed at abdomen with pillow during transfers. Pt transfered to sit from a semi-reclined position due to pt home situation of her sleeping in a recliner chair in semi-reclined position. Pt follows directions well, was able to safely transfer with v cuing and directions. Pt had IV line & catheter that was helped manage by NURSE EXECUTIVE. Gait belt placed high on chest . Gait Assessment Gait Gait Assistance Required: Contact Guard Assist Distance (Feet) 2 Able to Maintain Weight Bearing Status Yes During Gait Assistive Devices Assistive Device Gait Belt,Front Wheeled Walker Gait Deviations General Gait Pattern Decreased Stride Length, Decreased Feet Clearance Factors Limiting Gait Function Factors Limiting Gait Function Decreased Activity Tolerance Comments Gait Comments Pt reports distance from car to house is 30 ft. Stair Climbing Assessment Comments Stair Climbing Comments Not appropriate at this time. Pt reportedly has 1 small step to get into house. PT-Balance Assessment Sitting Balance and Reactions Static Sitting Balance Ability Good Dynamic Sitting Balance Ability Good Standing Balance and Reactions Static Standing Balance Ability Good Dynamic Standing Balance Ability Fair M5 PT-IP Objective Assessments Start: 09/06/22 14:41 Freq: NEEDED Status: Discharge Protocol: Document 09/14/22 10:35 LRN (Rec: 09/08/22 17:08 LRN [id number]) Orientation Orientation/Cognition Level of Alertness Alert Orientation Name,Month,Year,Day of Week, Place,Situation Language Function Ability No Deficits Noted Safety Awareness Understands Safety Issues Memory Description No Deficits Noted Gross Range of Motion Upper Extremity ROM Assessment Within Functional Limits Lower Extremity ROM Assessment Within Functional Limits Strength Upper Extremity Strength Assessment Within Functional Limits Lower Extremity Strength Assessment Within Functional Limits Sensation Assessment Sensation Gross Sensation WNL Other Assessments Other Other Assessments Vitals: At rest in bed: BP is 153/66, HR 103, SpO2 95% on 2.5 L O2 via nc. After transfer into bedside chair: BP 170/62; HR 98, SpO2 95% on 2.5 L O2 via nc. M6 PT-IP Treatment Start: 09/06/22 14:41 Freq: NEEDED Status: Discharge Protocol: Document 09/14/22 10:35 LRN (Rec: 09/08/22 17:08 LRN [id number]) Physical Therapy Treatment Exercises Exercises Ankle Pumps Education Education Provided Precautions Other Treatments Other Treatment Performed Transfer training: Log roll method with counter pressure on abdomen, and sit<>stand. Pt left in bedside chair with 4-5 family members present and nursing aware. Family sitting around patient; therefore tray table was off to the side and family members instructed to place tray table and contents within pt reach if all leaving. Family reported there is someone always with her. Nursing was notified of pt's change in BP with transfer and that pt was left sitting in chair with call light with patient. M7 PT-IP Assessment and Plan Start: 09/06/22 14:41 Freq: NEEDED Status: Discharge Protocol: Document 09/14/22 10:35 LRN (Rec: 09/08/22 17:08 LRN [id number]) PT Summary Assessment and Plan Potential Rehabilitation Potential Good Status of Condition at Evaluation Evolving Summary Impairments Bed Mobility,Transfers,Gait, Activity Tolerance Assessment Summary Pt is a 82 yo female who is day 1 s/p SBO, exploratory laparotomy. She was having no pain complaints of abdomen or back pain, and was able to log roll from a semi-reclined position with min A of 1 and transfer out of bed and into the bedside chair with CGA of 1/GB high on chest/FWW. The pt was on 2.5 L O2 via nc with IV and catheter in place. The pt tolerated transfers very well and was left resting comfortably with call iight in hand, and family around patient. The pt did have an increase in BP with systolic 20 bpm above her resting, but her HR and SpO2 were within acceptable ranges, indicating pt has poor tolerance to activity. It is expected that the pt will progress as expected with therapy without complications. Pt will need a FWW for home use and the family is aware and will make plans to obtain one. Goals Bed Mobility Goal Independent,Standby Assistance Transfer Goal Independent Gait Goal Independent,Front Wheel Walker Gait Distance 50' Other Goals 1. Pt able to ambulate at least 1 step with SBA/1 rail ( to mimic use of walker on 1 side since no railing is available). Note: family states spouse would be able to physically help pt on one side with step if needed. 2. Pt will be able to verbalize abdominal surgical precautions. 3. Wean pt from O2 via nc if approriate. Frequency of Treatment Frequency Of Treatment Once a Day Treatment Plan Physical Therapy Treatment Plan Bed Mobility Training,Transfer Training,Gait Training Precautions Abdominal Surgery Precautions Log Roll,Lifting Restrictions, Gait Belt above Incisional Area Weight Bearing Status Weight Bearing Status Weight Bear as Tolerated Recommendations To Nursing Amount of Assist Needed Standby Assistance,1 Person Assist Discharge Recommendations PT Discharge Recommendations Home with Assistance Equipment Needed for Home Before FWW, O2 home needs if Discharge appropriate. Transportation Needs at Discharge Private Vehicle
--- NOTE | 2022-09-08 11:18 | P.PN_ITS ---
Subjective Subjective Date Patient Seen: 09/08/22 Time Patient Seen: 11:18 Interval history: Nasogastric tube Was replaced. No flatus. Abdominal pain is controlled. T-max 100.4?. Exam Vital Signs (past 8 hours): - 09/08/22 04:00 09/08/22 08:00 09/08/22 09:59 Temperature 98.6 F 97.1 F L Pulse Rate 91 H 94 H Respiratory Rate 17 17 Blood Pressure 141/53 H 162/67 H Pulse Oximetry 94 99 95 Oxygen Delivery Method Nasal Cannula Oxygen Flow Rate 2 3 2.5 Oxygen Delivery Method Nasal Cannula Oxygen Flow Rate 2.5 Narrative Exam Narrative: General adult woman alert oriented no acute distress Chest nonlabored respiration Abdomen moderate distention compressible appropriately tender to palpation. Midline dressing is clear dry intact Objective Labs 09/08/22 04:50 09/08/22 04:50 Labs: Laboratory Results - last 24 hr 09/07/22 09/08/22 09/08/22 18:35 04:50 04:50 WBC 9.6 RBC 3.72 L Hgb 11.2 L Hct 34.1 L MCV 91.7 MCH 30.1 MCHC 32.8 RDW 14.6 Plt Count 160 Neut % (Auto) 74.6 Lymph % (Auto) 13.7 L Maury % (Auto) 11.5 Eos % (Auto) 0.0 L Baso % (Auto) 0.2 Neut # (Auto) 7100 H Lymph # (Auto) 1300 Maury # (Auto) 1100 H Eos # (Auto) 0 Baso # (Auto) 0 Sodium 141 Potassium 4.2 Chloride 107 Carbon Dioxide 29 BUN 44 H Creatinine 1.37 H Estimated GFR 38 L BUN/Creatinine Ratio 32.1 H Glucose 209 H Calcium 7.4 L Total Bilirubin AST ALT Alkaline Phosphatase NT-Pro-B Natriuret Pep 1090 H Total Protein Albumin Globulin Albumin/Globulin Ratio 09/08/22 04:50 WBC RBC Hgb Hct MCV MCH MCHC RDW Plt Count Neut % (Auto) Lymph % (Auto) Maury % (Auto) Eos % (Auto) Baso % (Auto) Neut # (Auto) Lymph # (Auto) Maury # (Auto) Eos # (Auto) Baso # (Auto) Sodium 144 Potassium 3.8 Chloride 112 H Carbon Dioxide 29 BUN 44 H Creatinine 1.12 H Estimated GFR 49 L BUN/Creatinine Ratio 39.3 H Glucose 168 H Calcium 7.1 L Total Bilirubin 0.3 AST 42 H ALT 24 Alkaline Phosphatase 50 NT-Pro-B Natriuret Pep Total Protein 5.7 L Albumin 2.6 L Globulin 3.1 Albumin/Globulin Ratio 0.8 L PFS Medical History Coronary artery disease involving [place] coronary artery of [place] heart without angina pectoris (10/2003) Diabetic neuropathy Essential hypertension Ischemic cardiomyopathy (2015) [place] (myocardial infarction) (10/2003) Mixed hyperlipidemia Myocardial infarction Nonrheumatic mitral valve regurgitation Peripheral edema Small bowel obstruction Small bowel obstruction (2016) Small bowel obstruction (11/20/17) Type 2 diabetes mellitus (06/30/12) Surgical History History of appendectomy (1973) History of cholecystectomy (1973) History of coronary artery stent placement (10/2003) Status post colonoscopy (2005) Status post coronary angiogram Status post epidural steroid injection (11/20/17) Status post exploratory laparotomy (11/20/17) Status post hysterectomy (1999) Family History Brother Colorectal cancer Mother CAD (coronary artery disease) Social History marital status: number of children: 5 household members: spouse lives independently: Yes caregiver/support person: No housing: house pets and animals: No education level: high school occupational status: other (Retired) 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 Anything that can be done with hands.) Smoking Status: Never smoker Tobacco: How many years used: 0 quit status: quit date established (Never Started) second hand exposure: No alcohol intake: current substance use type: does not use Assessment & Plan Post-op Postoperative Procedures: Procedures Operation Date: 09/06/22 11:15 Actual Procedure Side Surgeon p Exploratory Laparotomy GEN Not Applicable Shahzad Du MD Postoperative status narrative: 82-year-old woman postoperative day 2 status post exploratory laparotomy and lysis of adhesions for a small-bowel obstruction. She is recovering appropriately from surgery. She has a postoperative ileus as expected. Continue nasogastric tube to intermittent low wall suction and await return of bowel function.
[2022-09-08] MEDS: ONDANSETRON 4 MG/2 ML INJ IV (16:02)
--- NOTE | 2022-09-08 16:20 | DI.RAD.S_ITS ---
PROCEDURE: XR CHEST 1V INDICATIONS: dyspnea TECHNIQUE: One view of the chest was acquired. COMPARISON: [facility], CR, XR CHEST 1V, 09/04/2022, 22:35. [facility], CR, XR CHEST 1V, 12/14/2018, 23:09. FINDINGS: Surgical changes and devices: Partially seen enteric tube Lungs and pleura: Low lung volumes. There may be a retrocardiac opacity. Suspected superimposed atelectasis. Mediastinum: Borderline enlarged heart. Bones and chest wall: No suspicious bony lesions. Overlying soft tissues appear unremarkable. IMPRESSION: Possible retrocardiac opacity. Likely superimposed atelectasis. Low lung volumes. Borderline enlarged heart. Consider future imaging surveillance to assess for resolution. Dictated by: Darryl Moreno M.D. on 09/08/2022 at 20:51 Approved by: Darryl Moreno M.D. on 09/08/2022 at 20:54
[2022-09-08] MEDS: LACTATED RINGERS 1,000 ML 125 ML IV (16:46)
[2022-09-08] MEDS: FUROSEMIDE 40 MG/4 ML VIAL IV (16:46)
[2022-09-09] VITALS (8 sets, daily range): BP systolic 125–157; BP diastolic 45–80; PULSE 61–79; RESP 15–18; TEMP 36.4–37; O2SAT 95–97
[2022-09-09] MEDS: LACTATED RINGERS 1,000 ML 125 ML IV (00:54)
--- NOTE | 2022-09-09 02:19 | PC.NURSE ---
Pt's NG tube is patent draining watery green fluid with pieces. Tube clogs often, flush approximately q 2 hrs. Will continue to monitor.
[2022-09-09 06:08] LABS: BUN Creatinine Ratio 41.9 (6-22); Blood Urea Nitrogen 39 mg/dL (7-17); Calcium 7.9 mg/dL (8.4-10.2); Chloride 103 mmol/L (98-107); Estimated Glomerular Filt Rate > 60 mL/min (>60); Glucose 170 mg/dL (80-110); HEMOLYSIS < 15 (0-50); Potassium 3.3 mmol/L (3.4-5.1); Sodium 147 mmol/L (137-145)
[2022-09-09 06:15] LABS: Carbon Dioxide 38 mmol/L (22-32); NT-proBNP (BNP-Adult 18+) 2700 pg/mL (<450)
[2022-09-09] MEDS: INSULIN REGULAR 100 UNIT/ML 3 ML VIAL SUBCUT (06:41)
--- NOTE | 2022-09-09 07:00 | PC.NURSE ---
pt had small bowel movement, brown, soft, passing gas.
--- NOTE | 2022-09-09 08:22 | P.PN_ITS ---
Subjective Subjective Date Patient Seen: 09/09/22 Time Patient Seen: 08:22 Interval history: Patient with persistent large volume output from NG tube, probably least in part due to oral intake (ice chips etcetera). Did pass some gas and has a bit of an appetite this morning [place] like she was struggling a bit more to breathe and felt sort of ?puffy ?all over. Concern for possible congestive heart failure given her known cardiomyopathy in so she was given a dose of Lasix. This did seem to help her overall sense and she producing modest amounts of urine. Still has a low oxygen requirement. Chest x-ray performed consistent with possible very early fluid overload verses very early infiltrate in a retrocardiac position Vital signs are acceptable blood pressure tiny bit borderline Exam Vital Signs (past 8 hours): - 09/09/22 04:00 09/09/22 07:58 Temperature 98.6 F 97.6 F Pulse Rate 61 77 Respiratory Rate 16 18 Blood Pressure 157/51 H 141/80 H Pulse Oximetry 95 97 Oxygen Flow Rate 3 3 Oxygen Delivery Method Nasal Cannula Oxygen Flow Rate 3 Narrative Exam Narrative: Abdomen-rare bowel tones, modest distention no rebound or guarding, similar to yesterday although improving bowel tones Objective Labs 09/08/22 04:50 09/09/22 05:10 Labs: Laboratory Results - last 24 hr 09/09/22 09/09/22 05:10 05:10 Sodium 147 H Potassium 3.3 L Chloride 103 Carbon Dioxide 38 H BUN 39 H Creatinine 0.93 Estimated GFR > 60 BUN/Creatinine Ratio 41.9 H Glucose 170 H Calcium 7.9 L NT-Pro-B Natriuret Pep 2700 H [facility] Medical History Coronary artery disease involving [place] coronary artery of [place] heart without angina pectoris (10/2003) Diabetic neuropathy Essential hypertension Ischemic cardiomyopathy (2016) [place] (myocardial infarction) (10/2003) Mixed hyperlipidemia Myocardial infarction Nonrheumatic mitral valve regurgitation Peripheral edema Small bowel obstruction Small bowel obstruction (2016) Small bowel obstruction (11/20/17) Type 2 diabetes mellitus (06/30/12) Surgical History History of appendectomy (1973) History of cholecystectomy (1973) History of coronary artery stent placement (10/2003) Status post colonoscopy (2005) Status post coronary angiogram Status post epidural steroid injection (11/20/17) Status post exploratory laparotomy (11/20/17) Status post hysterectomy (1999) Family History Brother Colorectal cancer Mother CAD (coronary artery disease) Social History marital status: number of children: 5 household members: spouse lives independently: Yes caregiver/support person: No housing: house pets and animals: No education level: high school occupational status: other (Retired) 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 Anything that can be done with hands.) Smoking Status: Never smoker Tobacco: How many years used: 0 quit status: quit date established (Never Started) second hand exposure: No alcohol intake: current substance use type: does not use Assessment & Plan Assessment & Plan narrative: 1. Postop day 3, Status post exploratory laparotomy lysis of adhesions-patient appears to have early return of bowel function. Continue management as per surgery but likely can remove NG tube and begin oral feeding. 2. Diabetes-continue with coverage insulin. Higher dose insulin has resulted in better blood sugar control. Plan to resume some patient's oral diabetes meds tomorrow assuming she does well with oral intake today 3. Fluids/electrolytes/nutrition-mild hypokalemia, will replace parenterally t regine. I do believe she is a bit volume overloaded so will give another dose of Lasix IV and monitor electrolytes including magnesium tomorrow. Renal function normal this morning. As above will likely start on some clear/full liquids later today as per surgery which will address nutritional needs 4. Respiratory-question congestive heart failure verses early pneumonia-patient only with the minimal oxygen requirement. May also be secondary to some degree of abdominal distention. I do believe she would benefit from an additional dose of Lasix. Okay to discontinue IV fluids assuming she is taking oral adequately
--- NOTE | 2022-09-09 08:59 | P.PN_ITS ---
Subjective Subjective Date Patient Seen: 09/09/22 Time Patient Seen: 08:59 Interval history: Minimal abdominal pain. Several bowel movements overnight. no fever or nausea Exam Vital Signs (past 8 hours): - 09/09/22 04:00 09/09/22 07:58 Temperature 98.6 F 97.6 F Pulse Rate 61 77 Respiratory Rate 16 18 Blood Pressure 157/51 H 141/80 H Pulse Oximetry 95 97 Oxygen Flow Rate 3 3 Oxygen Delivery Method Nasal Cannula Oxygen Flow Rate 3 Narrative Exam Narrative: general adult woman alert oriented no distress Abdomen soft compressible minimally distended. Appropriately tender to palpation. Objective Labs 09/08/22 04:50 09/09/22 05:10 Labs: Laboratory Results - last 24 hr 09/09/22 09/09/22 05:10 05:10 Sodium 147 H Potassium 3.3 L Chloride 103 Carbon Dioxide 38 H BUN 39 H Creatinine 0.93 Estimated GFR > 60 BUN/Creatinine Ratio 41.9 H Glucose 170 H Calcium 7.9 L NT-Pro-B Natriuret Pep 2700 H PFS Medical History Coronary artery disease involving [place] coronary artery of [place] heart without angina pectoris (10/2003) Diabetic neuropathy Essential hypertension Ischemic cardiomyopathy (2015) [place] (myocardial infarction) (10/2003) Mixed hyperlipidemia Myocardial infarction Nonrheumatic mitral valve regurgitation Peripheral edema Small bowel obstruction Small bowel obstruction (2016) Small bowel obstruction (11/20/17) Type 2 diabetes mellitus (06/30/12) Surgical History History of appendectomy (1973) History of cholecystectomy (1973) History of coronary artery stent placement (10/2003) Status post colonoscopy (2005) Status post coronary angiogram Status post epidural steroid injection (11/20/17) Status post exploratory laparotomy (11/20/17) Status post hysterectomy (1999) Family History Brother Colorectal cancer Mother CAD (coronary artery disease) Social History marital status: number of children: 5 household members: spouse lives independently: Yes caregiver/support person: No housing: house pets and animals: No education level: high school occupational status: other (Retired) 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 Anything that can be done with hands.) Smoking Status: Never smoker Tobacco: How many years used: 0 quit status: quit date established (Never Started) second hand exposure: No alcohol intake: current substance use type: does not use Assessment & Plan Post-op Postoperative Procedures: Procedures Operation Date: 09/06/22 11:15 Actual Procedure Side Surgeon p Exploratory Laparotomy GEN Not Applicable Shahzad Du MD Postoperative status narrative: 82-year-old woman postoperative day 3 status post exploratory laparotomy and lysis of adhesions for small-bowel obstruction. Her postoperative ileus has resolved. - Remove nasogastric tube - start full liquid diet - discontinue IV fluids - consider dose of Lasix today prior to catheter removal - SCDs and Lovenox for VT prophylaxis - PT for disposition planning
[2022-09-09] MEDS: FUROSEMIDE 40 MG/4 ML VIAL IV (09:40)
[2022-09-09] MEDS: HEPARIN 5,000 UNIT/ML VIAL 5000 UNIT SUBCUT ×2 (09:40→20:43)
[2022-09-09] MEDS: carvediloL 12.5 MG TABLET PO ×2 (09:40→20:43)
[2022-09-09] MEDS: POTASSIUM CHLORIDE IN WATER 10 MEQ/100 ML PIGGYBACK 100 MEQ IV ×4 (09:41→12:46)
[2022-09-09] MEDS: glipiZIDE 5 MG TABLET 2.5 MG PO (10:41)
--- NOTE | 2022-09-09 13:45 | PT.IPTN ---
Current Diagnoses Partial intestinal obstruction, unspecified as to cause (09/04/22) Unspecified intestinal obstruction, unspecified as to partial versus complete obstruction (09/04/22) Surgery Performed Operation Date: 09/06/22 11:15 Actual Procedures p Exploratory Laparotomy GEN(Not Applicable) - Shahzad Du MD Physical Therapy Treatment Note M2 PT-IP Current Condition Start: 09/06/22 14:41 Freq: NEEDED Status: Active Protocol: Document 09/08/22 10:35 LRN (Rec: 09/08/22 17:08 LRN [id number]) Physical Therapy Current Condition Current Condition Evaluation Date 09/08/22 Treatment Diagnosis po day 1, Exploratory laparotomy, decreased mobility , [place] Onset Date 09/07/22 M3 PT-IP Subjective Start: 09/06/22 14:41 Freq: NEEDED Status: Active Protocol: Document 09/09/22 14:17 TS (Rec: 09/09/22 14:34 TS [id number]) Subjective Physical Therapy Visit Type Type Treatment Note Visit Start Time 13:45 Visit Stop Time 14:15 Total Visit Minutes 30 Number of CLOUD OPERATIONS ENGINEER Visits 1 Physical Therapy Visit Comments Patient Comments Pt found on commode with nursing, reports she is feeling better and looking forward to going home. Patient Goals Pt goal is to be discharged home. M4 PT-IP Mobility and Gait Start: 09/06/22 14:41 Freq: NEEDED Status: Active Protocol: Document 09/09/22 14:17 TS (Rec: 09/09/22 14:34 TS [id number]) PT-Transfer Assessment Sit to and From Stand Sit to and from Stand Standby Assistance,Contact Guard Assistance,1 Person Assistance Equipment Transfer Assistive Device Front Wheeled Walker Orthotic/Prosthetic Devices or Brace: No Transfers Transfer Destination Bed Transfer Technique Stand Step Pivot Transfer Ability Level of Assist Standby Assistance,Contact Guard Assistance,1 Person Assistance Comments Mobility Comments Pt found on commode with nursing, agreeable to PT session. Pt performed sit to stand x4 SBA, leans heavily on FWW coming into standing, no posterior leaning or LOB. She ambulated in room ~50' SBA with emerging step thru gait, required assist with lines. Stand to sit in FWW to chair SBA, provided cues for BUE support and slow eccentrci control. Pt was left in chair with call light nearby, family in room, all needs met. Gait Assessment Gait Gait Assistance Required: Standby Assistance Distance (Feet) 50 Able to Maintain Weight Bearing Status Yes During Gait Assistive Devices Assistive Device Gait Belt,Front Wheeled Walker Orthotic/Prosthetic Devices or Brace: No Gait Deviations General Gait Pattern Decreased Stride Length, Decreased Feet Clearance Factors Limiting Gait Function Factors Limiting Gait Function Decreased Activity Tolerance Comments Gait Comments See mobility comments. Stair Climbing Assessment Comments Stair Climbing Comments Will attempt next session. PT-Balance Assessment Sitting Balance and Reactions Static Sitting Balance Ability Normal Dynamic Sitting Balance Ability Good Standing Balance and Reactions Static Standing Balance Ability Good Dynamic Standing Balance Ability Fair M5 PT-IP Objective Assessments Start: 09/06/22 14:41 Freq: NEEDED Status: Active Protocol: Document 09/08/22 10:35 LRN (Rec: 09/08/22 17:08 LRN [id number]) Orientation Orientation/Cognition Level of Alertness Alert Orientation Name,Month,Year,Day of Week, Place,Situation Language Function Ability No Deficits Noted Safety Awareness Understands Safety Issues Memory Description No Deficits Noted Gross Range of Motion Upper Extremity ROM Assessment Within Functional Limits Lower Extremity ROM Assessment Within Functional Limits Strength Upper Extremity Strength Assessment Within Functional Limits Lower Extremity Strength Assessment Within Functional Limits Sensation Assessment Sensation Gross Sensation WNL Other Assessments Other Other Assessments Vitals: At rest in bed: BP is 153/66, HR 103, SpO2 95% on 2.5 L O2 via nc. After transfer into bedside chair: BP 170/62; HR 98, SpO2 95% on 2.5 L O2 via nc. M6 PT-IP Treatment Start: 09/06/22 14:41 Freq: NEEDED Status: Active Protocol: Document 09/08/22 10:35 LRN (Rec: 09/08/22 17:08 LRN [id number]) Physical Therapy Treatment Exercises Exercises Ankle Pumps Education Education Provided Precautions Other Treatments Other Treatment Performed Transfer training: Log roll method with counter pressure on abdomen, and sit<>stand. Pt left in bedside chair with 4-5 family members present and nursing aware. Family sitting around patient; therefore tray table was off to the side and family members instructed to place tray table and contents within pt reach if all leaving. Family reported there is someone always with her. Nursing was notified of pt's change in BP with transfer and that pt was left sitting in chair with call light with patient. M7 PT-IP Assessment and Plan Start: 09/06/22 14:41 Freq: NEEDED Status: Active Protocol: Document 09/09/22 14:17 TS (Rec: 09/09/22 14:34 TS [id number]) PT Summary Assessment and Plan Potential Rehabilitation Potential Good Status of Condition at Evaluation Evolving Summary Impairments Bed Mobility,Transfers,Gait, Activity Tolerance Assessment Summary Pt progressed ambulation to ~ 50' in room SBA this session, no buckling, LOB, or dizziness reported. Educated pt on abdominal precautions, recalled 0/3 this session and logroll sequencing. Pt has no complaints of pain during session and mobility has greatly improved. Pt is on 2L of o2 low to mid 90's, RA 89- 90. PT is recommending home with assist from family. Pt has good support system at [facility] that can provide her with assistance. Goals Bed Mobility Goal Independent,Standby Assistance Transfer Goal Independent Gait Goal Independent,Front Wheel Walker Gait Distance 50' Other Goals 1. Pt able to ambulate at least 1 step with SBA/1 rail ( to mimic use of walker on 1 side since no railing is available). Note: family states spouse would be able to physically help pt on one side with step if needed. 2. Pt will be able to verbalize abdominal surgical precautions. 3. Wean pt from O2 via nc if approriate. Frequency of Treatment Frequency Of Treatment Once a Day Treatment Plan Physical Therapy Treatment Plan Bed Mobility Training,Transfer Training,Gait Training Precautions Abdominal Surgery Precautions Log Roll,Lifting Restrictions, Gait Belt above Incisional Area Weight Bearing Status Weight Bearing Status Weight Bear as Tolerated Recommendations To Nursing Amount of Assist Needed Standby Assistance,1 Person Assist Discharge Recommendations PT Discharge Recommendations Home with Assistance Equipment Needed for Home Before FWW, O2 home needs if Discharge appropriate. Transportation Needs at Discharge Private Vehicle
--- NOTE | 2022-09-09 15:51 | CM.DPC ---
DCP Cont: Per MD, pt making progress and now today has had multiple bowel movements and kidney function improved. Per GENERAL PURCHASING AGENT, pt ambulated quite well today SBA and lots of family in the room and should be able to d/c home with family assist and no needs but will work on log roll due to incision site. Plan: SW to follow for plan of likely d/c home tomorrow with lots of local supportive family if medically stable. ALFREDO Chavez
[2022-09-09] MEDS: ATORVASTATIN 20 MG TABLET PO (17:07)
[2022-09-09] MEDS: KETOROLAC 30 MG/ML VIAL IV (20:44)
[2022-09-10] VITALS (12 sets, daily range): BP systolic 143–165; BP diastolic 48–58; PULSE 66–95; RESP 15–18; TEMP 36.2–37.1; O2SAT 84–97
[2022-09-10 05:38] LABS: BUN Creatinine Ratio 45.8 (6-22); Blood Urea Nitrogen 38 mg/dL (7-17); Calcium 7.6 mg/dL (8.4-10.2); Chloride 96 mmol/L (98-107); Estimated Glomerular Filt Rate > 60 mL/min (>60); Glucose 178 mg/dL (80-110); HEMOLYSIS < 15 (0-50); Potassium 3.3 mmol/L (3.4-5.1); Sodium 138 mmol/L (137-145)
[2022-09-10 05:45] LABS: Carbon Dioxide 36 mmol/L (22-32)
[2022-09-10 05:46] LABS: NT-proBNP (BNP-Adult 18+) 2970 pg/mL (<450)
--- NOTE | 2022-09-10 08:18 | PM.PN.1 ---
Subjective Subjective Date Patient Seen: 09/10/22 Time Patient Seen: 08:19 Interval history: Patient seen and evaluated this morning family at bedside. Patient had some confusion overnight but much better now. Tolerated diet yesterday and advancing. Was given Toradol family thinks maybe cause some confusion. Will go ahead and stop this with pain relief with Tylenol. Has Perez catheter in will be removed today. Still requiring a little bit of oxygen which is not her standard. Tried weaning yesterday and sats were 88. Exam Vital Signs (past 8 hours): - 09/10/22 03:39 Temperature 97.9 F Pulse Rate 67 Respiratory Rate 15 Blood Pressure 148/49 H Pulse Oximetry 95 Oxygen Flow Rate 2 Fraction of Inspired Oxygen 32 SaO2/FiO2 Ratio 303 Oxygen Delivery Method Nasal Cannula Oxygen Flow Rate 2 Narrative Exam Narrative: Gen.: Alert oriented this morning HEENT: Pupils equal round and reactive or mucosa is moist neck is supple Cardio: [S1-S2 regular rate and rhythm no murmurs appreciated.] Respiratory: Lungs show fine crackles at lung bases Abdomen: Soft incision is dressed Extremities: Trace edema warm dry perfused Objective Labs 09/08/22 04:50 09/10/22 05:00 Labs: Laboratory Results - last 24 hr 09/10/22 05:00 Sodium 138 Potassium 3.3 L Chloride 96 L Carbon Dioxide 36 H BUN 38 H Creatinine 0.83 Estimated GFR > 60 BUN/Creatinine Ratio 45.8 H Glucose 178 H Calcium 7.6 L Magnesium 2.0 NT-Pro-B Natriuret Pep 2970 H [facility] Medical History 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) Diabetic neuropathy Essential hypertension Ischemic cardiomyopathy (2015) [place] (myocardial infarction) (10/2003) Mixed hyperlipidemia Myocardial infarction Nonrheumatic mitral valve regurgitation Peripheral edema Small bowel obstruction Small bowel obstruction (2016) Small bowel obstruction (11/20/17) Type 2 diabetes mellitus (06/30/12) Surgical History History of appendectomy (1973) History of cholecystectomy (1973) History of coronary artery stent placement (10/2003) Status post colonoscopy (2005) Status post coronary angiogram Status post epidural steroid injection (11/20/17) Status post exploratory laparotomy (11/20/17) Status post hysterectomy (1999) Family History Brother Colorectal cancer Mother CAD (coronary artery disease) Social History marital status: number of children: 5 household members: spouse lives independently: Yes caregiver/support person: No housing: house pets and animals: No education level: high school occupational status: other (Retired) 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 Anything that can be done with hands.) Smoking Status: Never smoker Tobacco: How many years used: 0 quit status: quit date established (Never Started) second hand exposure: No alcohol intake: current substance use type: does not use Assessment & Plan Assessment and plan (1) Bowel obstruction: Status: Acute (2) Partial small bowel obstruction: Status: Acute Plan Postop day 4 status post exploratory laparotomy lysis of adhesions. NG tube removed yesterday patient's diet was advanced and doing well. Remove Perez catheter today ambulate Diabetes. Patient was started on oral glipizide yesterday continue with insulin coverage. Monitor blood sugars a.c. and HS. Fluid overload with mild pulmonary edema. Patient is still requiring oxygen. Will provide another dose of Lasix today. Potassium a little bit low we will continue with oral potassium replacement today. Monitor potassium again tomorrow. Once she gets her dose of Lasix will remove Perez catheter later this afternoon. Afebrile doubt pneumonia. Continue to monitor and work off oxygen status. DVT prophylaxis with Lovenox Disposition and plan diuresis today electrolyte replacement management of blood sugars ambulate pain control with Tylenol possible discharge tomorrow
[2022-09-10] MEDS: glipiZIDE 5 MG TABLET 2.5 MG PO (08:58)
[2022-09-10] MEDS: carvediloL 12.5 MG TABLET PO ×2 (08:59→21:58)
[2022-09-10] MEDS: FUROSEMIDE 40 MG/4 ML VIAL IV (08:59)
[2022-09-10] MEDS: HEPARIN 5,000 UNIT/ML VIAL 5000 UNIT SUBCUT ×2 (09:01→21:58)
--- NOTE | 2022-09-10 10:03 | PM.PNPO.1 ---
Subjective Subjective Date Patient Seen: 09/10/22 Time Patient Seen: 10:03 Interval history: Delirium overnight. Was unable to wean from oxygen yesterday. Tolerated regular diet without issue. Exam Vital Signs (past 8 hours): - 09/10/22 03:39 09/10/22 08:59 09/10/22 08:00 Temperature 97.9 F 97.1 F L Pulse Rate 67 68 68 Respiratory Rate 15 17 Blood Pressure 148/49 H 143/52 H 143/52 H Pulse Oximetry 95 97 Oxygen Delivery Method Oxygen Flow Rate 2 2 09/10/22 08:40 Temperature Pulse Rate Respiratory Rate Blood Pressure Pulse Oximetry 96 Oxygen Delivery Method Nasal Cannula Oxygen Flow Rate 2 Fraction of Inspired Oxygen 32 SaO2/FiO2 Ratio 303 Oxygen Delivery Method Nasal Cannula Oxygen Flow Rate 2 Narrative Exam Narrative: General elderly woman alert oriented no acute distress Abdomen soft dressing clean dry intact. Appropriately tender to palpation. 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) Diabetic neuropathy Essential hypertension Ischemic cardiomyopathy (2015) [place] (myocardial infarction) (10/2003) Mixed hyperlipidemia Myocardial infarction Nonrheumatic mitral valve regurgitation Peripheral edema Small bowel obstruction Small bowel obstruction (2016) Small bowel obstruction (11/20/17) Type 2 diabetes mellitus (06/30/12) Surgical History History of appendectomy (1973) History of cholecystectomy (1973) History of coronary artery stent placement (10/2003) Status post colonoscopy (2005) Status post coronary angiogram Status post epidural steroid injection (11/20/17) Status post exploratory laparotomy (11/20/17) Status post hysterectomy (1999) Family History Brother Colorectal cancer Mother CAD (coronary artery disease) Social History marital status: number of children: 5 household members: spouse lives independently: Yes caregiver/support person: No housing: house pets and animals: No education level: high school occupational status: other (Retired) 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 Anything that can be done with hands.) Smoking Status: Never smoker Tobacco: How many years used: 0 quit status: quit date established (Never Started) second hand exposure: No alcohol intake: current substance use type: does not use Assessment & Plan Post-op Postoperative Procedures: Procedures Operation Date: 09/06/22 11:15 Actual Procedure Side Surgeon p Exploratory Laparotomy GEN Not Applicable Shahzad Du MD Postoperative status narrative: 82-year-old woman postoperative day 4 status post exploratory laparotomy and lysis of adhesions for a small-bowel obstruction. She is recovering appropriately from surgery, has return of bowel function. -regular diet -remove Perez catheter after Lasix today -wean from oxygen -electrolyte replacement -anticipate discharge home tomorrow.
--- NOTE | 2022-09-10 10:15 | PT.IPTN ---
Current Diagnoses Partial intestinal obstruction, unspecified as to cause (09/04/22) Unspecified intestinal obstruction, unspecified as to partial versus complete obstruction (09/04/22) Surgery Performed Operation Date: 09/06/22 11:15 Actual Procedures p Exploratory Laparotomy GEN(Not Applicable) - Shahzad Du MD Physical Therapy Treatment Note M2 PT-IP Current Condition Start: 09/06/22 14:41 Freq: NEEDED Status: Active Protocol: Document 09/08/22 10:35 LRN (Rec: 09/08/22 17:08 LRN [id number]) Physical Therapy Current Condition Current Condition Evaluation Date 09/08/22 Treatment Diagnosis po day 1, Exploratory laparotomy, decreased mobility , [place]rance Onset Date 09/07/22 M3 PT-IP Subjective Start: 09/06/22 14:41 Freq: NEEDED Status: Active Protocol: Document 09/10/22 09:51 KS (Rec: 09/10/22 11:45 KS [id number]) Subjective Physical Therapy Visit Type Type Treatment Note Visit Start Time 09:51 Visit Stop Time 10:15 Total Visit Minutes 24 Notes O2 decreased from 2L to 1L. RN aware. Number of SENIOR LINUX ADMINISTRATOR Visits 2 Physical Therapy Visit Comments Patient Comments Family present during treatment. Patient Goals Pt goal is to be discharged home. Therapy Pain Assessment Pain When Pain Assessed At Rest Pain Present Pain Present Denied Pain M4 PT-IP Mobility and Gait Start: 09/06/22 14:41 Freq: NEEDED Status: Active Protocol: Document 09/10/22 09:51 KS (Rec: 09/10/22 11:45 KS [id number]) PT-Transfer Assessment Sit to and From Stand Sit to and from Stand Standby Assistance,1 Person Assistance,Use of Upper Extremities Equipment Transfer Assistive Device Front Wheeled Walker Orthotic/Prosthetic Devices or Brace: No Transfers Transfer Destination Chair Transfer Technique Pt ambulated Transfer Ability Level of Assist Standby Assistance,Contact Guard Assistance,1 Person Assistance Comments Mobility Comments Pt in chair upon arrival on 2L O2 97%. Pt SBA for sit<>stand w/ FWW and SBA to CGA for ambulation. She ambulated ~ 3x25 ft w/ FWW, first on 2L O2 , then 1L then RA. Pts O2 >90% throughout, but low 90s on RA , so placed back on 1L and RN notified. She demonstrated good use of FWW and had no LOB . Gait Assessment Gait Gait Assistance Required: Standby Assistance,Contact Guard Assist,1 Person Assist Distance (Feet) 75 Able to Maintain Weight Bearing Status Yes During Gait Assistive Devices Assistive Device Gait Belt,Front Wheeled Walker Orthotic/Prosthetic Devices or Brace: No Gait Deviations General Gait Pattern Decreased Stride Length, Decreased Feet Clearance Factors Limiting Gait Function Factors Limiting Gait Function Decreased Activity Tolerance Comments Gait Comments See mobility comments. Stair Climbing Assessment Comments Stair Climbing Comments Will attempt next session. Only 1 platform NAYANA. PT-Balance Assessment Sitting Balance and Reactions Static Sitting Balance Ability Normal Dynamic Sitting Balance Ability Good Standing Balance and Reactions Static Standing Balance Ability Good Dynamic Standing Balance Ability Good Device Used FWW M5 PT-IP Objective Assessments Start: 09/06/22 14:41 Freq: NEEDED Status: Active Protocol: Document 09/08/22 10:35 LRN (Rec: 09/08/22 17:08 LRN [id number]) Orientation Orientation/Cognition Level of Alertness Alert Orientation Name,Month,Year,Day of Week, Place,Situation Language Function Ability No Deficits Noted Safety Awareness Understands Safety Issues Memory Description No Deficits Noted Gross Range of Motion Upper Extremity ROM Assessment Within Functional Limits Lower Extremity ROM Assessment Within Functional Limits Strength Upper Extremity Strength Assessment Within Functional Limits Lower Extremity Strength Assessment Within Functional Limits Sensation Assessment Sensation Gross Sensation WNL Other Assessments Other Other Assessments Vitals: At rest in bed: BP is 153/66, HR 103, SpO2 95% on 2.5 L O2 via nc. After transfer into bedside chair: BP 170/62; HR 98, SpO2 95% on 2.5 L O2 via nc. M6 PT-IP Treatment Start: 09/06/22 14:41 Freq: NEEDED Status: Active Protocol: Document 09/10/22 09:51 KS (Rec: 09/10/22 11:45 KS [id number]) Physical Therapy Treatment Education Education Provided Precautions Other Treatments Other Treatment Performed Discussed safety w/ pts family . M7 PT-IP Assessment and Plan Start: 09/06/22 14:41 Freq: NEEDED Status: Active Protocol: Document 09/10/22 09:51 KS (Rec: 09/10/22 11:45 KS [id number]) PT Summary Assessment and Plan Potential Rehabilitation Potential Good Summary Impairments Bed Mobility,Transfers,Gait, Activity Tolerance Progress Towards Goals Progressing Toward Goals Assessment Summary Pt only requires SBA to CGA throughout treatment and denies abdominal pain. Required SBA to CGA for ambulation w/ FWW and was able to decrease O2 to 1L. Ambulated ~75 ft. She may benefit from stair training however I do not anticipate any issues. Goals Bed Mobility Goal Independent,Standby Assistance Transfer Goal Independent Gait Goal Independent,Front Wheel Walker Gait Distance 50' Other Goals 1. Pt able to ambulate at least 1 step with SBA/1 rail ( to mimic use of walker on 1 side since no railing is available). Note: family states spouse would be able to physically help pt on one side with step if needed. 2. Pt will be able to verbalize abdominal surgical precautions. 3. Wean pt from O2 via nc if approriate. Frequency of Treatment Frequency Of Treatment Once a Day Treatment Plan Physical Therapy Treatment Plan Bed Mobility Training,Transfer Training,Gait Training Precautions Abdominal Surgery Precautions Log Roll,Lifting Restrictions, Gait Belt above Incisional Area Weight Bearing Status Weight Bearing Status Weight Bear as Tolerated Recommendations To Nursing Amount of Assist Needed Standby Assistance,1 Person Assist Discharge Recommendations PT Discharge Recommendations Home with Assistance Equipment Needed for Home Before FWW, O2 home needs if Discharge appropriate. Transportation Needs at Discharge Private Vehicle
--- NOTE | 2022-09-10 10:22 | CM.DPC ---
DCP Cont: Discussed patient during team rounds, she is currently on 2 liters of oxygen, not at her baseline. Was suggested to call provider to see if she would be appropriate for a home oxygen eval. Called Dr. Sarmiento, since he did see patient today, mentioned the possibility of pulmonary edema. He wants her to have more diuresis before discharge. Did state a home oxygen eval with [facility] would be appropriate. Placed order, and called [facility] about the home oxygen eval, they are aware. P: DCP to continue to follow. Plan is home, could be tomorrow, may need home oxygen, respiratory will see patient for the eval. Meghna Mauro, JAZMIN/[employer]
[2022-09-10] MEDS: INSULIN REGULAR 100 UNIT/ML 3 ML VIAL SUBCUT ×2 (12:23→18:51)
[2022-09-10] MEDS: POTASSIUM CHLORIDE 20 MEQ/15 ML UDC PO (18:24)
[2022-09-10] MEDS: ATORVASTATIN 20 MG TABLET PO (18:24)
[2022-09-10] MEDS: ACETAMINOPHEN 325 MG TABLET 650 MG PO (22:18)
[2022-09-11] VITALS (8 sets, daily range): BP systolic 136–163; BP diastolic 56–61; PULSE 57–71; RESP 17–18; TEMP 36.1–36.6; O2SAT 94–97
[2022-09-11 05:21] LABS: BUN Creatinine Ratio 37.3 (6-22); Blood Urea Nitrogen 28 mg/dL (7-17); Calcium 7.8 mg/dL (8.4-10.2); Carbon Dioxide 38 mmol/L (22-32); Chloride 96 mmol/L (98-107); Estimated Glomerular Filt Rate > 60 mL/min (>60); Glucose 178 mg/dL (80-110); HEMOLYSIS < 15 (0-50); Potassium 3.1 mmol/L (3.4-5.1); Sodium 137 mmol/L (137-145)
--- NOTE | 2022-09-11 07:42 | P.PN_ITS ---
Subjective Subjective Date Patient Seen: 09/11/22 Time Patient Seen: 07:42 Interval history: Patient has done well without her NG tube and seems to show evidence of return of bowel function. Blood sugars improved Was found to be modestly hypoxic again last night and placed back on 1 L oxygen Exam Vital Signs (past 8 hours): - 09/11/22 00:27 09/11/22 04:30 Temperature 97.8 F 97.4 F L Pulse Rate 69 68 Respiratory Rate 18 18 Blood Pressure 163/58 H 161/60 H Pulse Oximetry 97 97 Oxygen Flow Rate 1 1 Fraction of Inspired Oxygen 32 SaO2/FiO2 Ratio 303 Oxygen Delivery Method Room Air Oxygen Flow Rate 1 Narrative Exam Narrative: Elderly female sitting up in a bedside chair in no obvious distress whatsoever HEENT unremarkable Lungs-clear with excellent air movement Heart-regular rate and rhythm normal S1-S2 Abdomen-positive bowel tones nondistended Objective Labs 09/08/22 04:50 09/11/22 04:30 Labs: Laboratory Results - last 24 hr 09/11/22 04:30 Sodium 137 Potassium 3.1 L Chloride 96 L Carbon Dioxide 38 H BUN 28 H Creatinine 0.75 Estimated GFR > 60 BUN/Creatinine Ratio 37.3 H Glucose 178 H Calcium 7.8 L PFSH Medical History Coronary artery disease involving [place] coronary artery of [place] heart without angina pectoris (10/2003) Diabetic neuropathy Essential hypertension Ischemic cardiomyopathy (2015) [place] (myocardial infarction) (10/2003) Mixed hyperlipidemia Myocardial infarction Nonrheumatic mitral valve regurgitation Peripheral edema Small bowel obstruction Small bowel obstruction (2016) Small bowel obstruction (11/20/17) Type 2 diabetes mellitus (06/30/12) Surgical History History of appendectomy (1973) History of cholecystectomy (1973) History of coronary artery stent placement (10/2003) Status post colonoscopy (2005) Status post coronary angiogram Status post epidural steroid injection (11/20/17) Status post exploratory laparotomy (11/20/17) Status post hysterectomy (1999) Family History Brother Colorectal cancer Mother CAD (coronary artery disease) Social History marital status: number of children: 5 household members: spouse lives independently: Yes caregiver/support person: No housing: house pets and animals: No education level: high school occupational status: other (Retired) 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 Anything that can be done with hands.) Smoking Status: Never smoker Tobacco: How many years used: 0 quit status: quit date established (Never Started) second hand exposure: No alcohol intake: current substance use type: does not use Assessment & Plan Assessment & Plan narrative: 1. Postop day 4 after exploratory laparotomy lysis of adhesions-appears to be recovering appropriately in probably ready for discharge 2. Diabetes-numbers much improved now back on her usual meds and with a more normal diet etcetera. She is also been a bit more active which is probably a contributing factor 3. Respiratory-patient modestly hypoxic last evening for reasons that are not clear. Encourage activity and wean oxygen off. Very seriously doubt she needs oxygen, and unsure about single low oxygen level documented last evening. 4. Fluids/electrolytes-potassium remains low. Will replace that orally this morning. Plan to continue this as an outpatient as well. Renal function has remained normal 5. Hypertension-patient is somewhat hypertensive here however I would like to get her into her home setting before adjusting her antihypertensive medications. Therefore no changes to her antihypertensive medications Overall patient is much improved and probably ready for discharge later today after opportunity for weaning off oxygen and replacing her potassium orally
[2022-09-11] MEDS: glipiZIDE 5 MG TABLET 2.5 MG PO (08:04)
[2022-09-11] MEDS: POTASSIUM CHLORIDE 20 MEQ/15 ML UDC PO (08:04)
[2022-09-11] MEDS: INSULIN REGULAR 100 UNIT/ML 3 ML VIAL SUBCUT ×2 (08:05→12:04)
[2022-09-11] MEDS: FUROSEMIDE 20 MG TABLET PO (08:05)
[2022-09-11] MEDS: carvediloL 12.5 MG TABLET PO (08:08)
[2022-09-11] MEDS: POTASSIUM CHLORIDE 20 MEQ TAB 40 MEQ PO ×2 (08:15→13:16)
--- NOTE | 2022-09-11 08:42 | CM.DPC ---
DCP Cont: Checked in with patient, doing better, not on oxygen. Daughter at bedside, is prepared to take her home when ready. Dr. Ray did see patient, may discharge later today, if stable. P: DCP to continue to follow. Patient may discharge later today as long as she remains stable. Meghna Mauro RN/[employer]
--- NOTE | 2022-09-11 09:00 | PT.IPTN ---
Current Diagnoses Partial intestinal obstruction, unspecified as to cause (09/04/22) Unspecified intestinal obstruction, unspecified as to partial versus complete obstruction (09/04/22) Surgery Performed Operation Date: 09/06/22 11:15 Actual Procedures p Exploratory Laparotomy GEN(Not Applicable) - Shahzad Du MD Physical Therapy Treatment Note M2 PT-IP Current Condition Start: 09/06/22 14:41 Freq: NEEDED Status: Active Protocol: Document 09/08/22 10:35 LRN (Rec: 09/08/22 17:08 LRN [id number]) Physical Therapy Current Condition Current Condition Evaluation Date 09/08/22 Treatment Diagnosis po day 1, Exploratory laparotomy, decreased mobility , endrance Onset Date 09/07/22 M3 PT-IP Subjective Start: 09/06/22 14:41 Freq: NEEDED Status: Active Protocol: Document 09/11/22 09:31 TS (Rec: 09/11/22 09:44 TS [id number]) Subjective Physical Therapy Visit Type Type Treatment Note Visit Start Time 09:00 Visit Stop Time 09:25 Total Visit Minutes 25 Notes Spo2 96-97% throughout treatment on RA. Number of HITCH TECHNICIAN Visits 3 Physical Therapy Visit Comments Patient Comments Family present during treatment. Patient Goals Pt goal is to be discharged home. M4 PT-IP Mobility and Gait Start: 09/06/22 14:41 Freq: NEEDED Status: Active Protocol: Document 09/11/22 09:31 TS (Rec: 09/11/22 09:44 TS [id number]) PT-Transfer Assessment Sit to and From Stand Sit to and from Stand Standby Assistance,Use of Upper Extremities Equipment Transfer Assistive Device Front Wheeled Walker Orthotic/Prosthetic Devices or Brace: No Comments Mobility Comments Pt found resting in chair, agreeable to PT session. SPo2 96% at rest pre-PT. Sit to stand x1 SBA with RUE on FWW, demonstrates good carryover of sequencing. Ambulated in hallway ~300' SBA with step thru gait, normal pacing, no buckling or LOB. She performed stairs x3 SBA with step to step, BUE handrail assist. Spo2 after treatment 97% on RA , pt was left in chair with daughter in room, call light nearby. Gait Assessment Gait Gait Assistance Required: Standby Assistance,Contact Guard Assist,1 Person Assist Distance (Feet) 300 Able to Maintain Weight Bearing Status Yes During Gait Assistive Devices Assistive Device Gait Belt,Front Wheeled Walker Orthotic/Prosthetic Devices or Brace: No Gait Deviations General Gait Pattern Decreased Stride Length, Decreased Feet Clearance Comments Gait Comments See mobility comments. Stair Climbing Assessment Evaluation Level of Assist On Stairs Standby Assistance Devices Stair Climbing Assistive Devices Left Railing,Right Railing Technique/Endurance Stair Climbing Direction Ascend and Descend Stair Climbing Technique Step to Step Number of Steps Climbed 3 Comments Stair Climbing Comments See mobility comments. PT-Balance Assessment Sitting Balance and Reactions Static Sitting Balance Ability Normal Dynamic Sitting Balance Ability Good Standing Balance and Reactions Static Standing Balance Ability Normal Dynamic Standing Balance Ability Good Device Used FWW M5 PT-IP Objective Assessments Start: 09/06/22 14:41 Freq: NEEDED Status: Active Protocol: Document 09/08/22 10:35 LRN (Rec: 09/08/22 17:08 LRN [id number]) Orientation Orientation/Cognition Level of Alertness Alert Orientation Name,Month,Year,Day of Week, Place,Situation Language Function Ability No Deficits Noted Safety Awareness Understands Safety Issues Memory Description No Deficits Noted Gross Range of Motion Upper Extremity ROM Assessment Within Functional Limits Lower Extremity ROM Assessment Within Functional Limits Strength Upper Extremity Strength Assessment Within Functional Limits Lower Extremity Strength Assessment Within Functional Limits Sensation Assessment Sensation Gross Sensation WNL Other Assessments Other Other Assessments Vitals: At rest in bed: BP is 153/66, HR 103, SpO2 95% on 2.5 L O2 via nc. After transfer into bedside chair: BP 170/62; HR 98, SpO2 95% on 2.5 L O2 via nc. M6 PT-IP Treatment Start: 09/06/22 14:41 Freq: NEEDED Status: Active Protocol: Document 09/11/22 09:31 TS (Rec: 09/11/22 09:44 TS [id number]) Physical Therapy Treatment Education Education Provided Precautions M7 PT-IP Assessment and Plan Start: 09/06/22 14:41 Freq: NEEDED Status: Active Protocol: Document 09/11/22 09:31 TS (Rec: 09/11/22 09:44 TS [id number]) PT Summary Assessment and Plan Potential Rehabilitation Potential Good Summary Impairments Bed Mobility,Transfers,Gait, Activity Tolerance Progress Towards Goals Progressing Toward Goals Assessment Summary Pt progressed ambulation to ~ 300 SBA, denied any SOB, dizziness, no signs of buckling or LOB. She performed stairs x3 with step to step SBA, no LOB. Pt is currently on RA at 96% pre-PT, 97% post Pt. PT recommends return home with assist from family. Goals Bed Mobility Goal Independent,Standby Assistance Transfer Goal Independent Gait Goal Independent,Front Wheel Walker Gait Distance 50' Other Goals 1. Pt able to ambulate at least 1 step with SBA/1 rail ( to mimic use of walker on 1 side since no railing is available). Note: family states spouse would be able to physically help pt on one side with step if needed. 2. Pt will be able to verbalize abdominal surgical precautions. 3. Wean pt from O2 via nc if approriate. Frequency of Treatment Frequency Of Treatment Once a Day Treatment Plan Physical Therapy Treatment Plan Bed Mobility Training,Transfer Training,Gait Training Precautions Abdominal Surgery Precautions Log Roll,Lifting Restrictions, Gait Belt above Incisional Area Weight Bearing Status Weight Bearing Status Weight Bear as Tolerated Recommendations To Nursing Amount of Assist Needed 1 Person Assist Discharge Recommendations PT Discharge Recommendations Home with Assistance Equipment Needed for Home Before FWW, O2 home needs if Discharge appropriate. Transportation Needs at Discharge Private Vehicle
--- NOTE | 2022-09-11 12:05 | P.PN_ITS ---
Subjective Subjective Date Patient Seen: 09/11/22 Interval history: No acute overnight events. Tolerating a regular diet with no nausea vomiting. Having bowel movements. Has weaned off oxygen over the past 24 hours. Exam Vital Signs (past 8 hours): - 09/11/22 04:30 09/11/22 08:08 09/11/22 08:00 Temperature 97.4 F L 97.3 F L Pulse Rate 68 71 71 Respiratory Rate 18 17 Blood Pressure 161/60 H 141/61 H 141/61 H Pulse Oximetry 97 94 Oxygen Delivery Method Oxygen Flow Rate 1 1 09/11/22 08:24 09/11/22 08:10 09/11/22 07:00 Temperature Pulse Rate Respiratory Rate Blood Pressure Pulse Oximetry 94 97 94 Oxygen Delivery Method Room Air Nasal Cannula Room Air Oxygen Flow Rate 1 0 Fraction of Inspired Oxygen 32 SaO2/FiO2 Ratio 303 Oxygen Delivery Method Room Air Oxygen Flow Rate 1 Narrative Exam Narrative: General adult woman alert oriented no acute distress Abdomen soft appropriately tender to palpation. Midline incision is clean dry intact with meek beneath the dressing. Objective Labs 09/08/22 04:50 09/11/22 04:30 Labs: Laboratory Results - last 24 hr 09/11/22 04:30 Sodium 137 Potassium 3.1 L Chloride 96 L Carbon Dioxide 38 H BUN 28 H Creatinine 0.75 Estimated GFR > 60 BUN/Creatinine Ratio 37.3 H Glucose 178 H Calcium 7.8 L PFSH Medical History Coronary artery disease involving [place] coronary artery of [place] heart without angina pectoris (10/2003) Diabetic neuropathy Essential hypertension Ischemic cardiomyopathy (2015) [place] (myocardial infarction) (10/2003) Mixed hyperlipidemia Myocardial infarction Nonrheumatic mitral valve regurgitation Peripheral edema Small bowel obstruction Small bowel obstruction (2016) Small bowel obstruction (11/20/17) Type 2 diabetes mellitus (06/30/12) Surgical History History of appendectomy (1973) History of cholecystectomy (1973) History of coronary artery stent placement (10/2003) Status post colonoscopy (2005) Status post coronary angiogram Status post epidural steroid injection (11/20/17) Status post exploratory laparotomy (11/20/17) Status post hysterectomy (1999) Family History Brother Colorectal cancer Mother CAD (coronary artery disease) Social History marital status: number of children: 5 household members: spouse lives independently: Yes caregiver/support person: No housing: house pets and animals: No education level: high school occupational status: other (Retired) 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 Anything that can be done with hands.) Smoking Status: Never smoker Tobacco: How many years used: 0 quit status: quit date established (Never Started) second hand exposure: No alcohol intake: current substance use type: does not use Assessment & Plan Post-op Postoperative Procedures: Procedures Operation Date: 09/06/22 11:15 Actual Procedure Side Surgeon p Exploratory Laparotomy GEN Not Applicable Shahzad Du MD Postoperative status narrative: 82-year-old woman postoperative day 5 status post exploratory laparotomy for a small-bowel obstruction. She is doing well has recovered with normal bowel function. No further inpatient surgical needs. No lifting greater than 20 lb for the next 1 month. Follow up in surgical clinic in 1-1/2 to 2 weeks for staple removal
[2022-09-11] MEDS: ACETAMINOPHEN 325 MG TABLET 650 MG PO (13:22)
--- NOTE | 2022-09-11 13:44 | PM.DS.1 ---
History of Present Illness History of Present Illness Date Patient Seen: 09/11/22 Time Patient Seen: 13:45 Chief complaint: ABD pain Narrative: This is a very pleasant 82-year-old female with a past medical history of coronary artery disease, ischemic cardiomyopathy, hyperlipidemia and type 2 diabetes who has a history of recurrent small-bowel obstructions and presented to the ER yesterday with day of onset abdominal pain associated with nausea and no flatus.? Last bowel movement was yesterday with no flatus since.? Nauseous no emesis.? She is a history of prior small bowel obstruction requiring exploratory laparotomy [address] Vo.? She has had multiple episodes of partial small bowel obstruction which have resolved non operatively. ER workup demonstrated that she had a partial bowel obstruction at the anastomosis in the right abdomen.? This correlates to her pain.? Patient had a previous event in 2003 that she thought was a partial bowel obstruction and turned out that she had coronary artery disease in his stent was placed.? She sees Dr. Sellers while on a regular basis and recently saw him and he started her on carvedilol. Patient has otherwise been in her usual state of health.? In fact she just saw her PCP, Dr. Ray who felt she was doing well and hemoglobin A1c was 7.4. Patient recently saw Dr. Verito kumar as well.? Note was reviewed Patient denies any bloody stools or diarrhea.? Patient denies any fever or unintentional weight loss or weight gain.? Patient denies any chest pain or shortness of breath or PND or orthopnea.? Patient denies any lower extremity edema.? She does take furosemide as needed for edema but has not had to do that recently.? Her blood pressure has been good and she is been feeling okay and the carvedilol. {from Dr. Stewart's H&P 09/05/22} Discharge Providers Provider Date of admission: 09/04/22 23:19 Discharge Date: 09/11/22 Primary care physician: Walt Ray MD Consults: 09/04/22 23:18 Consult to General Surgery Urgent Comment: Consulting Provider: Shahzad Du Reason for consultation: small bowel obstruction Has provider been notified: Yes 09/06/22 13:07 Consult to Physical Therapy Evaluate & Treat Comment: Physician Instructions: Evaluate and Treat Discharge provider: Walt Ray MD Summary Hospital Course Discharge Diagnosis: 1. Small-bowel obstruction secondary to intra-abdominal adhesions with evidence of small bowel ischemia 2. Status post exploratory laparotomy for small-bowel obstruction, status post lysis of adhesions. No intestinal resection required 3. Diabetes type 2 3. Hypertension 4. Acute on chronic congestive heart failure with reduced ejection fraction 5. Coronary artery disease, not active this hospitalization 6. Acute kidney injury, resolved Hospital Course: Patient was admitted as noted above. She did not improve with conservative therapy underwent diagnostic imaging studies which demonstrated complete obstruction. She went to surgery for exploration and lysis of adhesions. With this an area of concern was located and corrected. No bowel resection was required. Patient had an uneventful postoperative course with eventual return of bowel function. She was able to eat normally and passing gas, and having bowel movements. She was felt to be stable for discharge from a surgical standpoint on day of discharge Patient's blood sugar somewhat elevated went off of her usual medications and being kept NPO. This improved rapidly as patient's activity improved and she was placed back on her meds once her bowel function returned Patient showed evidence of some volume overload/congestive heart failure likely due to fluid shifts. She required some doses of parental furosemide which had the expected response and she improved rapidly. She had a normal oxygen saturation on room air at time of discharge and was asymptomatic. Patient also demonstrated some evidence of acute kidney injury in the immediate perioperative period. This resolved completely prior to discharge Status at Discharge Cognitive/behavioral status at discharge: oriented Functional status at discharge: independent ambulation Overall status at discharge: patient is progressing back to baseline Exam Vital Signs (past 8 hours): - 09/11/22 08:08 09/11/22 08:00 09/11/22 08:24 Temperature 97.3 F L Pulse Rate 71 71 Respiratory Rate 17 Blood Pressure 141/61 H 141/61 H Pulse Oximetry 94 94 Oxygen Delivery Method Room Air Oxygen Flow Rate 1 09/11/22 08:10 09/11/22 07:00 09/11/22 12:00 Temperature 97.0 F L Pulse Rate 57 L Respiratory Rate 17 Blood Pressure 136/56 L Pulse Oximetry 97 94 94 Oxygen Delivery Method Nasal Cannula Room Air Oxygen Flow Rate 1 0 0 Fraction of Inspired Oxygen 32 SaO2/FiO2 Ratio 303 Oxygen Delivery Method Room Air Oxygen Flow Rate 0 Objective Labs 09/08/22 04:50 09/11/22 04:30 Labs: Laboratory Results - last 24 hr 09/11/22 04:30 Sodium 137 Potassium 3.1 L Chloride 96 L Carbon Dioxide 38 H BUN 28 H Creatinine 0.75 Estimated GFR > 60 BUN/Creatinine Ratio 37.3 H Glucose 178 H Calcium 7.8 L PFSH Medical History Coronary artery disease involving [place] coronary artery of [place] heart without angina pectoris (10/2003) Diabetic neuropathy Essential hypertension Ischemic cardiomyopathy (2016) [place] (myocardial infarction) (10/2003) Mixed hyperlipidemia Myocardial infarction Nonrheumatic mitral valve regurgitation Peripheral edema Small bowel obstruction Small bowel obstruction (2016) Small bowel obstruction (11/20/17) Type 2 diabetes mellitus (06/30/12) Surgical History History of appendectomy (1973) History of cholecystectomy (1973) History of coronary artery stent placement (10/2003) Status post colonoscopy (2005) Status post coronary angiogram Status post epidural steroid injection (11/20/17) Status post exploratory laparotomy (11/20/17) Status post hysterectomy (1999) Family History Brother Colorectal cancer Mother CAD (coronary artery disease) Social History marital status: number of children: 5 household members: spouse lives independently: Yes caregiver/support person: No housing: house pets and animals: No education level: high school occupational status: other (Retired) 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 Anything that can be done with hands.) Smoking Status: Never smoker Tobacco: How many years used: 0 quit status: quit date established (Never Started) second hand exposure: No alcohol intake: current substance use type: does not use Discharge Plan Discharge Plan Patient Disposition: Home Discharge orders & Medications Prescriptions: New potassium chloride 20 mEq tablet extended release 20 meq PO DAILY Qty: 90 3RF Continued ASPIRIN (Aspirin EC) 81 mg PO DAILY Qty: 90 3RF Glucosamine Sulfate (GLUCOSAMINE) 1,000 mg PO BID Qty: 0 [FATOUMATA RED] 350 mg PO QDAY Qty: 0 (DME) lancets 33 gauge misc See Rx Instructions .Route Qty: 100 11RF Rx Instructions: Use to check blood sugars 1-2x a day as needed. (DME) OneTouch Ultra Test Strip See Rx Instructions .Route Qty: 100 11RF Rx Instructions: Use to check blood sugars 1-2x a day as needed simvastatin 40 mg tablet 40 mg PO QPM Qty: 90 2RF diclofenac sodium 50 mg tablet,delayed release (DR/EC) See Rx Instructions .ROUTE .COMPLEX Qty: 90 3RF Dose Instruction: Take one tablet by mouth one time daily Rx Instructions: Take one tablet by mouth one time daily glipizide 2.5 mg tablet extended release 24hr 2.5 mg PO DAILY Qty: 90 3RF Protandum 1 tab PO DAILY carvedilol 12.5 mg tablet 12.5 mg PO BID Patient Comments: TAKE ONE TABLET BY MOUTH TWICE DAILY WITH MEALS Changed furosemide 20 mg tablet 20 mg PO DAILY Qty: 90 3RF Rx Instructions: Patient sometimes takes every other day. Depending on swelling Follow up/Referrals: Walt Ray MD [Primary Care Provider] - 2 Weeks (2-3 weeks is fine) Shahzad Du MD [Physician] - 2 Weeks (10-[address] Du) Discharge Health Status Multidrug resistant organism: No MDRO Visit Report/Discharge Packet Stand Alone Forms: Patient Portal/API Discharge Data Primary Care Provider: Walt Ray
== END 2022-09-11 15:22 | disposition home or self-care (01) | DRG 335 ==
LOC: ED 23:18 → AC 23:20
PROVIDERS: Family Medicine; Surgery; Admitting Provider Family Medicine; Emergency Provider Emergency Medicine; Family Provider Internal Medicine Cardiovascular Disease; PCP Internal Medicine; Referring Provider Emergency Medicine; Visit Provider Internal Medicine
PROC: 0DN80ZZ Release Small Intestine, Open Approach (ICD-10-PCS; CPT 49000; principal; 2022-09-06 11:15)
DX: K56.51 Intestinal adhesions [bands], with partial obstruction (principal); I50.23 Acute on chronic systolic (congestive) heart failure; N17.9 Acute kidney failure, unspecified; I25.5 Ischemic cardiomyopathy; I25.10 Atherosclerotic heart disease of native coronary artery without angina pectoris; E11.9 Type 2 diabetes mellitus without complications; E78.5 Hyperlipidemia, unspecified; R09.02 Hypoxemia; I11.0 Hypertensive heart disease with heart failure; Z20.822 Contact with and (suspected) exposure to COVID-19; Z66 Do not resuscitate; Z79.84 Long term (current) use of oral hypoglycemic drugs
CPT/HCPCS: 36415; 44005; 71045; 74018; 74177; 76770; 80048; 80053; 82550; 82553; 82962; 83605; 83690; 83735; 83880; 84484; 85007; 85025; 87040; 87635; 93005; 93010; 94618; 94760; 97116; 97162; 97530; 99222; 99232; 99233; 99238; 99284; C9803; J0330; J1170; J1644; J1885; J1940; J2270; J2405; J2543; J2704; J2765; J3010; Q9967

== ENCOUNTER → 2022-09-25 10:56 | Outpatient (CLI) | payer MEDICARE, OTHER, SELFPAY ==
[2022-09-25 12:39] LABS: BUN Creatinine Ratio 30.3 (6-22); Blood Urea Nitrogen 40 mg/dL (7-17); Carbon Dioxide 24 mmol/L (22-32); Chloride 103 mmol/L (98-107); Estimated Glomerular Filt Rate 40 mL/min (>60); Glucose 188 mg/dL (80-110); HEMOLYSIS < 15 (0-50); Potassium 4.7 mmol/L (3.4-5.1); Sodium 140 mmol/L (137-145)
== END ==
PROVIDERS: Family Provider Internal Medicine Cardiovascular Disease; PCP Internal Medicine; Referring Provider Internal Medicine; Visit Provider Internal Medicine
DX: I10 Essential (primary) hypertension (principal); R60.9 Edema, unspecified
CPT/HCPCS: 36415; 80048

== ENCOUNTER → 2023-03-05 11:50 | Outpatient (CLI) | payer MEDICARE, OTHER, SELFPAY ==
[2023-03-05 13:22] LABS: Alanine Aminotransferase 38 IU/L (<35); Albumin 4.2 g/dL (3.5-5.0); Albumin Globulin Ratio 1.4 (1.0-2.8); Alkaline Phosphatase 63 U/L (38-126); Aspartate Aminotransferase 34 IU/L (14-36); Bilirubin Total 0.5 mg/dL (0.2-1.3); Blood Urea Nitrogen 41 mg/dL (7-17); Carbon Dioxide 23 mmol/L (22-32); Chloride 105 mmol/L (98-107); Cholesterol 145 mg/dL (140-199); Estimated Glomerular Filt Rate 47 mL/min (>60); Globulin 2.9 g/dL (1.7-4.1); Glucose 124 mg/dL (80-110); HDL Cholesterol 40 mg/dL (40-60); HEMOLYSIS < 15 (0-50); LDL Cholesterol Calculated 78 mg/dL (<100); Sodium 138 mmol/L (137-145); Total Protein 7.1 g/dL (6.3-8.2); Triglycerides 134 mg/dL (35-150)
[2023-03-05 15:09] LABS: Creatinine Urine Random 121.2 mg/dL
[2023-03-05 15:15] LABS: Microalbumi Creatinin Ratio Ur 10.7 ug/mg CR (<30); Microalbumin Urine Random 1.3 mg/dL (0-1.6)
[2023-03-05 16:08] LABS: Hemoglobin A1C% w Est Avg Glu 7.3 % (4.0-6.0)
== END ==
PROVIDERS: Family Provider Internal Medicine Cardiovascular Disease; PCP Internal Medicine; Referring Provider Internal Medicine; Visit Provider Internal Medicine
DX: E11.9 Type 2 diabetes mellitus without complications (principal); I10 Essential (primary) hypertension; I25.5 Ischemic cardiomyopathy
CPT/HCPCS: 36415; 80053; 80061; 82043; 82570; 83036

== ENCOUNTER → 2023-09-03 11:28 | Outpatient (CLI) | payer OTHER, SELFPAY ==
[2023-09-03 12:23] LABS: Hemoglobin A1C% w Est Avg Glu 7.5 % (4.0-6.0)
[2023-09-03 12:33] LABS: Alanine Aminotransferase 30 IU/L (<35); Albumin 3.8 g/dL (3.5-5.0); Albumin Globulin Ratio 1.3 (1.0-2.8); Alkaline Phosphatase 63 U/L (38-126); Aspartate Aminotransferase 33 IU/L (14-36); BUN Creatinine Ratio 27.5 (6-22); Bilirubin Total 0.5 mg/dL (0.2-1.3); Blood Urea Nitrogen 30 mg/dL (7-17); Calcium 9.3 mg/dL (8.4-10.2); Carbon Dioxide 27 mmol/L (22-32); Chloride 108 mmol/L (98-107); Cholesterol 131 mg/dL (140-199); Estimated Glomerular Filt Rate 50 mL/min (>60); Glucose 147 mg/dL (80-110); HDL Cholesterol 45 mg/dL (40-60); HEMOLYSIS < 15 (0-50); LDL Cholesterol Calculated 62 mg/dL (<100); Potassium 4.6 mmol/L (3.4-5.1); Sodium 138 mmol/L (137-145); Total Protein 6.8 g/dL (6.3-8.2); Triglycerides 118 mg/dL (35-150)
== END ==
PROVIDERS: Family Provider Internal Medicine Cardiovascular Disease; PCP Internal Medicine; Referring Provider Internal Medicine; Visit Provider Internal Medicine
DX: I10 Essential (primary) hypertension (principal); E11.9 Type 2 diabetes mellitus without complications
CPT/HCPCS: 36415; 80053; 80061; 83036

== ENCOUNTER → 2023-10-25 06:48 | Outpatient (CLI) | payer OTHER, SELFPAY ==
--- NOTE | 2023-10-25 06:49 | DI.ECHO.S_ITS ---
[facility]+ [facility] : : [address] : : [place] : : [id number] : : Phone: [phone] Echocardiogram Report + + :Name: BROCK ADAME Study Date: 10/25/2023 Height: 60 in : :Hospital ReadingLocation: Weight: 175 lb : : Gender: Female BSA: 1.8 m2 : :: 1940 Age: 83 yrs BP: 166/74 mmHg: :Reason For Study: ISCHEMIC CARDIOMYOPATHY : :Ordering Physician: JASMINA, : :VIKAS Sousa Performed By: Ronna Gagnon : :Referring: VIKAS RFEEDMAN W : + + Interpretation Summary Left ventricle moderately dilated. The ejection fraction is estimated to be 35-40%. There is thinning and akinesis of the mid and distal septum extending to and including the apex and distal anterior and inferior segments. No significant change from the previous study. Previous LVEF about 30 to 35%. The right ventricle is normal in size and function. There is mild to moderate mitral regurgitation. Previously mild MR. There is mild aortic regurgitation. Previously as per the report, no AI. There is mild tricuspid regurgitation. Compared to the prior echo exam, there has been no change in TR severity. The IVC is of normal diameter and collapses greater than 50% with a sniff. This suggests a low right atrial pressure of 3 mm Hg. Procedure: A two-dimensional transthoracic echocardiogram with color flow and Doppler was performed. Comparison is made with the echocardiogram of 11/11/2015. The study quality was technically difficult. A contrast injection of Definity was performed to improve assessment of LV function. The patient was in sinus bradycardia with heart rates between 48-60 bpm during the exam. Left Ventricle: The left ventricle is moderately dilated. There is normal left ventricular wall thickness. There is no thrombus. The ejection fraction is estimated to be 35-40%. There is thinning and akinesis of the mid and distal septum extending to and including the apex and distal anterior and inferior segments. No significant change from the previous study. Previous LVEF about 30 to 35%. Diastolic parameters suggest a relaxation abnormality of the left ventricle, consistent with probable normal filling pressures. Right Ventricle: The right ventricle is normal in size and function. Atria: The left atrium is severely dilated. The left atrium has significantly increased in size since the prior echo exam. Right atrial size is normal. There is no Doppler evidence for an interatrial shunt. Mitral Valve: The mitral valve is normal. There is mild to moderate mitral regurgitation. Aortic Valve: The aortic valve is trileaflet. The aortic valve opens well. There is no aortic valve stenosis. There is mild aortic regurgitation. Tricuspid Valve: The tricuspid valve is normal. There is mild tricuspid regurgitation. Compared to the prior echo exam, there has been no change in TR severity. Pulmonary artery pressures cannot be estimated because of the lack of a measurable TR jet velocity. Pulmonic Valve: The pulmonic valve leaflets are thin and pliable; valve motion is normal. There is trace pulmonic regurgitation. Great Vessels: The aortic root is normal size. The dimensions of the ascending aorta are normal. The IVC is of normal diameter and collapses greater than 50% with a sniff. This suggests a low right atrial pressure of 3 mm Hg. Pericardium/ Pleura There is no pericardial effusion. There is no pleural effusion. MMode/2D Measurements & Calculations LVIDd: 6.2 cm LVOT diam: 2.0 cm LVIDs: 4.8 cm Ao root diam: 3.3 cm FS: 21.9 % asc Aorta Diam: 3.2 cm IVSd: 0.82 cm Ao Arch Diam (Prox Trans): 2.6 cm LVPWd: 0.80 cm LV clay. diameter/BSA (cm/m^2): 3.5 LV sys. diameter/BSA (cm/m^2): 2.7 LA A2 area: 24.9 cm2 RA long axis: 5.6 cm LA A4 area: 21.5 cm2 RA area: 17.9 cm2 LA length (vol): 5.3 cm RA vol: 48.5 ml LA vol: 86.3 ml RA : 27.5 ml/m2 LA vol index: 49.0 ml/m2 IVC diam: 1.4 cm RVD1 (basal): 3.9 cm TAPSE: 1.7 cm Doppler Measurements & Calculations Ao V2 max: 114.6 cm/sec LVOT Max Dinesh: 67.1 cm/sec Ao V2 mean: 84.0 cm/sec LV V1 max P.8 mmHg Ao max P.3 mmHg LV V1 VTI: 16.8 cm Ao mean P.1 mmHg WING(I,D): 1.7 cm2 Ao V2 VTI: 29.1 cm WING(V,D): 1.8 cm2 sev ratio: 0.58 WING indexed to BSA (cm^2/m^2): 0.98 MV E max dinesh: 61.2 cm/sec PA V2 max: 98.3 cm/sec MV A max dinesh: 69.8 cm/sec PA V2 mean: 69.7 cm/sec MV E/A: 0.88 PA mean P.1 mmHg Med Peak E' Dinesh: 4.2 cm/sec PA pr(Accel): 32.8 mmHg E/E' med: 14.5 Lat Peak E' Dinesh: 6.3 cm/sec E/E' lat: 9.7 E/e' average: 12.1 MV dec time: 0.23 sec SV(LVOT): 50.3 ml Reading Physician:05:26 PM
--- NOTE | 2023-10-25 21:48 | DI.NM.S_ITS ---
DATE OF SERVICE: 10/25/2023 PROCEDURE: Pharmacological perfusion study. INDICATIONS: History of ST-elevation anterior wall AR in October 2003, with occluded proximal LAD with LV ejection fraction 30% to 35% with underlying hypertension, hyperlipidemia, ischemic cardiomyopathy with HFrEF. RADIOPHARMACEUTICAL: 25.5 mCi technetium-99m Myoview IV was injected at stress and 11.4 mCi technetium-99m Myoview IV was injected at rest. CARDIAC STRESS: The patient underwent pharmacological perfusion study under the supervision of an attending staff. The patient received IV Lexiscan as per protocol. The patient remained hemodynamically stable. Baseline rhythm was sinus with sinus bradycardia with borderline first- degree AV block, evidence of old anterior wall AR, anterolateral T-wave inversion, left axis. During stress, no new convincing ischemic changes. Rare PVCs. The patient had minimal dyspnea. No chest discomfort. Remained hemodynamically stable. RAW DATA: There is increased subdiaphragmatic activity. GATED STUDY: Stress and resting LV ejection fraction 42% with severely hypokinetic [id number] anterior wall, apex as well as distal inferior wall. MYOCARDIAL PERFUSION SCAN: Stress supine, resting supine, and stress prone images were compared to each other. 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 CONCLUSION: This is an abnormal myocardial perfusion study consistent with severe infarction in the proximal LAD territory without any significant ischemia. No significant change from the previous perfusion study of September 2015. At that time, the patient had exercise perfusion study. This is a pharmacological perfusion study. TID ratio 1.37 in the setting of pharmacological perfusion study. Lung/heart ratio 0.59, which is abnormal, suggestive of elevated LV filling pressure. Stress and resting LV ejection fraction 42%. Resting end-diastolic volume 154 mL. Vilma Russell - REGIONAL [employer]IMATE CHANGE ANALYST/fn/DE doc#: [id number]/job#: [id number] dd: 10/25/2023 16:46:00 dt: 10/25/2023 20:42:00 DICTATING MD/COPIES TO: Bob Franco MD COPIES MNE: DIMITRI;
== END ==
PROVIDERS: Family Provider Internal Medicine Cardiovascular Disease; PCP Internal Medicine; Referring Provider Nurse Practitioner; Visit Provider Nurse Practitioner
DX: I25.5 Ischemic cardiomyopathy (principal); I08.3 Combined rheumatic disorders of mitral, aortic and tricuspid valves; R94.39 Abnormal result of other cardiovascular function study
CPT/HCPCS: 78452; 93017; 93306; A9502; J2785

== ENCOUNTER → 2024-03-03 12:01 | Outpatient (CLI) | payer OTHER, SELFPAY ==
[2024-03-03 13:53] LABS: Alanine Aminotransferase 25 IU/L (<35); Albumin Globulin Ratio 1.3 (1.0-2.8); Alkaline Phosphatase 72 U/L (38-126); Aspartate Aminotransferase 33 IU/L (14-36); BUN Creatinine Ratio 23.6 (6-22); Bilirubin Total 0.5 mg/dL (0.2-1.3); Blood Urea Nitrogen 25 mg/dL (7-17); Calcium 9.6 mg/dL (8.4-10.2); Carbon Dioxide 24 mmol/L (22-32); Chloride 105 mmol/L (98-107); Cholesterol 135 mg/dL (140-199); Estimated Glomerular Filt Rate 51 mL/min (>60); Globulin 3.1 g/dL (1.7-4.1); Glucose 144 mg/dL (80-110); HDL Cholesterol 41 mg/dL (40-60); HEMOLYSIS < 15 (0-50); LDL Cholesterol Calculated 65 mg/dL (<100); Potassium 4.8 mmol/L (3.4-5.1); Sodium 136 mmol/L (137-145); Total Protein 7.1 g/dL (6.3-8.2); Triglycerides 144 mg/dL (35-150)
== END ==
PROVIDERS: Family Provider Internal Medicine Cardiovascular Disease; PCP Internal Medicine; Referring Provider Internal Medicine; Visit Provider Internal Medicine
DX: E11.9 Type 2 diabetes mellitus without complications (principal); I10 Essential (primary) hypertension; I25.5 Ischemic cardiomyopathy
CPT/HCPCS: 80053; 80061; 83036

== ENCOUNTER → 2024-03-15 15:13 | Outpatient (CLI) | payer OTHER, SELFPAY ==
--- NOTE | 2024-03-15 15:16 | DI.RAD.S_ITS ---
PROCEDURE: XR CHEST 2V INDICATIONS: persistent cough/possible infection TECHNIQUE: 2 views of the chest were acquired. COMPARISON: [facility], CR, XR CHEST 1V, 09/08/2022, 17:25. FINDINGS: New mild to moderate bilateral diffuse predominantly perihilar and lower lobe peribronchial thickening and patchy alveolar opacities more than expected for expiratory result and bibasilar subsegmental atelectasis. Bronchitis, viral infection, asthma, bronchopneumonia or other cause should be considered. Mildly enlarged cardiopericardial silhouette less than on the prior exam. Mildly prominent loyd, mildly prominent pulmonary vessels less than the prior exam. Mild calcifications of the aortic arch unchanged. Moderate degenerative changes of the thoracic spine with dextroscoliosis some of which may be artifact from positioning unchanged. No pneumothorax, no pleural effusion, no lobar consolidation. IMPRESSION: New mild to moderate bilateral peribronchial thickening and patchy alveolar opacities as discussed above. Mildly enlarged cardiopericardial silhouette less than on the prior exam. Mildly prominent pulmonary vessels less than the prior exam. Follow-up suggested. If symptoms persist or worsen, CT chest could be performed. Dictated by: Jonny Ovalle M.D. on 03/18/2024 at 8:28 Approved by: Jonny Ovalle M.D. on 03/18/2024 at 8:40
== END ==
LOC: RAD 15:16
PROVIDERS: Family Provider Internal Medicine Cardiovascular Disease; PCP Internal Medicine; Referring Provider Internal Medicine; Visit Provider Internal Medicine
DX: R05.3 Chronic cough (principal)
CPT/HCPCS: 71046

== ENCOUNTER → 2024-09-01 11:55 | Outpatient (CLI) | payer OTHER, SELFPAY ==
[2024-09-01 13:14] LABS: Alanine Aminotransferase 31 IU/L (<35); Albumin 4.2 g/dL (3.5-5.0); Albumin Globulin Ratio 1.6 (1.0-2.8); Alkaline Phosphatase 68 U/L (38-126); Aspartate Aminotransferase 42 IU/L (14-36); BUN Creatinine Ratio 23.2 (6-22); Bilirubin Total 0.7 mg/dL (0.2-1.3); Blood Urea Nitrogen 26 mg/dL (7-17); Carbon Dioxide 24 mmol/L (22-32); Chloride 106 mmol/L (98-107); Cholesterol 142 mg/dL (140-199); Estimated Glomerular Filt Rate 48 mL/min (>60); Globulin 2.6 g/dL (1.7-4.1); Glucose 133 mg/dL (80-110); HDL Cholesterol 44 mg/dL (40-60); HEMOLYSIS < 15 (0-50); LDL Cholesterol Calculated 74 mg/dL (<100); Potassium 4.9 mmol/L (3.4-5.1); Sodium 139 mmol/L (137-145); Total Protein 6.8 g/dL (6.3-8.2); Triglycerides 119 mg/dL (35-150)
== END ==
PROVIDERS: Family Provider Internal Medicine Cardiovascular Disease; PCP Internal Medicine; Referring Provider Internal Medicine; Visit Provider Internal Medicine
DX: E11.9 Type 2 diabetes mellitus without complications (principal); I10 Essential (primary) hypertension
CPT/HCPCS: 36415; 80053; 80061; 83036

== ENCOUNTER → 2024-11-06 11:29 | Outpatient (CLI) | payer OTHER, SELFPAY ==
[2024-11-06 13:31] LABS: BUN Creatinine Ratio 25.2 (6-22); Blood Urea Nitrogen 27 mg/dL (7-17); Calcium 9.6 mg/dL (8.4-10.2); Carbon Dioxide 22 mmol/L (22-32); Chloride 108 mmol/L (98-107); Estimated Glomerular Filt Rate 51 mL/min (>60); Glucose 127 mg/dL (70-99); HEMOLYSIS < 15 (0-50); Potassium 5.3 mmol/L (3.4-5.1); Sodium 137 mmol/L (137-145)
== END ==
LOC: LAB 11:30
PROVIDERS: Nurse Practitioner; Family Provider Internal Medicine Cardiovascular Disease; PCP Internal Medicine; Referring Provider Internal Medicine; Visit Provider Internal Medicine
DX: E11.42 Type 2 diabetes mellitus with diabetic polyneuropathy (principal); I10 Essential (primary) hypertension; E78.2 Mixed hyperlipidemia
CPT/HCPCS: 36415; 80048

== ENCOUNTER → 2024-11-23 12:43 | Outpatient (CLI) | payer OTHER, SELFPAY ==
[2024-11-23 13:28] LABS: Blood Urea Nitrogen 31 mg/dL (7-17); Calcium 9.3 mg/dL (8.4-10.2); Carbon Dioxide 27 mmol/L (22-32); Chloride 104 mmol/L (98-107); Estimated Glomerular Filt Rate > 60 mL/min (>60); Glucose 196 mg/dL (70-99); HEMOLYSIS < 15 (0-50); Potassium 4.5 mmol/L (3.4-5.1); Sodium 137 mmol/L (137-145)
== END ==
PROVIDERS: Family Provider Internal Medicine Cardiovascular Disease; PCP Internal Medicine; Referring Provider Internal Medicine; Visit Provider Internal Medicine Cardiovascular Disease
DX: I10 Essential (primary) hypertension (principal)
CPT/HCPCS: 36415; 80048

== ENCOUNTER → 2025-02-26 12:50 | Outpatient (CLI) | payer OTHER, SELFPAY ==
[2025-02-26 13:48] LABS: Hemoglobin A1C% w Est Avg Glu 8.0 % (4.0-6.0)
[2025-02-26 14:05] LABS: Blood Urea Nitrogen 23 mg/dL (7-17); Calcium 9.6 mg/dL (8.4-10.2); Carbon Dioxide 24 mmol/L (22-32); Chloride 104 mmol/L (98-107); Estimated Glomerular Filt Rate 56 mL/min (>60); Glucose 127 mg/dL (70-99); HEMOLYSIS < 15 (0-50); Potassium 4.7 mmol/L (3.4-5.1); Sodium 137 mmol/L (137-145)
== END ==
PROVIDERS: Family Provider Internal Medicine Cardiovascular Disease; PCP Internal Medicine; Referring Provider Internal Medicine Cardiovascular Disease; Visit Provider Internal Medicine
DX: E11.9 Type 2 diabetes mellitus without complications (principal)
CPT/HCPCS: 36415; 80048; 83036